=== PATIENT | male | born 1950 | race Caucasian/White ===

== ENCOUNTER 2019-03-20 12:18 | Emergency (ER) | payer MEDICARE ==
--- NOTE | 2019-03-20 12:46 | EDM.PDOC ---
ED HPI GENERAL MEDICAL PROBLEM - General Chief Complaint: Medication Administration Stated Complaint: OUT OF MEDICATIONS Time Seen by Provider: 03/20/19 12:45 Source of Information: Reports: Patient History Limitations: Reports: No Limitations - History of Present Illness INITIAL COMMENTS - FREE TEXT/NARRATIVE: HISTORY AND PHYSICAL: History of present illness: Patient is a 68-year-old male who presents to the emergency room today with complaints of chronic back pain and requesting pain medication refill. He states he is from [place] and did have a relationship with a pain or shortness. He informed his pain management provider that he was moving and voiced concern that his prescriptions were able to be filled across state lines. Initially he was informed that there was no problem with filling his pain medication as long as he followed up appropriately. Patient reports that he has ran out of his morphine and was unable to fill his prescription. He did contact his pain specialist who informed him he needed to find a provider in [place] as these prescriptions were not able to be transferred out of state. He states his other medications are available to him and he does have an appointment next week with her primary care provider. He is concerned of not having any pain management until that appointment. He denies any new injury, trauma or falls. Patient denies any fever, chills, headache, change in vision, syncope or near syncope. Denies any chest pain, shortness of breath or cough. Denies any abdominal pain, nausea, vomiting, diarrhea, constipation or dysuria. Has not noted any blood in urine or stool. Patient has been eating and drinking appropriately. Other than the medication refill he offers no other concerns or complaints today. Review of systems: As per history of present illness and below otherwise all systems reviewed and negative. Past medical history: As per history of present illness and as reviewed below otherwise noncontributory. Surgical history: As per history of present illness and as reviewed below otherwise noncontributory. Social history: See social history for further information Family history: As per history of present illness and as reviewed below otherwise noncontributory. Physical exam: General: Well-developed and well-nourished 68-year-old male. Alert and oriented. Nontoxic appearing and in no acute distress. HEENT: Atraumatic, normocephalic, pupils equal and reactive bilaterally, negative for conjunctival pallor or scleral icterus, mucous membranes moist, nontender, trachea midline. No drooling or trismus noted. No meningeal signs. No hot potato voice noted. Lungs: Clear to auscultation, breath sounds equal bilaterally, chest nontender. Heart: S1S2, regular rate and rhythm without overt murmur Abdomen: Soft, nondistended, nontender. Skin: Intact, warm, dry. No lesions or rashes noted. Extremities: Atraumatic, moves all extremities per self without difficulty or deficits, negative for cords or calf pain. Neurovascular unremarkable. Neuro: Awake, alert, oriented. Cranial nerves II through XII unremarkable. Cerebellum unremarkable. Motor and sensory unremarkable throughout. Exam nonfocal. Notes: Informed patient I would not be able to fill his morphine. He states he has used hydrocodone in the past. We did call and confirm that he has an appointment with a primary care provider on March 28. I will give him [place] to help alleviate discomfort until he is able to follow-up and establish care. He declines the need for any diagnostic testing at this time. Supportive care measures were reviewed and discussed. Voices understanding and is agreeable to plan of care. Denies any further questions or concerns at this time. Diagnostics: None Therapeutics: Dilaudid IM Prescription: [place] (#30) Impression: Encounter for medication refill Chronic back pain Plan: 1. Take your medications as prescribed and as needed. 2. Keep your appointment with primary care to establish care and further medication refills. 3. Return to the ED as needed and as discussed. Definitive disposition and diagnosis as appropriate pending reevaluation and review of above. Back Pain Score (Numeric/FACES): 10 - Related Data Allergies Allergy/AdvReac Type Severity Reaction Status Date / Time codeine Allergy Dizziness Verified 03/20/19 12:46 Penicillins Allergy Rash Verified 03/20/19 12:46 Home Meds: Home Meds Acetaminophen/HYDROcodone [[place] 325-10 MG] 1 tab PO Q4H PRN #30 tab 03/20/19 [ Rx] Carisoprodol [Soma] 350 mg PO BID 03/20/19 [History] Fluticasone/Salmeterol [Advair 250-50 Diskus] 1 puff INH DAILY 03/20/19 [History ] Morphine 15 mg PO BID 03/20/19 [History] Morphine [MS Contin] 60 mg PO BID 03/20/19 [History] Sertraline HCl [Zoloft] 100 mg PO DAILY 03/20/19 [History] Umeclidinium [place] [Incruse Ellipta*] 1 puff INH DAILY 03/20/19 [History] ED ROS GENERAL - Review of Systems Review Of Systems: ROS reveals no pertinent complaints other than HPI. ED EXAM, GENERAL - Physical Exam Exam: See Below (See dictation) Course - Vital Signs Last Recorded V/S: Last Vital Signs Temp 96.7 F 03/20/19 12:40 Pulse 82 03/20/19 13:32 Resp 12 03/20/19 13:32 BP 103/71 03/20/19 13:32 Pulse Ox 94 L 03/20/19 13:32 - Orders/Labs/Meds Meds: Medications Discontinued Medications Generic Name Dose Route Start Last Admin Trade Name Freq PRN Reason Stop Dose Admin Hydromorphone HCl 1 mg 03/20/19 12:55 03/20/19 13:04 Dilaudid IM 03/20/19 12:56 Not Given ONETIME ONE Hydromorphone HCl 1 mg 03/20/19 13:03 03/20/19 13:11 Dilaudid IM 03/20/19 13:04 1 mg ONETIME ONE Administration Departure - Departure Time of Disposition: 13:00 Disposition: Home, Self-Care 01 Clinical Impression: Encounter for medication refill Chronic back pain Qualifiers: Back pain location: low back pain Back pain laterality: midline Sciatica presence: without sciatica Qualified Code(s): M54.5 - Low back pain - Discharge Information Prescriptions: Acetaminophen/HYDROcodone [[place] 325-10 MG] 1 tab PO Q4H PRN #30 tab PRN Reason: Pain Instructions: Chronic Back Pain, [id number] Referrals: PCP,None [Primary Care Provider] - Forms: ED Department Discharge Additional Instructions: The following information is given to patients seen in the emergency department who are being discharged to home. This information is to outline your options for follow-up care. We provide all patients seen in our emergency department with a follow-up referral. The need for follow-up, as well as the timing and circumstances, are variable depending upon the specifics of your emergency department visit. If you don't have a primary care physician on staff, we will provide you with a referral. We always advise you to contact your personal physician following an emergency department visit to inform them of the circumstance of the visit and for follow-up with them and/or the need for any referrals to a consulting specialist. The emergency department will also refer you to a specialist when appropriate. This referral assures that you have the opportunity for follow-up care with a specialist. All of these measure are taken in an effort to provide you with optimal care, which includes your follow-up. Under all circumstances we always encourage you to contact your private physician who remains a resource for coordinating your care. When calling for follow-up care, please make the office aware that this follow-up is from your recent emergency room visit. If for any reason you are refused follow-up, please contact the [facility] Emergency Department at and asked to speak to the emergency department charge nurse. [facility] [address] [place] [id number] [facility] [address] [place] [id number] 1. Take your medications as prescribed and as needed. 2. Keep your appointment with primary care to establish care and further medication refills. 3. Return to the ED as needed and as discussed.
[2019-03-20] MEDS ORDERED: HYDROmorphone 2 MG/ML SDV IM ONE (12:55)
[2019-03-20] MEDS ORDERED: HYDROmorphone 1 MG/ML Syringe IM ONE (13:03)
== END 2019-03-20 13:34 | disposition home or self-care (01) ==
LOC: MW.ED 12:18
DX: G89.29 Other chronic pain (principal); M54.9 Dorsalgia, unspecified; Z88.5 Allergy status to narcotic agent; Z88.0 Allergy status to penicillin; Z79.899 Other long term (current) drug therapy; Z76.0 Encounter for issue of repeat prescription
CPT/HCPCS: 96372; 99281; J1170

== ENCOUNTER 2019-03-22 18:30 | Emergency (ER) | payer MEDICARE ==
--- NOTE | 2019-03-22 19:06 | EDM.PDOC ---
ED HPI GENERAL MEDICAL PROBLEM - General Stated Complaint: CHRONIC PAIN Time Seen by Provider: 03/22/19 18:34 Source of Information: Reports: Patient History Limitations: Reports: No Limitations - History of Present Illness INITIAL COMMENTS - FREE TEXT/NARRATIVE: HISTORY AND PHYSICAL: History of present illness: Patient is a 68-year-old male presents to the ED today for desire to receive narcotic medication. Patient states he has been on chronic narcotic medication by his primary care provider in [facility]. Patient states he recently moved here about a week ago and since then has been out of his medication. Patient was seen in the ED a few days ago (03/20/2019), 2 days ago, and was given 30 of [place] to tide him over until his primary care appointment in a week. Patient states he is currently out of the [place] that he was given 2 days ago as he has taken them all. Patient states he is concerned because he is starting to have withdrawal symptoms. Patient denies any other symptoms or concerns at this time. Patient denies fever, chills, chest pain, shortness of breath, or cough. Denies headache, neck stiff ness, change in vision, syncope, or near syncope. Denies nausea, vomiting, abdominal pain, diarrhea, constipation, or dysuria. Has not noted any blood in urine or stool. Patient has been eating and drinking appropriately. Review of systems: As per history of present illness and below otherwise all systems reviewed and negative. Past medical history: As per history of present illness and as reviewed below otherwise noncontributory. Surgical history: As per history of present illness and as reviewed below otherwise noncontributory. Social history: See social history for further information Family history: As per history of present illness and as reviewed below otherwise noncontributory. Physical exam: General: Patient is alert, oriented, and in no acute distress. Patient sitting comfortably on exam table. HEENT: Atraumatic, normocephalic, pupils equal and reactive bilaterally, negative for conjunctival pallor or scleral icterus, mucous membranes moist, TMs normal bilaterally, throat clear, neck supple, nontender, trachea midline. No drooling or trismus noted. No meningeal signs. No hot potato voice noted. Lungs: Clear to auscultation, breath sounds equal bilaterally, chest nontender. Heart: S1S2, regular rate and rhythm without overt murmur Abdomen: Soft, nondistended, nontender. Negative for masses or hepatosplenomegaly. Negative for costovertebral tenderness. Pelvis: Stable nontender. Genitourinary: Deferred. Rectal: Deferred. Skin: Intact, warm, dry. No lesions or rashes noted. Extremities: Atraumatic, negative for cords or calf pain. Neurovascular unremarkable. Neuro: Awake, alert, oriented. Cranial nerves II through XII unremarkable. Cerebellum unremarkable. Motor and sensory unremarkable throughout. Exam nonfocal. Notes: Discussed the importance of follow-up with his primary care provider as scheduled. Voices understanding and is agreeable to plan of care. Denies any further questions or concerns at this time. Diagnostics: Patient declines any diagnostics. Therapeutics: None Prescription: None Impression: Encounter for medical screening Encounter for pain management Plan: 1. Take medication that has been priorly prescribed to you. Alternate ibuprofen and Tylenol as directed for pain and discomfort. 2. Rest, ice, elevate the affected area. You can apply ice and or heat 15 minutes on, 15 minutes off. 3. Follow up with the primary care provider as discussed and as scheduled. Return to the ED as needed and as discussed. Definitive disposition and diagnosis as appropriate pending reevaluation and review of above. - Related Data Allergies Allergy/AdvReac Type Severity Reaction Status Date / Time codeine Allergy Dizziness Verified 03/22/19 18:47 Penicillins Allergy Rash Verified 03/22/19 18:47 Home Meds: Home Meds Acetaminophen/HYDROcodone [[place] 325-10 MG] 1 tab PO Q4H PRN #30 tab 03/20/19 [ Rx] Carisoprodol [Soma] 350 mg PO BID 03/20/19 [History] Fluticasone/Salmeterol [Advair 250-50 Diskus] 1 puff INH DAILY 03/20/19 [History ] Morphine 15 mg PO BID 03/20/19 [History] Morphine [MS Contin] 60 mg PO BID 03/20/19 [History] Sertraline HCl [Zoloft] 100 mg PO DAILY 03/20/19 [History] Umeclidinium [place] [Incruse Ellipta*] 1 puff INH DAILY 03/20/19 [History] Past Medical History Cardiovascular History: Reports: [place] Respiratory History: Reports: COPD, Other (See Below) Other Respiratory History: O2 at home Genitourinary History: Reports: None Musculoskeletal History: Reports: Back Pain, Chronic - Infectious Disease History Infectious Disease History: Reports: None - Past Surgical History GI Surgical History: Reports: Hernia, Abdominal Social & Family History - Family History Family Medical History: Noncontributory - Tobacco Use Smoking Status *Q: Never Smoker Second Hand Smoke Exposure: No - Caffeine Use Caffeine Use: Reports: None - Recreational Drug Use Recreational Drug Use: No ED ROS GENERAL - Review of Systems Review Of Systems: ROS reveals no pertinent complaints other than HPI. ED EXAM, GENERAL - Physical Exam Exam: See Below (See dictation) Course - Vital Signs Last Recorded V/S: Last Vital Signs Temp 35.9 C 03/22/19 18:47 Pulse 100 03/22/19 19:14 Resp 20 03/22/19 19:14 BP 159/126 H 03/22/19 19:14 Pulse Ox 100 03/22/19 19:14 Departure - Departure Time of Disposition: 19:05 Disposition: Home, Self-Care 01 Clinical Impression: Encounter for pain management, Encounter for medical screening examination - Discharge Information Instructions: Medical Screening Exam Referrals: PCP,None [Primary Care Provider] - Forms: ED Department Discharge Additional Instructions: The following information is given to patients seen in the emergency department who are being discharged to home. This information is to outline your options for follow-up care. We provide all patients seen in our emergency department with a follow-up referral. The need for follow-up, as well as the timing and circumstances, are variable depending upon the specifics of your emergency department visit. If you don't have a primary care physician on staff, we will provide you with a referral. We always advise you to contact your personal physician following an emergency department visit to inform them of the circumstance of the visit and for follow-up with them and/or the need for any referrals to a consulting specialist. The emergency department will also refer you to a specialist when appropriate. This referral assures that you have the opportunity for follow-up care with a specialist. All of these measure are taken in an effort to provide you with optimal care, which includes your follow-up. Under all circumstances we always encourage you to contact your private physician who remains a resource for coordinating your care. When calling for follow-up care, please make the office aware that this follow-up is from your recent emergency room visit. If for any reason you are refused follow-up, please contact the [facility] Emergency Department at and asked to speak to the emergency department charge nurse. [facility] [address] [place] [id number] [address] 1. Take medication as prescribed. Alternate ibuprofen and Tylenol as directed for pain and discomfort. 2. Follow-up with a primary care provider as discussed. Return to the ED as needed and as discussed.
== END 2019-03-22 19:30 | disposition home or self-care (01) ==
LOC: MW.ED 18:30
DX: Z13.9 Encounter for screening, unspecified (principal); J44.9 Chronic obstructive pulmonary disease, unspecified; I25.2 Old myocardial infarction; Z79.899 Other long term (current) drug therapy; Z88.0 Allergy status to penicillin; Z88.5 Allergy status to narcotic agent
CPT/HCPCS: 93005; 99282; 99284

== ENCOUNTER 2019-04-11 12:52 | Emergency (ER) | payer MEDICARE ==
[2019-04-11] MEDS ORDERED: Acetaminophen/HYDROcodone 325-5 MG Tab PO ONE (13:08)
--- NOTE | 2019-04-11 13:12 | EDM.PDOC ---
ED HPI GENERAL MEDICAL PROBLEM - General Chief Complaint: Back Pain or Injury Stated Complaint: BACK PAIN Time Seen by Provider: 04/11/19 12:53 Source of Information: Reports: Patient History Limitations: Reports: No Limitations - History of Present Illness INITIAL COMMENTS - FREE TEXT/NARRATIVE: HISTORY AND PHYSICAL: History of present illness: Patient is a 68-year-old male who presents to the emergency room requesting narcotic pain medication refill. Patient states he has been on narcotic pain medication chronically for several years. Recently moved to [place] from [place] and states that his provider is no longer able to prescribe for him. He has been seen in our emergency room several times for medication refill. He states he did have an appointment with a primary care provider yesterday but this appointment was canceled. Other than the desire for pain medication refill. Offers no other concerns or complaints at this time. Patient denies any fever, chills, headache, change in vision, syncope or near syncope. Denies any chest pain, back pain, shortness of breath or cough. Denies any abdominal pain, nausea, vomiting, diarrhea, constipation or dysuria. Has not noted any blood in urine or stool. Patient has been eating and drinking appropriately. Review of systems: As per history of present illness and below otherwise all systems reviewed and negative. Past medical history: As per history of present illness and as reviewed below otherwise noncontributory. Surgical history: As per history of present illness and as reviewed below otherwise noncontributory. Social history: See social history for further information Family history: As per history of present illness and as reviewed below otherwise noncontributory. Physical exam: General: Well-developed and well-nourished 68-year-old male. Alert and oriented. Nontoxic appearing and in no acute distress. HEENT: Atraumatic, normocephalic, pupils equal and reactive bilaterally, negative for conjunctival pallor or scleral icterus, mucous membranes moist, neck supple, nontender, trachea midline. No drooling or trismus noted. No meningeal signs. No hot potato voice noted. Lungs: Clear to auscultation, breath sounds equal bilaterally, chest nontender. Heart: S1S2, regular rate and rhythm without overt murmur Abdomen: Soft, nondistended, nontender. Skin: Intact, warm, dry. No lesions or rashes noted. Extremities: Atraumatic, moves all extremities per self without difficulty or deficits, negative for cords or calf pain. Neurovascular unremarkable. Neuro: Awake, alert, oriented. Cranial nerves II through XII unremarkable. Cerebellum unremarkable. Motor and sensory unremarkable throughout. Exam nonfocal. Notes: I did contact the clinic office to see if we could get him an expedited appointment. The office states that he canceled the appointment himself yesterday and did not show up. We were able to get him an appointment for April 17 at 10:30 AM with his newly appointed primary care provider. Patient declines the need for any diagnostics at this time. Supportive care measures were reviewed and discussed. Voices understanding and is agreeable to plan of care. Denies any further questions or concerns at this time. Diagnostics: None Therapeutics: [facility] Prescription: Diclofenac Impression: Encounter for medication refill Encounter for chronic pain management Plan: 1. The medication you received does cause drowsiness so do not drive for the remaining day 2. When resting please lay on a flat firm surface. Limit your immobility to prevent muscle stiffness, get up to ambulate/move around/gentle stretching multiple times throughout the day. May alternate heat and ice to the painful areas 3. Tylenol as needed for back pain. Diclofenac is an anti-inflammatory so do not take any additional NSAIDs with this medication, such as ibuprofen or Aleve. 4. We made you an expedited follow up appointment with Dr Gonzales at [facility] for April 17 (Monday) at 10:30am. 5. Return to the ED as needed and as discussed. Definitive disposition and diagnosis as appropriate pending reevaluation and review of above. Duration: Chronic back Pain Score (Numeric/FACES): 10 - Related Data Allergies Allergy/AdvReac Type Severity Reaction Status Date / Time codeine Allergy Dizziness Verified 03/22/19 18:47 Penicillins Allergy Rash Verified 03/22/19 18:47 Home Meds: Home Meds Acetaminophen/HYDROcodone [[place] 325-10 MG] 1 tab PO Q4H PRN #30 tab 03/20/19 [ Rx] Carisoprodol [Soma] 350 mg PO BID 03/20/19 [History] Fluticasone/Salmeterol [Advair 250-50 Diskus] 1 puff INH DAILY 03/20/19 [History ] Sertraline HCl [Zoloft] 100 mg PO DAILY 03/20/19 [History] Umeclidinium [place] [Incruse Ellipta*] 1 puff INH DAILY 03/20/19 [History] Diclofenac Sodium [Voltaren] 75 mg PO BIDMEALS PRN #30 tab.cr 04/11/19 [Rx] Morphine [MS Contin] 75 mg PO Q12HR 04/11/19 [History] Past Medical History HEENT History: Reports: None Cardiovascular History: Reports: [place] Respiratory History: Reports: COPD, Other (See Below) Other Respiratory History: O2 at home Gastrointestinal History: Reports: None Genitourinary History: Reports: None Musculoskeletal History: Reports: Back Pain, Chronic Neurological History: Reports: None Psychiatric History: Reports: None Endocrine/Metabolic History: Reports: None Hematologic History: Reports: None Immunologic History: Reports: None Oncologic (Cancer) History: Reports: None Dermatologic History: Reports: None - Infectious Disease History Infectious Disease History: Reports: None - Past Surgical History Head Surgeries/Procedures: Reports: None HEENT Surgical History: Reports: None Cardiovascular Surgical History: Reports: None Respiratory Surgical History: Reports: None GI Surgical History: Reports: Hernia, Abdominal Male Surgical History: Reports: None Endocrine Surgical History: Reports: None Neurological Surgical History: Reports: None Musculoskeletal Surgical History: Reports: None Oncologic Surgical History: Reports: None Dermatological Surgical History: Reports: None Social & Family History - Family History Family Medical History: Noncontributory - Tobacco Use Smoking Status *Q: Never Smoker Second Hand Smoke Exposure: No - Caffeine Use Caffeine Use: Reports: None - Recreational Drug Use Recreational Drug Use: No ED ROS GENERAL - Review of Systems Review Of Systems: ROS reveals no pertinent complaints other than HPI. ED EXAM,LOWER BACK PAIN/INJURY - Physical Exam Exam: See Below (See dictation) Course - Vital Signs Last Recorded V/S: Last Vital Signs Temp 97.6 F 04/11/19 12:57 Pulse 112 H 04/11/19 12:57 Resp 18 04/11/19 12:57 BP 137/96 H 04/11/19 12:57 Pulse Ox 97 04/11/19 12:57 - Orders/Labs/Meds Meds: Medications Discontinued Medications Generic Name Dose Route Start Last Admin Trade Name Freq PRN Reason Stop Dose Admin Hydrocodone Bitart/Acetaminophen 2 tab 04/11/19 13:08 04/11/19 13:15 [place] 325-5 Mg PO 04/11/19 13:09 2 tab ONETIME ONE Administration Departure - Departure Time of Disposition: 13:11 Disposition: Home, Self-Care 01 Clinical Impression: Encounter for medication refill, Encounter for pain management - Discharge Information Prescriptions: Diclofenac Sodium [Voltaren] 75 mg PO BIDMEALS PRN #30 tab.cr PRN Reason: Pain Instructions: Medicine Refill at the Emergency Department Referrals: PCP,None [Primary Care Provider] - Forms: ED Department Discharge Additional Instructions: The following information is given to patients seen in the emergency department who are being discharged to home. This information is to outline your options for follow-up care. We provide all patients seen in our emergency department with a follow-up referral. The need for follow-up, as well as the timing and circumstances, are variable depending upon the specifics of your emergency department visit. If you don't have a primary care physician on staff, we will provide you with a referral. We always advise you to contact your personal physician following an emergency department visit to inform them of the circumstance of the visit and for follow-up with them and/or the need for any referrals to a consulting specialist. The emergency department will also refer you to a specialist when appropriate. This referral assures that you have the opportunity for follow-up care with a specialist. All of these measure are taken in an effort to provide you with optimal care, which includes your follow-up. Under all circumstances we always encourage you to contact your private physician who remains a resource for coordinating your care. When calling for follow-up care, please make the office aware that this follow-up is from your recent emergency room visit. If for any reason you are refused follow-up, please contact the [facility] at and asked to speak to the emergency department charge nurse. [facility] [address] [place] [address] [id number] [address] [address] 1. You can not use the emergency room for chronic pain management and medication refills. 2. When resting please lay on a flat firm surface. Limit your immobility to prevent muscle stiffness, get up to ambulate/move around/gentle stretching multiple times throughout the day. May alternate heat and ice to the painful areas 3. Tylenol as needed for back pain. Diclofenac is an anti-inflammatory so do not take any additional NSAIDs with this medication, such as ibuprofen or Aleve. 4. We made you an expedited follow up appointment with Dr Gonzales at [facility] for April 17 (Monday) at 10:30am. 5. Return to the ED as needed and as discussed.
== END 2019-04-11 13:21 | disposition home or self-care (01) ==
LOC: MW.ED 12:52
DX: Z76.0 Encounter for issue of repeat prescription (principal); Z01.89 Encounter for other specified special examinations; I25.2 Old myocardial infarction; J44.9 Chronic obstructive pulmonary disease, unspecified; Z88.0 Allergy status to penicillin; Z88.5 Allergy status to narcotic agent; Z79.899 Other long term (current) drug therapy; Z99.81 Dependence on supplemental oxygen
CPT/HCPCS: 99281; A9270

== ENCOUNTER 2019-11-16 05:52 | Inpatient (IN) | payer MEDICARE ==
[2019-11-16] MEDS ORDERED: Albuterol/Ipratropium 3.0-0.5 MG/3 ML Neb Soln NEB ONE (05:55)
[2019-11-16] MEDS ORDERED: Ondansetron 4 MG/2 ML SDV IVPUSH ONE (05:58)
--- NOTE | 2019-11-16 05:58 | EDM.PDOC ---
ED HPI GENERAL MEDICAL PROBLEM - General Stated Complaint: CHEST PAIN Time Seen by Provider: 11/16/19 05:52 - History of Present Illness INITIAL COMMENTS - FREE TEXT/NARRATIVE: Pt with a reported pmh of MD in the past, COPD, and Chronic pain presents with Central chest pressure like pain, moderate since last evening. Pt also reports having a morphine pump for chronic neck and back pain, but it has been out for 1 year. Pt reports taking breathing treatments, but not maintance inhaler due to side effects. chest area Pain Score (Numeric/FACES): 10 - Related Data Allergies Allergy/AdvReac Type Severity Reaction Status Date / Time codeine Allergy Dizziness Verified 11/16/19 05:59 Penicillins Allergy Rash Verified 11/16/19 05:59 Home Meds: Home Meds Fluticasone/Salmeterol [Advair 250-50 Diskus] 1 puff INH DAILY 03/20/19 [History ] Sertraline HCl [Zoloft] 100 mg PO DAILY 03/20/19 [History] Umeclidinium [place] [Incruse Ellipta*] 1 puff INH DAILY 03/20/19 [History] carisoprodoL [Soma] 350 mg PO BID 03/20/19 [History] Diclofenac Sodium [Voltaren] 75 mg PO BIDMEALS PRN #30 tab.cr 04/11/19 [Rx] Morphine [MS Contin] 90 mg PO Q12HR 04/11/19 [History] Past Medical History HEENT History: Reports: None Cardiovascular History: Reports: [place] Respiratory History: Reports: COPD, Other (See Below) Other Respiratory History: O2 at home Gastrointestinal History: Reports: None Genitourinary History: Reports: None Musculoskeletal History: Reports: Back Pain, Chronic Neurological History: Reports: None Psychiatric History: Reports: None Endocrine/Metabolic History: Reports: None Hematologic History: Reports: None Immunologic History: Reports: None Oncologic (Cancer) History: Reports: None Dermatologic History: Reports: None - Infectious Disease History Infectious Disease History: Reports: None - Past Surgical History Head Surgeries/Procedures: Reports: None HEENT Surgical History: Reports: None Cardiovascular Surgical History: Reports: None Respiratory Surgical History: Reports: None GI Surgical History: Reports: Hernia, Abdominal Male Surgical History: Reports: None Endocrine Surgical History: Reports: None Neurological Surgical History: Reports: None Musculoskeletal Surgical History: Reports: None Oncologic Surgical History: Reports: None Dermatological Surgical History: Reports: None Social & Family History - Family History Family Medical History: Noncontributory - Caffeine Use Caffeine Use: Reports: None ED ROS GENERAL - Review of Systems Review Of Systems: See Below Constitutional: Reports: Malaise, Fatigue HEENT: Reports: No Symptoms Respiratory: Reports: Shortness of Breath, Cough Cardiovascular: Reports: Chest Pain GI/Abdominal: Reports: Nausea, Vomiting. Denies: Abdominal Pain Neurological: Reports: No Symptoms ED EXAM, GENERAL - Physical Exam Exam: See Below Exam Limited By: No Limitations General Appearance: Alert, No Apparent Distress Eye Exam: Bilateral Eye: Corneal Abrasion Head: Atraumatic, Normocephalic Respiratory/Chest: No Respiratory Distress, Lungs Clear, Normal Breath Sounds Cardiovascular: Regular Rate, Rhythm, No Murmur GI/Abdominal: Soft, Non-Tender, No Distention Extremities: Normal Inspection Neurological: Alert, Oriented EKG INTERPRETATION Rhythm: NSR QRS: Normal ST-T: Normal EKG Interpretation Comments: No STEMI Course - Vital Signs Last Recorded V/S: Last Vital Signs Temp 98.3 F 11/16/19 05:55 Pulse 120 H 11/16/19 07:36 Resp 20 11/16/19 07:36 BP 134/83 11/16/19 07:36 Pulse Ox 99 11/16/19 07:36 - Orders/Labs/Meds Orders: Active Orders 24 hr Category Date Time Status Admission Status [Patient Status] [ADT] Stat ADT 11/16/19 07:47 Ordered EKG Documentation Completion [RC] STAT Care 11/16/19 05:57 Active RT Aerosol Therapy [RC] ASDIRECTED Care 11/16/19 05:55 Active RT Aerosol Therapy [RC] ASDIRECTED Care 11/16/19 06:11 Active CULTURE BLOOD [BC] Stat Lab 11/16/19 06:55 Received CULTURE BLOOD [BC] Stat Lab 11/16/19 07:10 Received Levofloxacin/Dextrose 5%-Water [Levaquin in D5W 750 MG/ Med 11/16/19 07:16 Active 150 ML] 750 mg Premix Bag 1 bag IV ONETIME Blood Culture x2 Reflex Set [OM.PC] Stat Oth 11/16/19 06:49 Ordered Medication Orders Levofloxacin/Dextrose 750 mg/ (Premix) 150 mls @ 100 mls/hr IV ONETIME ONE Stop: 11/16/19 08:45 Last Admin: 11/16/19 07:26 Dose: 100 mls/hr Labs: Laboratory Tests 11/16/19 11/16/19 11/16/19 Range/Units 06:05 06:05 06:05 WBC 12.13 H (4.0-11.0) K/uL RBC 6.24 H (4.50-5.90) M/uL Hgb 12.8 L (13.0-17.0) g/dL Hct 40.1 (38.0-50.0) % MCV 64.3 L (80.0-98.0) fL MCH 20.5 L (27.0-32.0) pg MCHC 31.9 (31.0-37.0) g/dL RDW Std Deviation 39.2 (28.0-62.0) fl RDW Coeff of Roger 17 H (11.0-15.0) % Plt Count 229 (150-400) K/uL Add Manual Diff YES Neutrophils % (Manual) 76 (48.0-80.0) % Lymphocytes % (Manual) 18 (16.0-40.0) % Monocytes % (Manual) 6 (0.0-15.0) % Nucleated RBC % 0.0 /100WBC Absolute Seg Neuts 9.2 H (1.4-5.7) Lymphocytes # (Manual) 2.2 (0.6-2.4) Monocytes # (Manual) 0.7 (0.0-0.8) Nucleated RBCs # 0 K/uL INR 1.14 D-Dimer, Quantitative (0.0-0.50) mg/L FEU Lactate (0.20-2.00) mmol/L Sodium 142 (136-148) mmol/L Potassium 3.3 L (3.5-5.1) mmol/L Chloride 105 (98-107) mmol/L Carbon Dioxide 20.4 L (21.0-32.0) mmol/L BUN 13 (7.0-18.0) mg/dL Creatinine 1.1 (0.8-1.3) mg/dL Est Cr Clr Drug Dosing 70.55 mL/min Estimated GFR (MDRD) > 60.0 ml/min Glucose 126 H (74-106) mg/dL Calcium 9.5 (8.5-10.1) mg/dL Total Bilirubin 1.0 (0.2-1.0) mg/dL AST 19 (15-37) IU/L ALT 23 (14-63) IU/L Alkaline Phosphatase 71 (46-116) U/L Troponin I < 0.050 (0.000-0.056) ng/mL B-Natriuretic Peptide (<100) PG/ML Total Protein 8.6 H (6.4-8.2) g/dL Albumin 4.3 (3.4-5.0) g/dL Globulin 4.3 H (2.6-4.0) g/dL Albumin/Globulin Ratio 1.0 (0.9-1.6) Lipase 332 (73-393) U/L 11/16/19 11/16/19 11/16/19 Range/Units 06:05 06:05 07:10 WBC (4.0-11.0) K/uL RBC (4.50-5.90) M/uL Hgb (13.0-17.0) g/dL Hct (38.0-50.0) % MCV (80.0-98.0) fL MCH (27.0-32.0) pg MCHC (31.0-37.0) g/dL RDW Std Deviation (28.0-62.0) fl RDW Coeff of Roger (11.0-15.0) % Plt Count (150-400) K/uL Add Manual Diff Neutrophils % (Manual) (48.0-80.0) % Lymphocytes % (Manual) (16.0-40.0) % Monocytes % (Manual) (0.0-15.0) % Nucleated RBC % /100WBC Absolute Seg Neuts (1.4-5.7) Lymphocytes # (Manual) (0.6-2.4) Monocytes # (Manual) (0.0-0.8) Nucleated RBCs # K/uL INR D-Dimer, Quantitative 0.39 (0.0-0.50) mg/L FEU Lactate 3.8 H* (0.20-2.00) mmol/L Sodium (136-148) mmol/L Potassium (3.5-5.1) mmol/L Chloride (98-107) mmol/L Carbon Dioxide (21.0-32.0) mmol/L BUN (7.0-18.0) mg/dL Creatinine (0.8-1.3) mg/dL Est Cr Clr Drug Dosing mL/min Estimated GFR (MDRD) ml/min Glucose (74-106) mg/dL Calcium (8.5-10.1) mg/dL Total Bilirubin (0.2-1.0) mg/dL AST (15-37) IU/L ALT (14-63) IU/L Alkaline Phosphatase (46-116) U/L Troponin I (0.000-0.056) ng/mL B-Natriuretic Peptide 25 (<100) PG/ML Total Protein (6.4-8.2) g/dL Albumin (3.4-5.0) g/dL Globulin (2.6-4.0) g/dL Albumin/Globulin Ratio (0.9-1.6) Lipase (73-393) U/L 11/16/19 Range/Units 07:10 WBC (4.0-11.0) K/uL RBC (4.50-5.90) M/uL Hgb (13.0-17.0) g/dL Hct (38.0-50.0) % MCV (80.0-98.0) fL MCH (27.0-32.0) pg MCHC (31.0-37.0) g/dL RDW Std Deviation (28.0-62.0) fl RDW Coeff of Roger (11.0-15.0) % Plt Count (150-400) K/uL Add Manual Diff Neutrophils % (Manual) (48.0-80.0) % Lymphocytes % (Manual) (16.0-40.0) % Monocytes % (Manual) (0.0-15.0) % Nucleated RBC % /100WBC Absolute Seg Neuts (1.4-5.7) Lymphocytes # (Manual) (0.6-2.4) Monocytes # (Manual) (0.0-0.8) Nucleated RBCs # K/uL INR D-Dimer, Quantitative (0.0-0.50) mg/L FEU Lactate (0.20-2.00) mmol/L Sodium (136-148) mmol/L Potassium (3.5-5.1) mmol/L Chloride (98-107) mmol/L Carbon Dioxide (21.0-32.0) mmol/L BUN (7.0-18.0) mg/dL Creatinine (0.8-1.3) mg/dL Est Cr Clr Drug Dosing mL/min Estimated GFR (MDRD) ml/min Glucose (74-106) mg/dL Calcium (8.5-10.1) mg/dL Total Bilirubin (0.2-1.0) mg/dL AST (15-37) IU/L ALT (14-63) IU/L Alkaline Phosphatase (46-116) U/L Troponin I < 0.050 (0.000-0.056) ng/mL B-Natriuretic Peptide (<100) PG/ML Total Protein (6.4-8.2) g/dL Albumin (3.4-5.0) g/dL Globulin (2.6-4.0) g/dL Albumin/Globulin Ratio (0.9-1.6) Lipase (73-393) U/L Meds: Medications Generic Name Dose Route Start Last Admin Trade Name Freq PRN Reason Stop Dose Admin Levofloxacin/Dextrose 750 mg/ 150 mls @ 100 mls/hr 11/16/19 07:16 11/16/19 07 :26 Premix IV 11/16/19 08:45 100 mls/hr ONETIME ONE Administration Discontinued Medications Generic Name Dose Route Start Last Admin Trade Name Freq PRN Reason Stop Dose Admin Albuterol 5 mg 11/16/19 06:11 11/16/19 06:18 Proventil Neb Soln NEB 11/16/19 06:12 5 mg ONETIME ONE Administration Albuterol/Ipratropium 3 ml 11/16/19 05:55 11/16/19 06:08 Duoneb 3.0-0.5 Mg/3 Ml NEB 11/16/19 05:56 3 ml ONETIME ONE Administration Methylprednisolone Sodium Succinate 60 mg 11/16/19 06:09 11/16/19 06:20 Solu-Medrol IVPUSH 11/16/19 06:10 60 mg ONETIME ONE Administration Morphine Sulfate 4 mg 11/16/19 06:13 11/16/19 06:22 Morphine IVPUSH 11/16/19 06:14 4 mg ONETIME ONE Administration Ondansetron HCl 4 mg 11/16/19 05:58 11/16/19 06:08 Zofran IVPUSH 11/16/19 05:59 4 mg ONETIME ONE Administration - Re-Assessments/Exams Free Text/Narrative Re-Assessment/Exam: 11/16/19 07:51 Pt given multiple nebs with significant improvement in oxygenation, ventilation and pain. Cardiac work up with ECG and serial troponins negative. D-Dimer negative. Dr. Longo consulted and pt admitted for Observation. Steroids and levaquin given. pt comfortable with plan. Departure - Departure Time of Disposition: 07:53 Disposition: Refer to Observation Condition: Good Clinical Impression: Shortness of breath Sepsis Event Note - Focused Exam Vital Signs: Vital Signs Temp Pulse Resp BP Pulse Ox 11/16/19 07:36 120 H 20 134/83 99 11/16/19 06:24 103 H 22 H 117/62 100 11/16/19 05:55 98.3 F 109 H 20 139/90 96 Date Exam was Performed: 11/16/19 Time Exam was Performed: 07:50 - My Orders Last 24 Hours: My Active Orders 11/16/19 05:55 RT Aerosol Therapy [RC] ASDIRECTED 11/16/19 05:57 EKG Documentation Completion [RC] STAT 11/16/19 06:11 RT Aerosol Therapy [RC] ASDIRECTED 11/16/19 06:49 Blood Culture x2 Reflex Set [OM.PC] Stat 11/16/19 06:55 CULTURE BLOOD [BC] Stat 11/16/19 07:10 CULTURE BLOOD [BC] Stat 11/16/19 07:16 Levofloxacin/Dextrose 5%-Water [Levaquin in D5W 750 MG/150 ML] 750 mg Premix Bag 1 bag IV ONETIME 11/16/19 07:47 Admission Status [Patient Status] [ADT] Stat - Assessment/Plan Last 24 Hours: My Active Orders 11/16/19 05:55 RT Aerosol Therapy [RC] ASDIRECTED 11/16/19 05:57 EKG Documentation Completion [RC] STAT 11/16/19 06:11 RT Aerosol Therapy [RC] ASDIRECTED 11/16/19 06:49 Blood Culture x2 Reflex Set [OM.PC] Stat 11/16/19 06:55 CULTURE BLOOD [BC] Stat 11/16/19 07:10 CULTURE BLOOD [BC] Stat 11/16/19 07:16 Levofloxacin/Dextrose 5%-Water [Levaquin in D5W 750 MG/150 ML] 750 mg Premix Bag 1 bag IV ONETIME 11/16/19 07:47 Admission Status [Patient Status] [ADT] Stat
[2019-11-16] MEDS ORDERED: methylPREDNISolone Sodium Succinate 40 MG/1 ML SDV IVPUSH ONE (06:09)
[2019-11-16] MEDS ORDERED: Albuterol 0.083% 2.5 MG/3 ML Neb Soln NEB ONE (06:11)
[2019-11-16] MEDS ORDERED: Morphine 4 MG/ML Syringe IVPUSH ONE (06:13)
--- NOTE | 2019-11-16 06:17 | CR ---
INDICATION: Chest pain, shortness of breath TECHNIQUE: Chest radiograph 1 view COMPARISON: None FINDINGS: Mediastinum: The mediastinum is normal in appearance. The heart silhouette is normal in size and morphology. Lung: There is a 6 mm nodule present in the right lung base, likely a calcified granuloma given its density for size. No sign of pleural effusion seen. No pneumothorax is identified. Bone and Soft tissue: ACDF of the cervical spine is noted. 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 IMPRESSION: 1. There is a 6 mm nodule present in the right lung base, likely a calcified granuloma given its density for size. Comparison with any prior outside imaging is recommended. If these cannot be obtained, follow up chest radiograph in 3 months is warranted to document stability. Dictated by Howie Triplett MD @ 11/16/2019 6:15:06 AM Dictated by: Howie Triplett MD @ 11/16/2019 06:15:09 (Electronically Signed)
[2019-11-16 06:41] LABS: BLOOD UREA NITROGEN,BUN 13 mg/dL (7.0-18.0); CARBON DIOXIDE,CO2 20.4 mmol/L (21.0-32.0); CHLORIDE,CL 105 mmol/L (98-107); GLUCOSE RANDOM 126 mg/dL (74-106); LIPASE 332 U/L (73-393); POTASSIUM,K 3.3 mmol/L (3.5-5.1); SODIUM,NA 142 mmol/L (136-148)
[2019-11-16] MEDS ORDERED: Levofloxacin/Dextrose 5%-Water 750 MG in Premix Bag 1 BAG IV ONE (07:16)
[2019-11-16] MEDS ORDERED: Albuterol/Ipratropium 3.0-0.5 MG/3 ML Neb Soln NEB PRN (08:56)
[2019-11-16] MEDS ORDERED: Lactated Ringers 1,000 ML IV SCH (09:00)
--- NOTE | 2019-11-16 09:40 | PCM.HP.2 ---
H&P History of Present Illness - General Date of Service: 11/16/19 Admit Problem/Dx: Admission Diagnosis/Problem Admission Diagnosis/Problem Shortness of breath - History of Present Illness Initial Comments - Free Text/Narative: Pt with PMH of CAD, COPD, panic attacks, and Chronic pain presents with chest pain, started since last evening, pain is sharp and comes in goes intermittently. No radiation. Patient also reports worsening shortness of breath. Patient states that he was diagnosed with pneumonia few weeks back and "suspected he has pneumonia". He was on home oxygen intermittently but currently has no home oxygen. Pt also reports having a morphine pump for chronic neck and back pain, but it has been non-functional for 1 year. He hasn' t been able to get it removed yet as he needs "specialized surgeon" as per the patient. Pt reports taking breathing treatments, but not maintenance inhaler due to side effects. Patient xray showed no infiltrate but did show lung nodule which needs outpatient f/u. Patient was tachycardiac, but not hypoxic, was admitted fro COPD exacerbation. Onset of Symptoms: Reports: Gradual Duration of Symptoms: Reports: Day(s): Location: Reports: Chest Quality: Reports: Sharp Severity: Moderate Improves with: Reports: None Worsens with: Reports: None chest area Pain Score (Numeric/FACES): 10 - Related Data Allergies/Adverse Reactions: Allergies Allergy/AdvReac Type Severity Reaction Status Date / Time codeine Allergy Dizziness Verified 11/16/19 08:40 Penicillins Allergy Rash Verified 11/16/19 08:40 Home Medications: Home Meds Fluticasone/Salmeterol [Advair 250-50 Diskus] 1 puff INH DAILY 03/20/19 [History ] Sertraline HCl [Zoloft] 100 mg PO DAILY 03/20/19 [History] Umeclidinium [place] [Incruse Ellipta*] 1 puff INH DAILY 03/20/19 [History] carisoprodoL [Soma] 350 mg PO BID PRN 03/20/19 [History] Diclofenac Sodium [Voltaren] 75 mg PO BIDMEALS PRN #30 tab.cr 04/11/19 [Rx] Morphine Sulfate 15 mg PO BID PRN 11/16/19 [History] Morphine Sulfate [Morphine Sulfate Cr] 60 mg PO BID PRN 02/15/20 [History] Morphine Sulfate [Morphine Sulfate ER] 15 mg PO BID PRN 11/16/19 [History] Omeprazole 20 mg PO BID 11/16/19 [History] Past Medical History HEENT History: Reports: None Cardiovascular History: Reports: [place] Respiratory History: Reports: COPD, Other (See Below) Other Respiratory History: O2 at home Gastrointestinal History: Reports: None Genitourinary History: Reports: None Musculoskeletal History: Reports: Back Pain, Chronic Neurological History: Reports: None Psychiatric History: Reports: None Endocrine/Metabolic History: Reports: None 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 [employer] 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: None Hematologic History: Reports: None Immunologic History: Reports: None Oncologic (Cancer) History: Reports: None Dermatologic History: Reports: None - Infectious Disease History Infectious Disease History: Reports: Chicken Pox, Measles, Mumps, Shingles - Past Surgical History Head Surgeries/Procedures: Reports: None HEENT Surgical History: Reports: None Cardiovascular Surgical History: Reports: None Respiratory Surgical History: Reports: None GI Surgical History: Reports: Hernia, Abdominal Male Surgical History: Reports: None Endocrine Surgical History: Reports: None Neurological Surgical History: Reports: None Musculoskeletal Surgical History: Reports: None Oncologic Surgical History: Reports: None Dermatological Surgical History: Reports: None Social & Family History - Family History Family Medical History: Noncontributory - Tobacco Use Smoking Status *Q: Never Smoker Used Tobacco, but Quit: No Second Hand Smoke Exposure: No - Caffeine Use Caffeine Use: Reports: Soda - Recreational Drug Use Recreational Drug Use: No H&P Review of Systems - Review of Systems: Review Of Systems: See Below General: Denies: Fever, Chills, Malaise HEENT: Denies: Contact Lenses Pulmonary: Reports: Shortness of Breath, Wheezing, Cough. Denies: Pleuritic Chest Pain, Sputum, Hemoptysis Cardiovascular: Reports: Chest Pain, Dyspnea on Exertion. Denies: Palpitations , Orthopnea, Edema, Lightheadedness, Syncope Gastrointestinal: Reports: Abdominal Pain (chronic ). Denies: Anorexia, Black Stool, Bloody Stool, Constipation, Diarrhea, Decreased Appetite Genitourinary: Denies: Dysuria, Frequency, Burning Skin: Denies: Cyanosis, Jaundice, Mottled Exam - Exam Exam: See Below - Vital Signs Vital Signs: Last Vital Signs Temp 36.4 C 11/16/19 08:41 Pulse 120 H 11/16/19 08:41 Resp 20 11/16/19 08:41 BP 126/67 11/16/19 08:41 Pulse Ox 99 11/16/19 08:41 Weight: 93.8 kg - Exam Quality Assessment: Supplemental Oxygen General: Alert, Oriented Neck: Supple, Trachea Midline Lungs: Decreased Breath Sounds, Wheezing Cardiovascular: Regular Rhythm, Tachycardia GI/Abdominal Exam: Normal Bowel Sounds, Soft, Distended, Hernia, Mass Back Exam: Decreased Range of Motion, Muscle Spasm Extremities: Normal Inspection, Normal Range of Motion - Patient Data Lab Results Last 24 hrs: Laboratory Results - last 24 hr 11/16/19 11/16/19 11/16/19 Range/Units 06:05 06:05 06:05 WBC 12.13 H (4.0-11.0) K/uL RBC 6.24 H (4.50-5.90) M/uL Hgb 12.8 L (13.0-17.0) g/dL Hct 40.1 (38.0-50.0) % MCV 64.3 L (80.0-98.0) fL MCH 20.5 L (27.0-32.0) pg MCHC 31.9 (31.0-37.0) g/dL RDW Std Deviation 39.2 (28.0-62.0) fl RDW Coeff of Roger 17 H (11.0-15.0) % Plt Count 229 (150-400) K/uL Add Manual Diff YES Neutrophils % (Manual) 76 (48.0-80.0) % Lymphocytes % (Manual) 18 (16.0-40.0) % Monocytes % (Manual) 6 (0.0-15.0) % Nucleated RBC % 0.0 /100WBC Absolute Seg Neuts 9.2 H (1.4-5.7) Lymphocytes # (Manual) 2.2 (0.6-2.4) Monocytes # (Manual) 0.7 (0.0-0.8) Nucleated RBCs # 0 K/uL INR 1.14 D-Dimer, Quantitative (0.0-0.50) mg/L FEU Lactate (0.20-2.00) mmol/L Sodium 142 (136-148) mmol/L Potassium 3.3 L (3.5-5.1) mmol/L Chloride 105 (98-107) mmol/L Carbon Dioxide 20.4 L (21.0-32.0) mmol/L BUN 13 (7.0-18.0) mg/dL Creatinine 1.1 (0.8-1.3) mg/dL Est Cr Clr Drug Dosing 70.55 mL/min Estimated GFR (MDRD) > 60.0 ml/min Glucose 126 H (74-106) mg/dL Calcium 9.5 (8.5-10.1) mg/dL Total Bilirubin 1.0 (0.2-1.0) mg/dL AST 19 (15-37) IU/L ALT 23 (14-63) IU/L Alkaline Phosphatase 71 (46-116) U/L Troponin I < 0.050 (0.000-0.056) ng/mL B-Natriuretic Peptide (<100) PG/ML Total Protein 8.6 H (6.4-8.2) g/dL Albumin 4.3 (3.4-5.0) g/dL Globulin 4.3 H (2.6-4.0) g/dL Albumin/Globulin Ratio 1.0 (0.9-1.6) Lipase 332 (73-393) U/L 11/16/19 11/16/19 11/16/19 Range/Units 06:05 06:05 07:10 WBC (4.0-11.0) K/uL RBC (4.50-5.90) M/uL Hgb (13.0-17.0) g/dL Hct (38.0-50.0) % MCV (80.0-98.0) fL MCH (27.0-32.0) pg MCHC (31.0-37.0) g/dL RDW Std Deviation (28.0-62.0) fl RDW Coeff of Roger (11.0-15.0) % Plt Count (150-400) K/uL Add Manual Diff Neutrophils % (Manual) (48.0-80.0) % Lymphocytes % (Manual) (16.0-40.0) % Monocytes % (Manual) (0.0-15.0) % Nucleated RBC % /100WBC Absolute Seg Neuts (1.4-5.7) Lymphocytes # (Manual) (0.6-2.4) Monocytes # (Manual) (0.0-0.8) Nucleated RBCs # K/uL INR D-Dimer, Quantitative 0.39 (0.0-0.50) mg/L FEU Lactate 3.8 H* (0.20-2.00) mmol/L Sodium (136-148) mmol/L Potassium (3.5-5.1) mmol/L Chloride (98-107) mmol/L Carbon Dioxide (21.0-32.0) mmol/L BUN (7.0-18.0) mg/dL Creatinine (0.8-1.3) mg/dL Est Cr Clr Drug Dosing mL/min Estimated GFR (MDRD) ml/min Glucose (74-106) mg/dL Calcium (8.5-10.1) mg/dL Total Bilirubin (0.2-1.0) mg/dL AST (15-37) IU/L ALT (14-63) IU/L Alkaline Phosphatase (46-116) U/L Troponin I (0.000-0.056) ng/mL B-Natriuretic Peptide 25 (<100) PG/ML Total Protein (6.4-8.2) g/dL Albumin (3.4-5.0) g/dL Globulin (2.6-4.0) g/dL Albumin/Globulin Ratio (0.9-1.6) Lipase (73-393) U/L 11/16/19 Range/Units 07:10 WBC (4.0-11.0) K/uL RBC (4.50-5.90) M/uL Hgb (13.0-17.0) g/dL Hct (38.0-50.0) % MCV (80.0-98.0) fL MCH (27.0-32.0) pg MCHC (31.0-37.0) g/dL RDW Std Deviation (28.0-62.0) fl RDW Coeff of Roger (11.0-15.0) % Plt Count (150-400) K/uL Add Manual Diff Neutrophils % (Manual) (48.0-80.0) % Lymphocytes % (Manual) (16.0-40.0) % Monocytes % (Manual) (0.0-15.0) % Nucleated RBC % /100WBC Absolute Seg Neuts (1.4-5.7) Lymphocytes # (Manual) (0.6-2.4) Monocytes # (Manual) (0.0-0.8) Nucleated RBCs # K/uL INR D-Dimer, Quantitative (0.0-0.50) mg/L FEU Lactate (0.20-2.00) mmol/L Sodium (136-148) mmol/L Potassium (3.5-5.1) mmol/L Chloride (98-107) mmol/L Carbon Dioxide (21.0-32.0) mmol/L BUN (7.0-18.0) mg/dL Creatinine (0.8-1.3) mg/dL Est Cr Clr Drug Dosing mL/min Estimated GFR (MDRD) ml/min Glucose (74-106) mg/dL Calcium (8.5-10.1) mg/dL Total Bilirubin (0.2-1.0) mg/dL AST (15-37) IU/L ALT (14-63) IU/L Alkaline Phosphatase (46-116) U/L Troponin I < 0.050 (0.000-0.056) ng/mL B-Natriuretic Peptide (<100) PG/ML Total Protein (6.4-8.2) g/dL Albumin (3.4-5.0) g/dL Globulin (2.6-4.0) g/dL Albumin/Globulin Ratio (0.9-1.6) Lipase (73-393) U/L Result Diagrams: 11/16/19 06:05 11/16/19 06:05 Sepsis Event Note - Evaluation Sepsis Screening Result: No Definite Risk - Focused Exam Vital Signs: Vital Signs Temp Pulse Resp BP Pulse Ox 11/16/19 08:41 36.4 C 120 H 20 126/67 99 11/16/19 07:36 120 H 20 134/83 99 11/16/19 06:24 103 H 22 H 117/62 100 11/16/19 05:55 36.8 C 109 H 20 139/90 96 Date Exam was Performed: 11/16/19 Time Exam was Performed: 12:50 - Problem List (1) COPD exacerbation SNOMED Code(s): 487227271 ICD Code: J44.1 - CHRONIC OBSTRUCTIVE PULMONARY DISEASE W (ACUTE) EXACERBATION Status: Acute Current Visit: Yes (2) Chest pain SNOMED Code(s): 85172586 ICD Code: R07.9 - CHEST PAIN, UNSPECIFIED Status: Acute Current Visit: Yes Problem List Initiated/Reviewed/Updated: Yes Orders Last 24hrs: Active Orders 24 hr Category Date Time Status Admission Status [Patient Status] [ADT] Stat ADT 11/16/19 07:47 Active Influenza Vaccine Charge [RC] .DISCHARGE Care 11/16/19 08:39 Active Oxygen Therapy [RC] ASDIRECTED Care 11/16/19 08:54 Active RT Aerosol Therapy [RC] ASDIRECTED Care 11/16/19 08:57 Active Telemetry Monitoring [Cardiac Monitoring] [RC] . Care 11/16/19 18:09 Active DIRECTED Vital Signs [RC] Q4H Care 11/16/19 12:00 Active Heart Healthy Diet [DIET] Diet 11/16/19 Breakfast Active CULTURE BLOOD [BC] Stat Lab 11/16/19 06:55 Received CULTURE BLOOD [BC] Stat Lab 11/16/19 07:10 Received TROPONIN I [CHEM] Routine Lab 11/16/19 10:00 Ordered Albuterol/Ipratropium [DuoNeb 3.0-0.5 MG/3 ML] Med 11/16/19 08:56 Active 3 ml NEB Q4HRRT PRN Lactated Ringers [Ringers, Lactated] 1,000 ml Med 11/16/19 09:00 Active IV ASDIRECTED methylPREDNISolone Sod Succ [Solu-MEDROL] Med 11/16/19 14:00 Active 40 mg IVPUSH Q12H Blood Culture x2 Reflex Set [OM.PC] Stat Oth 11/16/19 06:49 Ordered Medication Orders Albuterol/Ipratropium (Duoneb 3.0-0.5 Mg/3 Ml) 3 ml NEB Q4HRRT PRN PRN Reason: Shortness of Breath Lactated Ringer's (Ringers, Lactated) 1,000 mls @ 125 mls/hr IV ASDIRECTED [facility] Last Admin: 11/16/19 09:07 Dose: 125 mls/hr Methylprednisolone Sodium Succinate (Solu-Medrol) 40 mg IVPUSH Q12H [facility] Assessment/Plan Comment:: A/P: 69 y/o M comes admitted for COPD exacerbation In ER found to be tachy,BP stable, not hypoxic, EKG unremarkable for acute ST/T wave changes cont to trend Troponin Although patient meets sepsis criteria, i believe tachycardia is due to on going COPD exacerbation/albuterol, lactic acid is due to work and breathing There seems to be an component of anxiety as well driving the work of breathing Will bolus patient with LR and repeat Lactic acid Will cont IV antibiotics for possible bronchitis Will cont IV steroids Cont DuoNebs as needed Oxygen PRN Obtain UA Morphine IV for pain, hold home doses of pain Meds Ativan as needed for anxiety
[2019-11-16] MEDS ORDERED: Diclofenac Sodium 75 MG Tab.EC PO PRN (12:27)
[2019-11-16] MEDS: Morphine 2 MG/ML Syringe IVPUSH PRN ×3 (12:32→21:25)
[2019-11-16] MEDS: LORazepam 2 MG/ML SDV IVPUSH PRN ×2 (12:38→17:05)
[2019-11-16] MEDS: Lactated Ringers 1,000 ML IV SCH ×3 (12:47→19:26)
[2019-11-16] MEDS: methylPREDNISolone Sodium Succinate 40 MG/1 ML SDV IVPUSH SCH (14:34)
[2019-11-16] MEDS ORDERED: Lactated Ringers 1,000 ML IV ONE (17:00)
[2019-11-16] MEDS: Omeprazole 20 MG Cap.CR PO SCH (20:41)
[2019-11-17] MEDS: Lactated Ringers 1,000 ML IV SCH ×2 (01:18→06:20)
[2019-11-17] MEDS: Morphine 2 MG/ML Syringe IVPUSH PRN ×5 (01:36→23:11)
[2019-11-17] MEDS: methylPREDNISolone Sodium Succinate 40 MG/1 ML SDV IVPUSH SCH ×2 (01:46→14:31)
[2019-11-17 05:09] LABS: BLOOD UREA NITROGEN,BUN 12 mg/dL (7.0-18.0); CARBON DIOXIDE,CO2 25.8 mmol/L (21.0-32.0); CHLORIDE,CL 106 mmol/L (98-107); GLUCOSE RANDOM 127 mg/dL (74-106); POTASSIUM,K 4.4 mmol/L (3.5-5.1); SODIUM,NA 142 mmol/L (136-148)
[2019-11-17] MEDS: Omeprazole 20 MG Cap.CR PO SCH ×2 (07:17→17:04)
[2019-11-17] MEDS: Sertraline 100 MG Tab PO SCH (08:13)
--- NOTE | 2019-11-17 10:51 | PCM.PN ---
- General Info Date of Service: 11/17/19 Subjective Update: Doing better this morning. Improved breathing. No chest pain. - Patient Data Vitals - Most Recent: Last Vital Signs Temp 36.7 C 11/17/19 07:56 Pulse 73 11/17/19 07:56 Resp 18 11/17/19 07:56 BP 141/74 H 11/17/19 07:56 Pulse Ox 97 11/17/19 07:56 Weight - Most Recent: 93.8 kg I&O - Last 24 Hours: Intake & Output 11/16/19 11/17/19 11/17/19 22:59 06:59 14:59 Intake Total 2109 3228 120 Output Total 650 Balance 2109 2138 120 Lab Results Last 24 Hours: Laboratory Results - last 24 hr 11/16/19 11/16/19 11/16/19 Range/Units 12:20 12:20 16:36 WBC (4.0-11.0) K/uL RBC (4.50-5.90) M/uL Hgb (13.0-17.0) g/dL Hct (38.0-50.0) % MCV (80.0-98.0) fL MCH (27.0-32.0) pg MCHC (31.0-37.0) g/dL RDW Std Deviation (28.0-62.0) fl RDW Coeff of Roger (11.0-15.0) % Plt Count (150-400) K/uL Neut % (Auto) (48.0-80.0) % Lymph % (Auto) (16.0-40.0) % [place] % (Auto) (0.0-15.0) % Eos % (Auto) (0.0-7.0) % Baso % (Auto) (0.0-1.5) % Neut # (Auto) (1.4-5.7) K/uL Lymph # (Auto) (0.6-2.4) K/uL [place] # (Auto) (0.0-0.8) K/uL Eos # (Auto) (0.0-0.7) K/uL Baso # (Auto) (0.0-0.1) K/uL Nucleated RBC % /100WBC Nucleated RBCs # K/uL Lactate 3.5 H* 3.0 H* (0.20-2.00) mmol/L Sodium (136-148) mmol/L Potassium (3.5-5.1) mmol/L Chloride (98-107) mmol/L Carbon Dioxide (21.0-32.0) mmol/L BUN (7.0-18.0) mg/dL Creatinine (0.8-1.3) mg/dL Est Cr Clr Drug Dosing mL/min Estimated GFR (MDRD) ml/min Glucose (74-106) mg/dL Calcium (8.5-10.1) mg/dL Phosphorus (2.6-4.7) mg/dL Magnesium (1.8-2.4) mg/dL Troponin I < 0.050 (0.000-0.056) ng/mL 11/16/19 11/17/19 11/17/19 Range/Units 22:40 04:45 04:45 WBC 18.26 H (4.0-11.0) K/uL RBC 5.14 (4.50-5.90) M/uL Hgb 10.6 L (13.0-17.0) g/dL Hct 34.1 L (38.0-50.0) % MCV 66.3 L (80.0-98.0) fL MCH 20.6 L (27.0-32.0) pg MCHC 31.1 (31.0-37.0) g/dL RDW Std Deviation 42.0 (28.0-62.0) fl RDW Coeff of Roger 17 H (11.0-15.0) % Plt Count 195 (150-400) K/uL Neut % (Auto) 82.3 H (48.0-80.0) % Lymph % (Auto) 12.0 L (16.0-40.0) % [place] % (Auto) 5.6 (0.0-15.0) % Eos % (Auto) 0.0 (0.0-7.0) % Baso % (Auto) 0.1 (0.0-1.5) % Neut # (Auto) 15.0 H (1.4-5.7) K/uL Lymph # (Auto) 2.2 (0.6-2.4) K/uL [place] # (Auto) 1.0 H (0.0-0.8) K/uL Eos # (Auto) 0.0 (0.0-0.7) K/uL Baso # (Auto) 0.0 (0.0-0.1) K/uL Nucleated RBC % 0.0 /100WBC Nucleated RBCs # 0 K/uL Lactate 2.1 H* (0.20-2.00) mmol/L Sodium 142 (136-148) mmol/L Potassium 4.4 (3.5-5.1) mmol/L Chloride 106 (98-107) mmol/L Carbon Dioxide 25.8 (21.0-32.0) mmol/L BUN 12 (7.0-18.0) mg/dL Creatinine 1.2 (0.8-1.3) mg/dL Est Cr Clr Drug Dosing 64.67 mL/min Estimated GFR (MDRD) > 60.0 ml/min Glucose 127 H (74-106) mg/dL Calcium 8.7 (8.5-10.1) mg/dL Phosphorus 2.9 (2.6-4.7) mg/dL Magnesium 1.7 L (1.8-2.4) mg/dL Troponin I (0.000-0.056) ng/mL 11/17/19 Range/Units 04:45 WBC (4.0-11.0) K/uL RBC (4.50-5.90) M/uL Hgb (13.0-17.0) g/dL Hct (38.0-50.0) % MCV (80.0-98.0) fL MCH (27.0-32.0) pg MCHC (31.0-37.0) g/dL RDW Std Deviation (28.0-62.0) fl RDW Coeff of Roger (11.0-15.0) % Plt Count (150-400) K/uL Neut % (Auto) (48.0-80.0) % Lymph % (Auto) (16.0-40.0) % [place] % (Auto) (0.0-15.0) % Eos % (Auto) (0.0-7.0) % Baso % (Auto) (0.0-1.5) % Neut # (Auto) (1.4-5.7) K/uL Lymph # (Auto) (0.6-2.4) K/uL [place] # (Auto) (0.0-0.8) K/uL Eos # (Auto) (0.0-0.7) K/uL Baso # (Auto) (0.0-0.1) K/uL Nucleated RBC % /100WBC Nucleated RBCs # K/uL Lactate 2.7 H* (0.20-2.00) mmol/L Sodium (136-148) mmol/L Potassium (3.5-5.1) mmol/L Chloride (98-107) mmol/L Carbon Dioxide (21.0-32.0) mmol/L BUN (7.0-18.0) mg/dL Creatinine (0.8-1.3) mg/dL Est Cr Clr Drug Dosing mL/min Estimated GFR (MDRD) ml/min Glucose (74-106) mg/dL Calcium (8.5-10.1) mg/dL Phosphorus (2.6-4.7) mg/dL Magnesium (1.8-2.4) mg/dL Troponin I (0.000-0.056) ng/mL [place] Results Last 24 Hours: Microbiology 11/16/19 06:55 Aerobic Blood Culture - Preliminary Blood - Venous Anaerobic Blood Culture - Preliminary NO GROWTH AFTER 1 DAY 11/16/19 07:10 Aerobic Blood Culture - Preliminary Blood - Venous - Lab Draw NO GROWTH AFTER 1 DAY Anaerobic Blood Culture - Preliminary NO GROWTH AFTER 1 DAY Med Orders - Current: Current Medications Albuterol/Ipratropium (Duoneb 3.0-0.5 Mg/3 Ml) 3 ml NEB Q4HRRT PRN PRN Reason: Shortness of Breath Diclofenac Sodium (Voltaren) 75 mg PO BIDMEALS PRN PRN Reason: Pain Levofloxacin/Dextrose 750 mg/ (Premix) 150 mls @ 100 mls/hr IV Q24H [facility] Lactated Ringer's (Ringers, Lactated) 1,000 mls @ 200 mls/hr IV ASDIRECTED [facility] Last Admin: 11/17/19 06:20 Dose: 200 mls/hr Vancomycin HCl 1.5 gm/ Premix 300 mls @ 200 mls/hr IV Q12H [facility] Lorazepam (Ativan) 1 mg IVPUSH Q4H PRN PRN Reason: Anxiety Last Admin: 11/16/19 17:05 Dose: 1 mg Methylprednisolone Sodium Succinate (Solu-Medrol) 40 mg IVPUSH Q12H [facility] Last Admin: 11/17/19 01:46 Dose: 40 mg Morphine Sulfate (Morphine) 2 mg IVPUSH Q4H PRN PRN Reason: Pain Last Admin: 11/17/19 08:09 Dose: 2 mg Omeprazole (Omeprazole) 20 mg PO BIDAC [facility] Last Admin: 11/17/19 07:17 Dose: 20 mg Sertraline HCl (Zoloft) 100 mg PO DAILY [facility] Last Admin: 11/17/19 08:13 Dose: 100 mg Vancomycin HCl (Pharmacy To Dose - Vancomycin) 1 dose .XX ASDIRECTED [facility] Discontinued Medications Albuterol (Proventil Neb Soln) 5 mg NEB ONETIME ONE Stop: 11/16/19 06:12 Last Admin: 11/16/19 06:18 Dose: 5 mg Albuterol/Ipratropium (Duoneb 3.0-0.5 Mg/3 Ml) 3 ml NEB ONETIME ONE Stop: 11/16/19 05:56 Last Admin: 11/16/19 06:08 Dose: 3 ml Levofloxacin/Dextrose 750 mg/ (Premix) 150 mls @ 100 mls/hr IV ONETIME ONE Stop: 11/16/19 08:45 Last Admin: 11/16/19 07:26 Dose: 100 mls/hr Lactated Ringer's (Ringers, Lactated) 1,000 mls @ 125 mls/hr IV ASDIRECTED [facility] Last Infusion: 11/16/19 17:03 Dose: 200 mls/hr Lactated Ringer's (Ringers, Lactated) 1,000 mls @ 500 mls/hr IV ASDIRECTED [facility] Last Admin: 11/16/19 14:59 Dose: 500 mls/hr Influenza Virus Vaccine (Pharmacy To Dose - Influenza Vaccine) 1 each IM ONETIME ONE Stop: 11/16/19 08:40 Influenza Virus Vaccine (Fluzone High-Dose Syringe) 180 mcg IM .ONCE ONE Stop: 11/16/19 08:46 Methylprednisolone Sodium Succinate (Solu-Medrol) 60 mg IVPUSH ONETIME ONE Stop: 11/16/19 06:10 Last Admin: 11/16/19 06:20 Dose: 60 mg Morphine Sulfate (Morphine) 4 mg IVPUSH ONETIME ONE Stop: 11/16/19 06:14 Last Admin: 11/16/19 06:22 Dose: 4 mg Ondansetron HCl (Zofran) 4 mg IVPUSH ONETIME ONE Stop: 11/16/19 05:59 Last Admin: 11/16/19 06:08 Dose: 4 mg - Exam General: Alert, Oriented, Cooperative, No Acute Distress Lungs: Normal Respiratory Effort, Wheezing Cardiovascular: Regular Rate, Regular Rhythm GI/Abdominal Exam: Normal Bowel Sounds, Soft, Non-Tender Extremities: Normal Inspection, No Pedal Edema Skin: Warm, Dry Sepsis Event Note - Evaluation Sepsis Screening Result: Severe Sepsis Risk - Focused Exam Vital Signs: Vital Signs Temp Pulse Resp BP Pulse Ox 11/17/19 07:56 36.7 C 73 18 141/74 H 97 11/17/19 04:00 36.2 C 73 17 127/67 98 11/17/19 00:00 36.9 C 98 18 130/65 98 Date Exam was Performed: 11/17/19 Time Exam was Performed: 13:35 - Problem List Review Problem List Initiated/Reviewed/Updated: Yes - My Orders Last 24 Hours: My Active Orders 11/17/19 09:55 Patient Status [ADT] Routine 11/17/19 10:00 Pharmacy to Dose - Vancomycin 1 dose .XX ASDIRECTED 11/17/19 10:15 VANCOmycin/Water for INJ (PEG) [VANCOmycin 1.5 GM/300 ML Premix] 1.5 gm Premix Bag 1 bag IV Q12H - Plan Plan:: A: 1. Acute COPD exacerbation, improving 2. Suspected bacteremia, gram positive cocci in chains 3. Leukocytosis, reactive 4. Elevated lactate 5. Hypomagnesemia 6. Chronic pain P: 1. Will start Vancomycin for suspected bacteremia. Likely a contaminant, however , will treat due to elevated lactate. Repeat blood cultures. Continue maintenance fluids LR 200 ml/hr. Will continue with methylprednisolone BID and Duonebs for COPD exacerbation. Continue with levaquin for now. Will replace magnesium. Dispo: 1-2 days
[2019-11-17] MEDS ORDERED: Acetaminophen 650 MG Supp RECTAL PRN (12:41)
[2019-11-17] MEDS: Levofloxacin/Dextrose 5%-Water 750 MG in Premix Bag 1 BAG IV SCH (12:54)
[2019-11-17] MEDS: Ibuprofen 800 MG Tab PO PRN ×2 (12:59→21:26)
[2019-11-17] MEDS ORDERED: Magnesium Sulfate/Water 2 GM in Premix Bag 1 BAG IV ONE (13:32)
[2019-11-18] MEDS: methylPREDNISolone Sodium Succinate 40 MG/1 ML SDV IVPUSH SCH (01:17)
[2019-11-18 02:35] LABS: BLOOD UREA NITROGEN,BUN 12 mg/dL (7.0-18.0); CARBON DIOXIDE,CO2 26.5 mmol/L (21.0-32.0); CHLORIDE,CL 105 mmol/L (98-107); GLUCOSE RANDOM 126 mg/dL (74-106); POTASSIUM,K 4.5 mmol/L (3.5-5.1); SODIUM,NA 139 mmol/L (136-148)
[2019-11-18] MEDS: Morphine 2 MG/ML Syringe IVPUSH PRN ×5 (03:39→23:43)
[2019-11-18] MEDS: LORazepam 2 MG/ML SDV IVPUSH PRN (04:24)
[2019-11-18] MEDS: Omeprazole 20 MG Cap.CR PO SCH ×2 (06:48→17:28)
[2019-11-18] MEDS: Sertraline 100 MG Tab PO SCH (08:28)
[2019-11-18 09:18] LABS: HEMOGLOBIN A1C 6.2 % (4.5-6.2)
[2019-11-18] MEDS: Levofloxacin/Dextrose 5%-Water 750 MG in Premix Bag 1 BAG IV SCH (09:59)
[2019-11-18] MEDS: Heparin Sodium 5,000 Units/ML Vial SUBCUT SCH ×2 (11:12→18:13)
--- NOTE | 2019-11-18 11:44 | PCM.PN ---
- General Info Date of Service: 11/18/19 Subjective Update: No acute events overnight. Feels better this morning. No chest pain, dyspnea. Breathing better. - Patient Data Vitals - Most Recent: Last Vital Signs Temp 36.1 C 11/18/19 07:20 Pulse 83 11/18/19 07:20 Resp 18 11/18/19 07:20 BP 138/73 11/18/19 07:20 Pulse Ox 95 11/18/19 07:20 Weight - Most Recent: 93.8 kg I&O - Last 24 Hours: Intake & Output 11/17/19 11/18/19 11/18/19 22:59 06:59 14:59 Intake Total 3544 2100 240 Output Total 1420 2450 Balance 2124 -350 240 Lab Results Last 24 Hours: Laboratory Results - last 24 hr 11/17/19 11/17/19 11/18/19 Range/Units 14:27 20:26 02:05 WBC 11.57 H (4.0-11.0) K/uL RBC 4.65 (4.50-5.90) M/uL Hgb 9.6 L (13.0-17.0) g/dL Hct 29.8 L (38.0-50.0) % MCV 64.1 L (80.0-98.0) fL MCH 20.6 L (27.0-32.0) pg MCHC 32.2 (31.0-37.0) g/dL RDW Std Deviation 39.7 (28.0-62.0) fl RDW Coeff of Roger 18 H (11.0-15.0) % Plt Count 183 (150-400) K/uL MPV 11.20 (7.40-12.00) fL Neut % (Auto) 73.2 (48.0-80.0) % Lymph % (Auto) 17.3 (16.0-40.0) % [place] % (Auto) 9.4 (0.0-15.0) % Eos % (Auto) 0.0 (0.0-7.0) % Baso % (Auto) 0.1 (0.0-1.5) % Neut # (Auto) 8.5 H (1.4-5.7) K/uL Lymph # (Auto) 2.0 (0.6-2.4) K/uL [place] # (Auto) 1.1 H (0.0-0.8) K/uL Eos # (Auto) 0.0 (0.0-0.7) K/uL Baso # (Auto) 0.0 (0.0-0.1) K/uL Lactate 2.2 H* 2.4 H* (0.20-2.00) mmol/L Sodium (136-148) mmol/L Potassium (3.5-5.1) mmol/L Chloride (98-107) mmol/L Carbon Dioxide (21.0-32.0) mmol/L BUN (7.0-18.0) mg/dL Creatinine (0.8-1.3) mg/dL Est Cr Clr Drug Dosing mL/min Estimated GFR (MDRD) ml/min Glucose (74-106) mg/dL Hemoglobin A1c (4.5-6.2) % Calcium (8.5-10.1) mg/dL Magnesium (1.8-2.4) mg/dL Total Bilirubin (0.2-1.0) mg/dL AST (15-37) IU/L ALT (14-63) IU/L Alkaline Phosphatase (46-116) U/L Total Protein (6.4-8.2) g/dL Albumin (3.4-5.0) g/dL Globulin (2.6-4.0) g/dL Albumin/Globulin Ratio (0.9-1.6) 11/18/19 11/18/19 11/18/19 Range/Units 02:05 02:05 02:05 WBC (4.0-11.0) K/uL RBC (4.50-5.90) M/uL Hgb (13.0-17.0) g/dL Hct (38.0-50.0) % MCV (80.0-98.0) fL MCH (27.0-32.0) pg MCHC (31.0-37.0) g/dL RDW Std Deviation (28.0-62.0) fl RDW Coeff of Roger (11.0-15.0) % Plt Count (150-400) K/uL MPV (7.40-12.00) fL Neut % (Auto) (48.0-80.0) % Lymph % (Auto) (16.0-40.0) % [place] % (Auto) (0.0-15.0) % Eos % (Auto) (0.0-7.0) % Baso % (Auto) (0.0-1.5) % Neut # (Auto) (1.4-5.7) K/uL Lymph # (Auto) (0.6-2.4) K/uL [place] # (Auto) (0.0-0.8) K/uL Eos # (Auto) (0.0-0.7) K/uL Baso # (Auto) (0.0-0.1) K/uL Lactate 1.4 (0.20-2.00) mmol/L Sodium 139 (136-148) mmol/L Potassium 4.5 (3.5-5.1) mmol/L Chloride 105 (98-107) mmol/L Carbon Dioxide 26.5 (21.0-32.0) mmol/L BUN 12 (7.0-18.0) mg/dL Creatinine 0.8 (0.8-1.3) mg/dL Est Cr Clr Drug Dosing 97.00 mL/min Estimated GFR (MDRD) > 60.0 ml/min Glucose 126 H (74-106) mg/dL Hemoglobin A1c 6.2 (4.5-6.2) % Calcium 8.2 L (8.5-10.1) mg/dL Magnesium 1.9 (1.8-2.4) mg/dL Total Bilirubin 0.4 (0.2-1.0) mg/dL AST 27 (15-37) IU/L ALT 23 (14-63) IU/L Alkaline Phosphatase 47 (46-116) U/L Total Protein 6.1 L (6.4-8.2) g/dL Albumin 3.1 L (3.4-5.0) g/dL Globulin 3.0 (2.6-4.0) g/dL Albumin/Globulin Ratio 1.0 (0.9-1.6) Kelvin Results Last 24 Hours: Microbiology 11/16/19 06:55 Aerobic Blood Culture - Preliminary Blood - Venous Anaerobic Blood Culture - Preliminary NO GROWTH AFTER 2 DAYS 11/16/19 07:10 Aerobic Blood Culture - Preliminary Blood - Venous - Lab Draw NO GROWTH AFTER 2 DAYS Anaerobic Blood Culture - Preliminary NO GROWTH AFTER 2 DAYS Med Orders - Current: Current Medications Acetaminophen (Tylenol) 650 mg RECTAL Q6H PRN PRN Reason: Pain Albuterol/Ipratropium (Duoneb 3.0-0.5 Mg/3 Ml) 3 ml NEB Q4HRRT PRN PRN Reason: Shortness of Breath Heparin Sodium (Porcine) (Heparin Sodium) 5,000 units SUBCUT Q8H [facility] Last Admin: 11/18/19 11:12 Dose: 5,000 units Levofloxacin/Dextrose 750 mg/ (Premix) 150 mls @ 100 mls/hr IV Q24H [facility] Last Admin: 11/18/19 09:59 Dose: 100 mls/hr Vancomycin HCl 1.5 gm/ Premix 300 mls @ 200 mls/hr IV Q12H [facility] Last Admin: 11/18/19 09:59 Dose: 200 mls/hr Ibuprofen (Motrin) 800 mg PO Q6H PRN PRN Reason: Pain Last Admin: 11/17/19 21:26 Dose: 800 mg Lorazepam (Ativan) 1 mg IVPUSH Q4H PRN PRN Reason: Anxiety Last Admin: 11/18/19 04:24 Dose: 1 mg Methylprednisolone Sodium Succinate (Solu-Medrol) 40 mg IVPUSH DAILY [facility] Morphine Sulfate (Morphine) 2 mg IVPUSH Q4H PRN PRN Reason: Pain Last Admin: 11/18/19 08:28 Dose: 2 mg Omeprazole (Omeprazole) 20 mg PO BIDAC [facility] Last Admin: 11/18/19 06:48 Dose: 20 mg Sertraline HCl (Zoloft) 100 mg PO DAILY [facility] Last Admin: 11/18/19 08:28 Dose: 100 mg Vancomycin HCl (Pharmacy To Dose - Vancomycin) 1 dose .XX ASDIRECTED [facility] Discontinued Medications Albuterol (Proventil Neb Soln) 5 mg NEB ONETIME ONE Stop: 11/16/19 06:12 Last Admin: 11/16/19 06:18 Dose: 5 mg Albuterol/Ipratropium (Duoneb 3.0-0.5 Mg/3 Ml) 3 ml NEB ONETIME ONE Stop: 11/16/19 05:56 Last Admin: 11/16/19 06:08 Dose: 3 ml Levofloxacin/Dextrose 750 mg/ (Premix) 150 mls @ 100 mls/hr IV ONETIME ONE Stop: 11/16/19 08:45 Last Admin: 11/16/19 07:26 Dose: 100 mls/hr Lactated Ringer's (Ringers, Lactated) 1,000 mls @ 125 mls/hr IV ASDIRECTED [facility] Last Infusion: 11/16/19 17:03 Dose: 200 mls/hr Lactated Ringer's (Ringers, Lactated) 1,000 mls @ 500 mls/hr IV ASDIRECTED [facility] Last Admin: 11/16/19 14:59 Dose: 500 mls/hr Lactated Ringer's (Ringers, Lactated) 1,000 mls @ 100 mls/hr IV ASDIRECTED [facility] Last Admin: 11/17/19 06:20 Dose: 200 mls/hr Magnesium Sulfate 2 gm/ Premix 50 mls @ 25 mls/hr IV ONETIME ONE Stop: 11/17/19 15:31 Last Admin: 11/17/19 14:31 Dose: 25 mls/hr Lactated Ringer's (Ringers, Lactated) 1,000 mls @ 200 mls/hr IV ONETIME ONE Stop: 11/16/19 21:59 Last Admin: 11/17/19 17:03 Dose: 200 mls/hr Influenza Virus Vaccine (Pharmacy To Dose - Influenza Vaccine) 1 each IM ONETIME ONE Stop: 11/16/19 08:40 Influenza Virus Vaccine (Fluzone High-Dose Syringe) 180 mcg IM .ONCE ONE Stop: 11/16/19 08:46 Methylprednisolone Sodium Succinate (Solu-Medrol) 60 mg IVPUSH ONETIME ONE Stop: 11/16/19 06:10 Last Admin: 11/16/19 06:20 Dose: 60 mg Methylprednisolone Sodium Succinate (Solu-Medrol) 40 mg IVPUSH Q12H [facility] Last Admin: 11/18/19 01:17 Dose: 40 mg Morphine Sulfate (Morphine) 4 mg IVPUSH ONETIME ONE Stop: 11/16/19 06:14 Last Admin: 11/16/19 06:22 Dose: 4 mg Ondansetron HCl (Zofran) 4 mg IVPUSH ONETIME ONE Stop: 11/16/19 05:59 Last Admin: 11/16/19 06:08 Dose: 4 mg - Exam General: Alert, Oriented, Cooperative, No Acute Distress Lungs: Clear to Auscultation, Normal Respiratory Effort, Wheezing. No: Crackles Cardiovascular: Regular Rate, Regular Rhythm GI/Abdominal Exam: Normal Bowel Sounds, Soft, Non-Tender, No Distention Extremities: Normal Inspection, No Pedal Edema Skin: Warm, Dry Sepsis Event Note - Evaluation Sepsis Screening Result: No Definite Risk - Focused Exam Vital Signs: Vital Signs Temp Pulse Resp BP Pulse Ox 11/18/19 07:20 36.1 C 83 18 138/73 95 11/18/19 04:15 78 178/78 H 11/18/19 04:00 37.2 C 78 18 185/91 H 96 11/18/19 00:29 36.5 C 79 19 158/77 H 97 Date Exam was Performed: 11/18/19 Time Exam was Performed: 14:16 - Problem List Review Problem List Initiated/Reviewed/Updated: Yes - My Orders Last 24 Hours: My Active Orders 11/17/19 12:41 Acetaminophen [Tylenol] 650 mg RECTAL Q6H PRN Ibuprofen [Motrin] 800 mg PO Q6H PRN 11/17/19 17:28 Discontinue Telemetry Monitoring [Cardiac Monitoring Discontinue] [RC] Click to Edit 11/18/19 08:25 Blood Culture x2 Reflex Set [OM.PC] Stat 11/18/19 08:36 CULTURE BLOOD [BC] Stat 11/18/19 08:46 CULTURE BLOOD [BC] Stat 11/19/19 05:11 CBC WITH AUTO DIFF [HEME] AM COMPREHENSIVE METABOLIC PN,CMP [CHEM] AM - Plan Plan:: A: 1. Acute COPD exacerbation, improving 2. Suspected bacteremia, gram positive cocci in chains 3. Leukocytosis, resolved 4. Elevated lactate, resolved 5. Hypomagnesemia, resolved 6. Chronic pain P: 1. Will continue vancomycin IV for now for suspected Gram + cocci in chains bacteremia. WBC normalized and lactate normalized as well. Will cut down on methylprednisolone to 40 mg IV daily. Continue with Levaquin for now. Ordered repeat blood cultures today. Dispo: likely DC tomorrow, pending blood culture I&S.
[2019-11-18] MEDS ORDERED: Ondansetron 4 MG Tab.DIS PO PRN (15:41)
[2019-11-18] MEDS: Vancomycin 2 GM in Sodium Chloride 0.9% 500 ML IV SCH (23:25)
[2019-11-19] MEDS: Heparin Sodium 5,000 Units/ML Vial SUBCUT SCH ×3 (02:25→19:40)
[2019-11-19] MEDS: Morphine 2 MG/ML Syringe IVPUSH PRN ×4 (04:20→16:48)
[2019-11-19 06:07] LABS: BLOOD UREA NITROGEN,BUN 8 mg/dL (7.0-18.0); CHLORIDE,CL 106 mmol/L (98-107); GLUCOSE RANDOM 86 mg/dL (74-106); SODIUM,NA 141 mmol/L (136-148)
--- NOTE | 2019-11-19 07:55 | PCM.DCSUM1 ---
Discharge Summary - Discharge Data Discharge Disposition: Home, Self-Care 01 Condition: Good - Referral to Home Health Primary Care Physician: PCP None - Discharge Plan Home Medications: Home Meds Fluticasone/Salmeterol [Advair 250-50 Diskus] 1 puff INH DAILY 03/20/19 [History ] Sertraline HCl [Zoloft] 100 mg PO DAILY 03/20/19 [History] Umeclidinium [place] [Incruse Ellipta*] 1 puff INH DAILY 03/20/19 [History] carisoprodoL [Soma] 350 mg PO BID PRN 03/20/19 [History] Diclofenac Sodium [Voltaren] 75 mg PO BIDMEALS PRN #30 tab.cr 04/11/19 [Rx] Morphine Sulfate 15 mg PO BID PRN 11/16/19 [History] Morphine Sulfate [Morphine Sulfate Cr] 60 mg PO BID PRN 11/16/19 [History] Morphine Sulfate [Morphine Sulfate ER] 15 mg PO BID PRN 11/16/19 [History] Omeprazole 20 mg PO BID 11/16/19 [History] Patient Handouts: Chronic Obstructive Pulmonary Disease Exacerbation, Easy-to- Read Referrals: [facility] [Outside] Clement Godfrey MD [Resident] - 11/28/19 2:00 pm - Patient Data Vitals - Most Recent: Last Vital Signs Temp 35.8 C L 11/19/19 07:20 Pulse 75 11/19/19 07:20 Resp 18 11/19/19 07:20 BP 139/74 11/19/19 07:20 Pulse Ox 95 11/19/19 07:20 Weight - Most Recent: 93.8 kg I&O - Last 24 hours: Intake & Output 11/18/19 11/19/19 11/19/19 22:59 06:59 14:59 Intake Total 1120 300 Output Total 1225 Balance -105 300 Lab Results - Last 24 hrs: Laboratory Results - last 24 hr 11/18/19 11/18/19 11/19/19 Range/Units 02:05 21:40 05:00 WBC 7.42 (4.0-11.0) K/uL RBC 5.05 (4.50-5.90) M/uL Hgb 10.2 L (13.0-17.0) g/dL Hct 33.5 L (38.0-50.0) % MCV 66.3 L (80.0-98.0) fL MCH 20.2 L (27.0-32.0) pg MCHC 30.4 L (31.0-37.0) g/dL RDW Std Deviation 42.0 (28.0-62.0) fl RDW Coeff of Roger 18 H (11.0-15.0) % Plt Count 162 (150-400) K/uL Add Manual Diff YES Neutrophils % (Manual) 48 (48.0-80.0) % Band Neutrophils % 2 % Lymphocytes % (Manual) 40 (16.0-40.0) % Monocytes % (Manual) 9 (0.0-15.0) % Eosinophils % (Manual) 1 (0.0-7.0) % Nucleated RBC % 0.0 /100WBC Absolute Seg Neuts 3.6 (1.4-5.7) Band Neutrophils # 0.1 Lymphocytes # (Manual) 3.0 H (0.6-2.4) Monocytes # (Manual) 0.7 (0.0-0.8) Eosinophils # (Manual) 0.1 (0.0-0.7) Nucleated RBCs # 0 K/uL Sodium (136-148) mmol/L Potassium (3.5-5.1) mmol/L Chloride (98-107) mmol/L Carbon Dioxide (21.0-32.0) mmol/L BUN (7.0-18.0) mg/dL Creatinine (0.8-1.3) mg/dL Est Cr Clr Drug Dosing mL/min Estimated GFR (MDRD) ml/min Glucose (74-106) mg/dL Hemoglobin A1c 6.2 (4.5-6.2) % Calcium (8.5-10.1) mg/dL Total Bilirubin (0.2-1.0) mg/dL AST (15-37) IU/L ALT (14-63) IU/L Alkaline Phosphatase (46-116) U/L Total Protein (6.4-8.2) g/dL Albumin (3.4-5.0) g/dL Globulin (2.6-4.0) g/dL Albumin/Globulin Ratio (0.9-1.6) Vancomycin Trough 11.8 H (5.0-10.0) ug/mL 11/19/19 Range/Units 05:00 WBC (4.0-11.0) K/uL RBC (4.50-5.90) M/uL Hgb (13.0-17.0) g/dL Hct (38.0-50.0) % MCV (80.0-98.0) fL MCH (27.0-32.0) pg MCHC (31.0-37.0) g/dL RDW Std Deviation (28.0-62.0) fl RDW Coeff of Roger (11.0-15.0) % Plt Count (150-400) K/uL Add Manual Diff Neutrophils % (Manual) (48.0-80.0) % Band Neutrophils % % Lymphocytes % (Manual) (16.0-40.0) % Monocytes % (Manual) (0.0-15.0) % Eosinophils % (Manual) (0.0-7.0) % Nucleated RBC % /100WBC Absolute Seg Neuts (1.4-5.7) Band Neutrophils # Lymphocytes # (Manual) (0.6-2.4) Monocytes # (Manual) (0.0-0.8) Eosinophils # (Manual) (0.0-0.7) Nucleated RBCs # K/uL Sodium 141 (136-148) mmol/L Potassium 4.0 (3.5-5.1) mmol/L Chloride 106 (98-107) mmol/L Carbon Dioxide 28.0 (21.0-32.0) mmol/L BUN 8 (7.0-18.0) mg/dL Creatinine 0.8 (0.8-1.3) mg/dL Est Cr Clr Drug Dosing 97.00 mL/min Estimated GFR (MDRD) > 60.0 ml/min Glucose 86 (74-106) mg/dL Hemoglobin A1c (4.5-6.2) % Calcium 7.8 L (8.5-10.1) mg/dL Total Bilirubin 0.5 (0.2-1.0) mg/dL AST 20 (15-37) IU/L ALT 26 (14-63) IU/L Alkaline Phosphatase 48 (46-116) U/L Total Protein 6.2 L (6.4-8.2) g/dL Albumin 3.0 L (3.4-5.0) g/dL Globulin 3.2 (2.6-4.0) g/dL Albumin/Globulin Ratio 0.9 (0.9-1.6) Vancomycin Trough (5.0-10.0) ug/mL ROBBY Results - Last 24 hrs: Microbiology 11/16/19 07:10 Aerobic Blood Culture - Preliminary Blood - Venous - Lab Draw NO GROWTH AFTER 3 DAYS Anaerobic Blood Culture - Preliminary NO GROWTH AFTER 3 DAYS 11/16/19 06:55 Aerobic Blood Culture - Preliminary Blood - Venous Anaerobic Blood Culture - Preliminary NO GROWTH AFTER 3 DAYS Med Orders - Current: Current Medications Acetaminophen (Tylenol) 650 mg RECTAL Q6H PRN PRN Reason: Pain Albuterol/Ipratropium (Duoneb 3.0-0.5 Mg/3 Ml) 3 ml NEB Q4HRRT PRN PRN Reason: Shortness of Breath Heparin Sodium (Porcine) (Heparin Sodium) 5,000 units SUBCUT Q8H [facility] Last Admin: 11/19/19 02:25 Dose: 5,000 units Levofloxacin/Dextrose 750 mg/ (Premix) 150 mls @ 100 mls/hr IV Q24H [facility] Last Admin: 11/18/19 09:59 Dose: 100 mls/hr Vancomycin HCl 2 gm/ Sodium (Chloride) 500 mls @ 333.333 mls/hr IV Q12H [facility] Last Admin: 11/18/19 23:25 Dose: 333.333 mls/hr Ibuprofen (Motrin) 800 mg PO Q6H PRN PRN Reason: Pain Last Admin: 11/17/19 21:26 Dose: 800 mg Lorazepam (Ativan) 1 mg IVPUSH Q4H PRN PRN Reason: Anxiety Last Admin: 11/18/19 04:24 Dose: 1 mg Methylprednisolone Sodium Succinate (Solu-Medrol) 40 mg IVPUSH DAILY [facility] Morphine Sulfate (Morphine) 2 mg IVPUSH Q4H PRN PRN Reason: Pain Last Admin: 11/19/19 04:20 Dose: 2 mg Omeprazole (Omeprazole) 20 mg PO BIDAC [facility] Last Admin: 11/18/19 17:28 Dose: 20 mg Ondansetron HCl (Zofran Odt) 4 mg PO Q6H PRN PRN Reason: Nausea Last Admin: 11/18/19 15:50 Dose: 4 mg Sertraline HCl (Zoloft) 100 mg PO DAILY [facility] Last Admin: 11/18/19 08:28 Dose: 100 mg Vancomycin HCl (Pharmacy To Dose - Vancomycin) 1 dose .XX ASDIRECTED [facility] Discontinued Medications Albuterol (Proventil Neb Soln) 5 mg NEB ONETIME ONE Stop: 11/16/19 06:12 Last Admin: 11/16/19 06:18 Dose: 5 mg Albuterol/Ipratropium (Duoneb 3.0-0.5 Mg/3 Ml) 3 ml NEB ONETIME ONE Stop: 11/16/19 05:56 Last Admin: 11/16/19 06:08 Dose: 3 ml Levofloxacin/Dextrose 750 mg/ (Premix) 150 mls @ 100 mls/hr IV ONETIME ONE Stop: 11/16/19 08:45 Last Admin: 11/16/19 07:26 Dose: 100 mls/hr Lactated Ringer's (Ringers, Lactated) 1,000 mls @ 125 mls/hr IV ASDIRECTED [facility] Last Infusion: 11/16/19 17:03 Dose: 200 mls/hr Lactated Ringer's (Ringers, Lactated) 1,000 mls @ 500 mls/hr IV ASDIRECTED [facility] Last Admin: 11/16/19 14:59 Dose: 500 mls/hr Lactated Ringer's (Ringers, Lactated) 1,000 mls @ 100 mls/hr IV ASDIRECTED [facility] Last Admin: 11/17/19 06:20 Dose: 200 mls/hr Vancomycin HCl 1.5 gm/ Premix 300 mls @ 200 mls/hr IV Q12H [facility] Last Admin: 11/18/19 22:33 Dose: Not Given Magnesium Sulfate 2 gm/ Premix 50 mls @ 25 mls/hr IV ONETIME ONE Stop: 11/17/19 15:31 Last Admin: 11/17/19 14:31 Dose: 25 mls/hr Lactated Ringer's (Ringers, Lactated) 1,000 mls @ 200 mls/hr IV ONETIME ONE Stop: 11/16/19 21:59 Last Admin: 11/17/19 17:03 Dose: 200 mls/hr Influenza Virus Vaccine (Pharmacy To Dose - Influenza Vaccine) 1 each IM ONETIME ONE Stop: 11/16/19 08:40 Influenza Virus Vaccine (Fluzone High-Dose Syringe) 180 mcg IM .ONCE ONE Stop: 11/16/19 08:46 Methylprednisolone Sodium Succinate (Solu-Medrol) 60 mg IVPUSH ONETIME ONE Stop: 11/16/19 06:10 Last Admin: 11/16/19 06:20 Dose: 60 mg Methylprednisolone Sodium Succinate (Solu-Medrol) 40 mg IVPUSH Q12H [facility] Last Admin: 11/18/19 01:17 Dose: 40 mg Morphine Sulfate (Morphine) 4 mg IVPUSH ONETIME ONE Stop: 11/16/19 06:14 Last Admin: 11/16/19 06:22 Dose: 4 mg Ondansetron HCl (Zofran) 4 mg IVPUSH ONETIME ONE Stop: 11/16/19 05:59 Last Admin: 11/16/19 06:08 Dose: 4 mg
[2019-11-19] MEDS: Sertraline 100 MG Tab PO SCH (08:02)
[2019-11-19] MEDS: Omeprazole 20 MG Cap.CR PO SCH ×2 (08:02→16:48)
[2019-11-19] MEDS ORDERED: methylPREDNISolone Sodium Succinate 40 MG/1 ML SDV IVPUSH SCH (09:00)
[2019-11-19] MEDS: Vancomycin 2 GM in Sodium Chloride 0.9% 500 ML IV SCH (10:07)
[2019-11-19] MEDS: Levofloxacin/Dextrose 5%-Water 750 MG in Premix Bag 1 BAG IV SCH (10:07)
--- NOTE | 2019-11-19 11:33 | PCM.PN ---
- General Info Date of Service: 11/19/19 Subjective Update: NO acute events overnight. Afebrile. Poor appetite. No vomiting. No chest pain, dyspnea, abdominal pain. - Patient Data Vitals - Most Recent: Last Vital Signs Temp 35.8 C L 11/19/19 07:20 Pulse 75 11/19/19 07:20 Resp 18 11/19/19 07:20 BP 139/74 11/19/19 07:20 Pulse Ox 95 11/19/19 07:20 Weight - Most Recent: 93.8 kg I&O - Last 24 Hours: Intake & Output 11/18/19 11/19/19 11/19/19 22:59 06:59 14:59 Intake Total 1120 300 Output Total 1225 Balance -105 300 Lab Results Last 24 Hours: Laboratory Results - last 24 hr 11/18/19 11/19/19 11/19/19 Range/Units 21:40 05:00 05:00 WBC 7.42 (4.0-11.0) K/uL RBC 5.05 (4.50-5.90) M/uL Hgb 10.2 L (13.0-17.0) g/dL Hct 33.5 L (38.0-50.0) % MCV 66.3 L (80.0-98.0) fL MCH 20.2 L (27.0-32.0) pg MCHC 30.4 L (31.0-37.0) g/dL RDW Std Deviation 42.0 (28.0-62.0) fl RDW Coeff of Roger 18 H (11.0-15.0) % Plt Count 162 (150-400) K/uL Add Manual Diff YES Neutrophils % (Manual) 48 (48.0-80.0) % Band Neutrophils % 2 % Lymphocytes % (Manual) 40 (16.0-40.0) % Monocytes % (Manual) 9 (0.0-15.0) % Eosinophils % (Manual) 1 (0.0-7.0) % Nucleated RBC % 0.0 /100WBC Absolute Seg Neuts 3.6 (1.4-5.7) Band Neutrophils # 0.1 Lymphocytes # (Manual) 3.0 H (0.6-2.4) Monocytes # (Manual) 0.7 (0.0-0.8) Eosinophils # (Manual) 0.1 (0.0-0.7) Nucleated RBCs # 0 K/uL Sodium 141 (136-148) mmol/L Potassium 4.0 (3.5-5.1) mmol/L Chloride 106 (98-107) mmol/L Carbon Dioxide 28.0 (21.0-32.0) mmol/L BUN 8 (7.0-18.0) mg/dL Creatinine 0.8 (0.8-1.3) mg/dL Est Cr Clr Drug Dosing 97.00 mL/min Estimated GFR (MDRD) > 60.0 ml/min Glucose 86 (74-106) mg/dL Calcium 7.8 L (8.5-10.1) mg/dL Total Bilirubin 0.5 (0.2-1.0) mg/dL AST 20 (15-37) IU/L ALT 26 (14-63) IU/L Alkaline Phosphatase 48 (46-116) U/L Total Protein 6.2 L (6.4-8.2) g/dL Albumin 3.0 L (3.4-5.0) g/dL Globulin 3.2 (2.6-4.0) g/dL Albumin/Globulin Ratio 0.9 (0.9-1.6) Vancomycin Trough 11.8 H (5.0-10.0) ug/mL Kelvin Results Last 24 Hours: Microbiology 11/18/19 08:46 Aerobic Blood Culture - Preliminary Blood - Venous - Lab Draw NO GROWTH AFTER 1 DAY Anaerobic Blood Culture - Preliminary NO GROWTH AFTER 1 DAY 11/18/19 08:36 Aerobic Blood Culture - Preliminary Blood - Venous NO GROWTH AFTER 1 DAY Anaerobic Blood Culture - Preliminary NO GROWTH AFTER 1 DAY 11/16/19 07:10 Aerobic Blood Culture - Preliminary Blood - Venous - Lab Draw NO GROWTH AFTER 3 DAYS Anaerobic Blood Culture - Preliminary NO GROWTH AFTER 3 DAYS 11/16/19 06:55 Aerobic Blood Culture - Preliminary Blood - Venous Anaerobic Blood Culture - Preliminary NO GROWTH AFTER 3 DAYS Med Orders - Current: Current Medications Acetaminophen (Tylenol) 650 mg RECTAL Q6H PRN PRN Reason: Pain Albuterol/Ipratropium (Duoneb 3.0-0.5 Mg/3 Ml) 3 ml NEB Q4HRRT PRN PRN Reason: Shortness of Breath Heparin Sodium (Porcine) (Heparin Sodium) 5,000 units SUBCUT Q8H [facility] Last Admin: 11/19/19 10:05 Dose: 5,000 units Levofloxacin/Dextrose 750 mg/ (Premix) 150 mls @ 100 mls/hr IV Q24H [facility] Last Admin: 11/19/19 10:07 Dose: 100 mls/hr Vancomycin HCl 2 gm/ Sodium (Chloride) 500 mls @ 333.333 mls/hr IV Q12H [facility] Last Admin: 11/19/19 10:07 Dose: 333.333 mls/hr Ibuprofen (Motrin) 800 mg PO Q6H PRN PRN Reason: Pain Last Admin: 11/17/19 21:26 Dose: 800 mg Lorazepam (Ativan) 1 mg IVPUSH Q4H PRN PRN Reason: Anxiety Last Admin: 11/18/19 04:24 Dose: 1 mg Methylprednisolone Sodium Succinate (Solu-Medrol) 40 mg IVPUSH DAILY [facility] Last Admin: 11/19/19 08:05 Dose: 40 mg Morphine Sulfate (Morphine) 2 mg IVPUSH Q4H PRN PRN Reason: Pain Last Admin: 11/19/19 08:33 Dose: 2 mg Omeprazole (Omeprazole) 20 mg PO BIDAC [facility] Last Admin: 11/19/19 08:02 Dose: 20 mg Ondansetron HCl (Zofran Odt) 4 mg PO Q6H PRN PRN Reason: Nausea Last Admin: 11/18/19 15:50 Dose: 4 mg Sertraline HCl (Zoloft) 100 mg PO DAILY [facility] Last Admin: 11/19/19 08:02 Dose: 100 mg Vancomycin HCl (Pharmacy To Dose - Vancomycin) 1 dose .XX ASDIRECTED [facility] Discontinued Medications Albuterol (Proventil Neb Soln) 5 mg NEB ONETIME ONE Stop: 11/16/19 06:12 Last Admin: 11/16/19 06:18 Dose: 5 mg Albuterol/Ipratropium (Duoneb 3.0-0.5 Mg/3 Ml) 3 ml NEB ONETIME ONE Stop: 11/16/19 05:56 Last Admin: 11/16/19 06:08 Dose: 3 ml Levofloxacin/Dextrose 750 mg/ (Premix) 150 mls @ 100 mls/hr IV ONETIME ONE Stop: 11/16/19 08:45 Last Admin: 11/16/19 07:26 Dose: 100 mls/hr Lactated Ringer's (Ringers, Lactated) 1,000 mls @ 125 mls/hr IV ASDIRECTED [facility] Last Infusion: 11/16/19 17:03 Dose: 200 mls/hr Lactated Ringer's (Ringers, Lactated) 1,000 mls @ 500 mls/hr IV ASDIRECTED [facility] Last Admin: 11/16/19 14:59 Dose: 500 mls/hr Lactated Ringer's (Ringers, Lactated) 1,000 mls @ 100 mls/hr IV ASDIRECTED [facility] Last Admin: 11/17/19 06:20 Dose: 200 mls/hr Vancomycin HCl 1.5 gm/ Premix 300 mls @ 200 mls/hr IV Q12H [facility] Last Admin: 11/18/19 22:33 Dose: Not Given Magnesium Sulfate 2 gm/ Premix 50 mls @ 25 mls/hr IV ONETIME ONE Stop: 11/17/19 15:31 Last Admin: 11/17/19 14:31 Dose: 25 mls/hr Lactated Ringer's (Ringers, Lactated) 1,000 mls @ 200 mls/hr IV ONETIME ONE Stop: 11/16/19 21:59 Last Admin: 11/17/19 17:03 Dose: 200 mls/hr Influenza Virus Vaccine (Pharmacy To Dose - Influenza Vaccine) 1 each IM ONETIME ONE Stop: 11/16/19 08:40 Influenza Virus Vaccine (Fluzone High-Dose Syringe) 180 mcg IM .ONCE ONE Stop: 11/16/19 08:46 Methylprednisolone Sodium Succinate (Solu-Medrol) 60 mg IVPUSH ONETIME ONE Stop: 11/16/19 06:10 Last Admin: 11/16/19 06:20 Dose: 60 mg Methylprednisolone Sodium Succinate (Solu-Medrol) 40 mg IVPUSH Q12H [facility] Last Admin: 11/18/19 01:17 Dose: 40 mg Morphine Sulfate (Morphine) 4 mg IVPUSH ONETIME ONE Stop: 11/16/19 06:14 Last Admin: 11/16/19 06:22 Dose: 4 mg Ondansetron HCl (Zofran) 4 mg IVPUSH ONETIME ONE Stop: 11/16/19 05:59 Last Admin: 11/16/19 06:08 Dose: 4 mg - Exam General: Alert, Oriented, Cooperative Lungs: Clear to Auscultation, Normal Respiratory Effort, Wheezing. No: Crackles Cardiovascular: Regular Rate, Regular Rhythm GI/Abdominal Exam: Normal Bowel Sounds, Soft, Non-Tender, No Distention Extremities: Normal Inspection, No Pedal Edema Sepsis Event Note - Evaluation Sepsis Screening Result: No Definite Risk - Focused Exam Vital Signs: Vital Signs Temp Pulse Resp BP Pulse Ox 11/19/19 07:20 35.8 C L 75 18 139/74 95 11/19/19 03:00 36.0 C L 71 18 133/76 96 Date Exam was Performed: 11/19/19 Time Exam was Performed: 11:29 - Problem List Review Problem List Initiated/Reviewed/Updated: Yes - My Orders Last 24 Hours: My Active Orders 11/18/19 15:41 Ondansetron [Zofran ODT] 4 mg PO Q6H PRN - Plan Plan:: A: 1. Acute COPD exacerbation, improving 2. Suspected bacteremia, gram positive cocci in chains 3. Leukocytosis, resolved P: 1. Pending I&S for blood culture. Continue with vancomycin and levaquin for now.
--- NOTE | 2019-11-19 17:28 | PCM.DCSUM1 ---
<Clement Godfrey - Last Filed: 11/20/19 11:22> Discharge Summary - Hospital Course Free Text/Narrative:: 69 y/o male with history of COPD who presented to the ER complaining of worsening shortness of breath. Admitted for acute COPD exacerbation. Started on Levaquin and methylprednisolone. Hydrated with NS. WBC trended down with antibiotics. 1 of 4 vials blood culture were positive and he was started on Vancomycin. Repeat blood cultures were negative. Thought to be a contaminant. He was discharged home on Levaquin and prednisone. Instructed to follow-up with his PCP. - Discharge Data Discharge Date: 11/19/19 Discharge Disposition: Home, Self-Care 01 Condition: Good - Referral to Home Health Primary Care Physician: PCP None - Patient Instructions Diet: Regular Diet as Tolerated Activity: As Tolerated Notify Provider of: Fever, Increased Pain, Swelling and Redness, Nausea and/or Vomiting - Discharge Plan Prescriptions/Med Rec: Albuterol [Ventolin HFA] 1 puff INH Q4H PRN #1 inhaler PRN Reason: Wheezing Levofloxacin [Levaquin] 750 mg PO DAILY 5 Days #5 tablet predniSONE [Prednisone] 20 mg PO DAILY 5 Days #5 tablet Home Medications: Home Meds Fluticasone/Salmeterol [Advair 250-50 Diskus] 1 puff INH DAILY 03/20/19 [History ] Sertraline HCl [Zoloft] 100 mg PO DAILY 03/20/19 [History] Umeclidinium [place] [Incruse Ellipta*] 1 puff INH DAILY 03/20/19 [History] carisoprodoL [Soma] 350 mg PO BID PRN 03/20/19 [History] Diclofenac Sodium [Voltaren] 75 mg PO BIDMEALS PRN #30 tab.cr 04/11/19 [Rx] Morphine Sulfate 15 mg PO BID PRN 11/16/19 [History] Morphine Sulfate [Morphine Sulfate Cr] 60 mg PO BID PRN 11/16/19 [History] Morphine Sulfate [Morphine Sulfate ER] 15 mg PO BID PRN 11/16/19 [History] Omeprazole 20 mg PO BID 11/16/19 [History] Albuterol [Ventolin HFA] 1 puff INH Q4H PRN #1 inhaler 11/19/19 [Rx] Levofloxacin [Levaquin] 750 mg PO DAILY 5 Days #5 tablet 11/19/19 [Rx] predniSONE [Prednisone] 20 mg PO DAILY 5 Days #5 tablet 11/19/19 [Rx] Patient Handouts: Chronic Obstructive Pulmonary Disease Exacerbation, Easy-to- Read, Albuterol inhalation aerosol, Levofloxacin tablets, Prednisone tablets Referrals: [facility] [Outside] Clement Godfrey MD [Resident] - 11/28/19 2:00 pm - Discharge Summary/Plan Comment DC Time >30 min.: No - Patient Data Vitals - Most Recent: Last Vital Signs Temp 35.6 C L 11/19/19 16:00 Pulse 92 11/19/19 16:00 Resp 16 11/19/19 16:00 BP 122/77 11/19/19 16:00 Pulse Ox 92 L 11/19/19 16:00 Weight - Most Recent: 93.8 kg I&O - Last 24 hours: Intake & Output 11/19/19 11/19/19 11/19/19 06:59 14:59 22:59 Intake Total 300 1400 Output Total 600 Balance 300 800 Lab Results - Last 24 hrs: Laboratory Results - last 24 hr 11/16/19 11/18/19 11/19/19 Range/Units 07:10 21:40 05:00 WBC 7.42 (4.0-11.0) K/uL RBC 5.05 (4.50-5.90) M/uL Hgb 10.2 L (13.0-17.0) g/dL Hct 33.5 L (38.0-50.0) % MCV 66.3 L (80.0-98.0) fL MCH 20.2 L (27.0-32.0) pg MCHC 30.4 L (31.0-37.0) g/dL RDW Std Deviation 42.0 (28.0-62.0) fl RDW Coeff of Roger 18 H (11.0-15.0) % Plt Count 162 (150-400) K/uL Add Manual Diff YES Neutrophils % (Manual) 48 (48.0-80.0) % Band Neutrophils % 2 % Lymphocytes % (Manual) 40 (16.0-40.0) % Monocytes % (Manual) 9 (0.0-15.0) % Eosinophils % (Manual) 1 (0.0-7.0) % Nucleated RBC % 0.0 /100WBC Absolute Seg Neuts 3.6 (1.4-5.7) Band Neutrophils # 0.1 Lymphocytes # (Manual) 3.0 H (0.6-2.4) Monocytes # (Manual) 0.7 (0.0-0.8) Eosinophils # (Manual) 0.1 (0.0-0.7) Nucleated RBCs # 0 K/uL Lactate 3.8 H* (0.20-2.00) mmol/L Sodium (136-148) mmol/L Potassium (3.5-5.1) mmol/L Chloride (98-107) mmol/L Carbon Dioxide (21.0-32.0) mmol/L BUN (7.0-18.0) mg/dL Creatinine (0.8-1.3) mg/dL Est Cr Clr Drug Dosing mL/min Estimated GFR (MDRD) ml/min Glucose (74-106) mg/dL Calcium (8.5-10.1) mg/dL Total Bilirubin (0.2-1.0) mg/dL AST (15-37) IU/L ALT (14-63) IU/L Alkaline Phosphatase (46-116) U/L Total Protein (6.4-8.2) g/dL Albumin (3.4-5.0) g/dL Globulin (2.6-4.0) g/dL Albumin/Globulin Ratio (0.9-1.6) Vancomycin Trough 11.8 H (5.0-10.0) ug/mL 11/19/19 Range/Units 05:00 WBC (4.0-11.0) K/uL RBC (4.50-5.90) M/uL Hgb (13.0-17.0) g/dL Hct (38.0-50.0) % MCV (80.0-98.0) fL MCH (27.0-32.0) pg MCHC (31.0-37.0) g/dL RDW Std Deviation (28.0-62.0) fl RDW Coeff of Roger (11.0-15.0) % Plt Count (150-400) K/uL Add Manual Diff Neutrophils % (Manual) (48.0-80.0) % Band Neutrophils % % Lymphocytes % (Manual) (16.0-40.0) % Monocytes % (Manual) (0.0-15.0) % Eosinophils % (Manual) (0.0-7.0) % Nucleated RBC % /100WBC Absolute Seg Neuts (1.4-5.7) Band Neutrophils # Lymphocytes # (Manual) (0.6-2.4) Monocytes # (Manual) (0.0-0.8) Eosinophils # (Manual) (0.0-0.7) Nucleated RBCs # K/uL Lactate (0.20-2.00) mmol/L Sodium 141 (136-148) mmol/L Potassium 4.0 (3.5-5.1) mmol/L Chloride 106 (98-107) mmol/L Carbon Dioxide 28.0 (21.0-32.0) mmol/L BUN 8 (7.0-18.0) mg/dL Creatinine 0.8 (0.8-1.3) mg/dL Est Cr Clr Drug Dosing 97.00 mL/min Estimated GFR (MDRD) > 60.0 ml/min Glucose 86 (74-106) mg/dL Calcium 7.8 L (8.5-10.1) mg/dL Total Bilirubin 0.5 (0.2-1.0) mg/dL AST 20 (15-37) IU/L ALT 26 (14-63) IU/L Alkaline Phosphatase 48 (46-116) U/L Total Protein 6.2 L (6.4-8.2) g/dL Albumin 3.0 L (3.4-5.0) g/dL Globulin 3.2 (2.6-4.0) g/dL Albumin/Globulin Ratio 0.9 (0.9-1.6) Vancomycin Trough (5.0-10.0) ug/mL ROBBY Results - Last 24 hrs: Microbiology 11/16/19 06:55 Aerobic Blood Culture - Preliminary Blood - Venous Anaerobic Blood Culture - Preliminary NO GROWTH AFTER 3 DAYS 11/16/19 07:10 Aerobic Blood Culture - Preliminary Blood - Venous - Lab Draw NO GROWTH AFTER 3 DAYS Anaerobic Blood Culture - Preliminary NO GROWTH AFTER 3 DAYS 11/18/19 08:46 Aerobic Blood Culture - Preliminary Blood - Venous - Lab Draw NO GROWTH AFTER 1 DAY Anaerobic Blood Culture - Preliminary NO GROWTH AFTER 1 DAY 11/18/19 08:36 Aerobic Blood Culture - Preliminary Blood - Venous NO GROWTH AFTER 1 DAY Anaerobic Blood Culture - Preliminary NO GROWTH AFTER 1 DAY Med Orders - Current: Current Medications Acetaminophen (Tylenol) 650 mg RECTAL Q6H PRN PRN Reason: Pain Albuterol/Ipratropium (Duoneb 3.0-0.5 Mg/3 Ml) 3 ml NEB Q4HRRT PRN PRN Reason: Shortness of Breath Heparin Sodium (Porcine) (Heparin Sodium) 5,000 units SUBCUT Q8H [facility] Last Admin: 11/19/19 10:05 Dose: 5,000 units Levofloxacin/Dextrose 750 mg/ (Premix) 150 mls @ 100 mls/hr IV Q24H [facility] Last Admin: 11/19/19 10:07 Dose: 100 mls/hr Vancomycin HCl 2 gm/ Sodium (Chloride) 500 mls @ 333.333 mls/hr IV Q12H [facility] Last Admin: 11/19/19 10:07 Dose: 333.333 mls/hr Ibuprofen (Motrin) 800 mg PO Q6H PRN PRN Reason: Pain Last Admin: 11/17/19 21:26 Dose: 800 mg Lorazepam (Ativan) 1 mg IVPUSH Q4H PRN PRN Reason: Anxiety Last Admin: 11/18/19 04:24 Dose: 1 mg Methylprednisolone Sodium Succinate (Solu-Medrol) 40 mg IVPUSH DAILY [facility] Last Admin: 11/19/19 08:05 Dose: 40 mg Morphine Sulfate (Morphine) 2 mg IVPUSH Q4H PRN PRN Reason: Pain Last Admin: 11/19/19 16:48 Dose: 2 mg Omeprazole (Omeprazole) 20 mg PO BIDAC [facility] Last Admin: 11/19/19 16:48 Dose: 20 mg Ondansetron HCl (Zofran Odt) 4 mg PO Q6H PRN PRN Reason: Nausea Last Admin: 11/18/19 15:50 Dose: 4 mg Sertraline HCl (Zoloft) 100 mg PO DAILY [facility] Last Admin: 11/19/19 08:02 Dose: 100 mg Vancomycin HCl (Pharmacy To Dose - Vancomycin) 1 dose .XX ASDIRECTED [facility] Discontinued Medications Albuterol (Proventil Neb Soln) 5 mg NEB ONETIME ONE Stop: 11/16/19 06:12 Last Admin: 11/16/19 06:18 Dose: 5 mg Albuterol/Ipratropium (Duoneb 3.0-0.5 Mg/3 Ml) 3 ml NEB ONETIME ONE Stop: 11/16/19 05:56 Last Admin: 11/16/19 06:08 Dose: 3 ml Levofloxacin/Dextrose 750 mg/ (Premix) 150 mls @ 100 mls/hr IV ONETIME ONE Stop: 11/16/19 08:45 Last Admin: 11/16/19 07:26 Dose: 100 mls/hr Lactated Ringer's (Ringers, Lactated) 1,000 mls @ 125 mls/hr IV ASDIRECTED [facility] Last Infusion: 11/16/19 17:03 Dose: 200 mls/hr Lactated Ringer's (Ringers, Lactated) 1,000 mls @ 500 mls/hr IV ASDIRECTED [facility] Last Admin: 11/16/19 14:59 Dose: 500 mls/hr Lactated Ringer's (Ringers, Lactated) 1,000 mls @ 100 mls/hr IV ASDIRECTED [facility] Last Admin: 11/17/19 06:20 Dose: 200 mls/hr Vancomycin HCl 1.5 gm/ Premix 300 mls @ 200 mls/hr IV Q12H [facility] Last Admin: 11/18/19 22:33 Dose: Not Given Magnesium Sulfate 2 gm/ Premix 50 mls @ 25 mls/hr IV ONETIME ONE Stop: 11/17/19 15:31 Last Admin: 11/17/19 14:31 Dose: 25 mls/hr Lactated Ringer's (Ringers, Lactated) 1,000 mls @ 200 mls/hr IV ONETIME ONE Stop: 11/16/19 21:59 Last Admin: 11/17/19 17:03 Dose: 200 mls/hr Influenza Virus Vaccine (Pharmacy To Dose - Influenza Vaccine) 1 each IM ONETIME ONE Stop: 11/16/19 08:40 Influenza Virus Vaccine (Fluzone High-Dose Syringe) 180 mcg IM .ONCE ONE Stop: 11/16/19 08:46 Methylprednisolone Sodium Succinate (Solu-Medrol) 60 mg IVPUSH ONETIME ONE Stop: 11/16/19 06:10 Last Admin: 11/16/19 06:20 Dose: 60 mg Methylprednisolone Sodium Succinate (Solu-Medrol) 40 mg IVPUSH Q12H [facility] Last Admin: 11/18/19 01:17 Dose: 40 mg Morphine Sulfate (Morphine) 4 mg IVPUSH ONETIME ONE Stop: 11/16/19 06:14 Last Admin: 11/16/19 06:22 Dose: 4 mg Ondansetron HCl (Zofran) 4 mg IVPUSH ONETIME ONE Stop: 11/16/19 05:59 Last Admin: 11/16/19 06:08 Dose: 4 mg <Minh Horne J - Last Filed: 11/21/19 10:22> Discharge Summary - Referral to Home Health Primary Care Physician: PCP None - Patient Data Vitals - Most Recent: Last Vital Signs Temp 35.6 C L 11/19/19 16:00 Pulse 92 11/19/19 16:00 Resp 16 11/19/19 16:00 BP 122/77 11/19/19 16:00 Pulse Ox 92 L 11/19/19 16:00 ROBBY Results - Last 24 hrs: Microbiology 11/18/19 08:46 Aerobic Blood Culture - Preliminary Blood - Venous - Lab Draw NO GROWTH AFTER 3 DAYS Anaerobic Blood Culture - Preliminary NO GROWTH AFTER 3 DAYS 11/18/19 08:36 Aerobic Blood Culture - Preliminary Blood - Venous NO GROWTH AFTER 3 DAYS Anaerobic Blood Culture - Preliminary NO GROWTH AFTER 3 DAYS 11/16/19 07:10 Aerobic Blood Culture - Final Blood - Venous - Lab Draw NO GROWTH AFTER 5 DAYS Anaerobic Blood Culture - Final NO GROWTH AFTER 5 DAYS 11/16/19 06:55 Aerobic Blood Culture - Final Blood - Venous Streptococcus Mitis/Oralis Anaerobic Blood Culture - Final NO GROWTH AFTER 5 DAYS Med Orders - Current: Current Medications Discontinued Medications Acetaminophen (Tylenol) 650 mg RECTAL Q6H PRN PRN Reason: Pain Albuterol (Proventil Neb Soln) 5 mg NEB ONETIME ONE Stop: 11/16/19 06:12 Last Admin: 11/16/19 06:18 Dose: 5 mg Albuterol/Ipratropium (Duoneb 3.0-0.5 Mg/3 Ml) 3 ml NEB ONETIME ONE Stop: 11/16/19 05:56 Last Admin: 11/16/19 06:08 Dose: 3 ml Albuterol/Ipratropium (Duoneb 3.0-0.5 Mg/3 Ml) 3 ml NEB Q4HRRT PRN PRN Reason: Shortness of Breath Heparin Sodium (Porcine) (Heparin Sodium) 5,000 units SUBCUT Q8H [facility] Last Admin: 11/19/19 19:40 Dose: Not Given Levofloxacin/Dextrose 750 mg/ (Premix) 150 mls @ 100 mls/hr IV ONETIME ONE Stop: 11/16/19 08:45 Last Admin: 11/16/19 07:26 Dose: 100 mls/hr Lactated Ringer's (Ringers, Lactated) 1,000 mls @ 125 mls/hr IV ASDIRECTED [facility] Last Infusion: 11/16/19 17:03 Dose: 200 mls/hr Levofloxacin/Dextrose 750 mg/ (Premix) 150 mls @ 100 mls/hr IV Q24H [facility] Last Admin: 11/19/19 10:07 Dose: 100 mls/hr Lactated Ringer's (Ringers, Lactated) 1,000 mls @ 500 mls/hr IV ASDIRECTED [facility] Last Admin: 11/16/19 14:59 Dose: 500 mls/hr Lactated Ringer's (Ringers, Lactated) 1,000 mls @ 100 mls/hr IV ASDIRECTED [facility] Last Admin: 11/17/19 06:20 Dose: 200 mls/hr Vancomycin HCl 1.5 gm/ Premix 300 mls @ 200 mls/hr IV Q12H [facility] Last Admin: 11/18/19 22:33 Dose: Not Given Magnesium Sulfate 2 gm/ Premix 50 mls @ 25 mls/hr IV ONETIME ONE Stop: 11/17/19 15:31 Last Admin: 11/17/19 14:31 Dose: 25 mls/hr Lactated Ringer's (Ringers, Lactated) 1,000 mls @ 200 mls/hr IV ONETIME ONE Stop: 11/16/19 21:59 Last Admin: 11/17/19 17:03 Dose: 200 mls/hr Vancomycin HCl 2 gm/ Sodium (Chloride) 500 mls @ 333.333 mls/hr IV Q12H [facility] Last Admin: 11/19/19 10:07 Dose: 333.333 mls/hr Ibuprofen (Motrin) 800 mg PO Q6H PRN PRN Reason: Pain Last Admin: 11/17/19 21:26 Dose: 800 mg Influenza Virus Vaccine (Pharmacy To Dose - Influenza Vaccine) 1 each IM ONETIME ONE Stop: 11/16/19 08:40 Influenza Virus Vaccine (Fluzone High-Dose Syringe) 180 mcg IM .ONCE ONE Stop: 11/19/19 17:46 Last Admin: 11/19/19 17:50 Dose: 180 mcg Lorazepam (Ativan) 1 mg IVPUSH Q4H PRN PRN Reason: Anxiety Last Admin: 11/18/19 04:24 Dose: 1 mg Methylprednisolone Sodium Succinate (Solu-Medrol) 60 mg IVPUSH ONETIME ONE Stop: 11/16/19 06:10 Last Admin: 11/16/19 06:20 Dose: 60 mg Methylprednisolone Sodium Succinate (Solu-Medrol) 40 mg IVPUSH Q12H [facility] Last Admin: 11/18/19 01:17 Dose: 40 mg Methylprednisolone Sodium Succinate (Solu-Medrol) 40 mg IVPUSH DAILY [facility] Last Admin: 11/19/19 08:05 Dose: 40 mg Morphine Sulfate (Morphine) 4 mg IVPUSH ONETIME ONE Stop: 11/16/19 06:14 Last Admin: 11/16/19 06:22 Dose: 4 mg Morphine Sulfate (Morphine) 2 mg IVPUSH Q4H PRN PRN Reason: Pain Last Admin: 11/19/19 16:48 Dose: 2 mg Omeprazole (Omeprazole) 20 mg PO BIDAC [facility] Last Admin: 11/19/19 16:48 Dose: 20 mg Ondansetron HCl (Zofran) 4 mg IVPUSH ONETIME ONE Stop: 11/16/19 05:59 Last Admin: 11/16/19 06:08 Dose: 4 mg Ondansetron HCl (Zofran Odt) 4 mg PO Q6H PRN PRN Reason: Nausea Last Admin: 11/18/19 15:50 Dose: 4 mg Pneumococcal 13-Valent Conj Vacc (Prevnar 13) 0.5 ml IM .ONCE ONE Stop: 11/19/19 17:46 Last Admin: 11/19/19 17:57 Dose: 0.5 ml Sertraline HCl (Zoloft) 100 mg PO DAILY [facility] Last Admin: 11/19/19 08:02 Dose: 100 mg Vancomycin HCl (Pharmacy To Dose - Vancomycin) 1 dose .XX ASDIRECTED [facility] - Free Text/Narrative Note: I have seen and evaluated the patient with the resident. I have discussed the findings and treatment plan with the resident. I agree with the assessment and plan as outlined in the following note.
[2019-11-19] MEDS ORDERED: Pneumococcal 13-Valent Conjugate Vaccine 0.5 ML Syringe IM ONE (17:45)
== END 2019-11-19 18:30 | disposition home or self-care (01) | DRG 191 ==
LOC: MW.ED 05:52 → MW.MS 07:47 → OBSVTOIN 09:55 → INTOOBSV 09:55 → OBSVTOIN 11-17 09:55 → MW.MS 11-17 15:14
PROVIDERS: ADMIT Student in an Organized Health Care Education/Training Program; ATTEND Student in an Organized Health Care Education/Training Program
PROC: 3E02340 Introduction of Influenza Vaccine into Muscle, Percutaneous Approach (ICD-10-PCS; principal; 2019-11-19)
PROC: 3E0234Z Introduction of Serum, Toxoid and Vaccine into Muscle, Percutaneous Approach (ICD-10-PCS; 2019-11-19)
DX: J44.1 Chronic obstructive pulmonary disease with (acute) exacerbation (principal); R78.81 Bacteremia; I25.10 Atherosclerotic heart disease of native coronary artery without angina pectoris; R07.9 Chest pain, unspecified; R74.0 Nonspecific elevation of levels of transaminase and lactic acid dehydrogenase [LDH]; E83.42 Hypomagnesemia; D72.829 Elevated white blood cell count, unspecified; R91.1 Solitary pulmonary nodule; G89.29 Other chronic pain; M54.9 Dorsalgia, unspecified; M54.2 Cervicalgia; Z87.01 Personal history of pneumonia (recurrent); Z88.0 Allergy status to penicillin; Z88.5 Allergy status to narcotic agent; Z79.891 Long term (current) use of opiate analgesic; Z79.899 Other long term (current) drug therapy; I25.2 Old myocardial infarction; Z99.81 Dependence on supplemental oxygen; Z98.890 Other specified postprocedural states; Z23 Encounter for immunization; Z79.51 Long term (current) use of inhaled steroids
CPT/HCPCS: 36415 ×2; 71045; 80048; 80053; 83605 ×5; 83690; 83735; 83880; 84100; 84484 ×4; 85025 ×2; 85379; 85610; 87040 ×2; 93005 ×2; 96365; 96375; 99285; A9270 ×3; J1956; J2060 ×2; J2270 ×6; J2405; J2920 ×3; J7120 ×6; 80202; 83036; 87077; 87186; 90662; 90670; 96361; 96376; 99284; G0008; G0009; G0378; J1644; J3370; J3475; J7040; J7620-GY

== ENCOUNTER 2020-05-09 06:55 | Emergency (ER) | payer MEDICARE ==
[2020-05-09] MEDS ORDERED: Lactated Ringers 1,000 ML IV ONE (07:18)
[2020-05-09] MEDS ORDERED: Sodium Chloride 0.9% 10 ML Syringe FLUSH PRN (07:18)
[2020-05-09] MEDS ORDERED: Sodium Chloride 0.9% 2.5 ML Syringe FLUSH PRN (07:18)
[2020-05-09] MEDS ORDERED: cloNIDine 0.1 MG Tab PO ONE ×2 (07:28→08:14)
[2020-05-09] MEDS ORDERED: OLANZapine 10 MG in Water For Injection, Sterile 2.1 ML IM ONE (07:28)
[2020-05-09 07:40] LABS: BLOOD UREA NITROGEN,BUN 7 mg/dL (7.0-18.0); CARBON DIOXIDE,CO2 21.8 mmol/L (21.0-32.0); CHLORIDE,CL 99 mmol/L (98-107); GLUCOSE RANDOM 147 mg/dL (74-106); SODIUM,NA 134 mmol/L (136-148)
--- NOTE | 2020-05-09 08:03 | CR ---
INDICATION: Dyspnea. COMPARISON: 16 November 2019. TECHNIQUE: One view. IMPRESSION: No acute cardiopulmonary disease. No meaningful change. Chronic calcified granuloma right base. Pulmonary vascularity and cardiomediastinal silhouette are normal. Dictated by Tal Rosado MD @ May 09 2020 8:02AM Signed by Dr. Tal Rosado @ May 09 2020 8:02AM
--- NOTE | 2020-05-09 08:18 | EDM.PDOC ---
ED HPI GENERAL MEDICAL PROBLEM - General Chief Complaint: Respiratory Problem Stated Complaint: SHORTNESS OF BREATH Time Seen by Provider: 05/09/20 07:11 Source of Information: Reports: Patient, Old Records History Limitations: Reports: No Limitations - History of Present Illness INITIAL COMMENTS - FREE TEXT/NARRATIVE: 69-year-old male with a past medical history of chronic back pain, COPD, myocardial infarction, borderline diabetes mellitus, colon cancer and recent admission, chronic oral opioid therapy presenting with multiple complaints. Patient reports a 2-day history of chills, diffuse body aches, dyspnea, nausea, nonbloody emesis malaise, and a 3-week history of a nonproductive cough. Patient states that he ran out of his prescribed oral morphine about 2 days ago. Denies fever, chest discomfort, hemoptysis, hematemesis, bloody stools, headache, neck pain, recent sick contacts. ROS: A 10-point review of systems was negative, except as noted in the HPI (or in the ROS section of this note). Past medical history: Reviewed, no additional pertinent history. Surgical history: Reviewed in system, no additional pertinent history. Social history: Reviewed in system, no additional pertinent history. Family history: Reviewed in system, no additional pertinent history. PHYSICAL EXAM Vital signs reviewed. Nursing notes reviewed. Constitutional: Awake, alert, appears uncomfortable Head: Normocephalic, atraumatic. Eyes: EOMI, conjunctiva normal, no discharge, no scleral icterus. Ears, Nose, Throat: External ears and nose normal, moist oral mucosa. Cardiovascular: Tachycardic, 2+ radial pulses bilaterally, capillary refill less than 2 seconds. Pulmonary: normal work of breathing, no accessory muscle use. CTA BL Abdomen/GI: Soft, nontender, nondistended, no guarding or rigidity, no masses. Musculoskeletal: No deformities. Integumentary: Appropriate color for ethnicity, warm, dry, no pallor or jaundice, no rash. Neurologic: Alert, answering questions appropriately, normal speech, no facial droop, moving all extremities well. Psychiatric: Restless, appropriate mood and affect, normal thought process. - Related Data Allergies Allergy/AdvReac Type Severity Reaction Status Date / Time codeine Allergy Dizziness Verified 05/09/20 07:19 Penicillins Allergy Rash Verified 05/09/20 07:19 Home Meds: Home Meds Umeclidinium [place] [Incruse Ellipta*] 1 puff INH DAILY 03/20/19 [History] carisoprodoL [Soma] 350 mg PO BID PRN 03/20/19 [History] Morphine Sulfate 15 mg PO BID PRN 11/16/19 [History] Morphine Sulfate [Morphine Sulfate Cr] 60 mg PO BID PRN 11/16/19 [History] Morphine Sulfate [Morphine Sulfate ER] 15 mg PO BID PRN 11/16/19 [History] Omeprazole 20 mg PO BID 11/16/19 [History] Albuterol [Ventolin HFA] 1 puff INH Q4H PRN #1 inhaler 11/19/19 [Rx] Morphine Sulfate 15 mg PO BID #3 tablet 05/09/20 [Rx] Morphine Sulfate [Morphine Sulfate ER] 60 mg PO BID #3 cap.er.pel 05/09/20 [Rx] Past Medical History HEENT History: Reports: Impaired Vision Cardiovascular History: Reports: Hypertension, [place] Respiratory History: Reports: COPD, Other (See Below) Other Respiratory History: O2 at home Gastrointestinal History: Reports: None Genitourinary History: Reports: None Musculoskeletal History: Reports: Back Pain, Chronic Neurological History: Reports: None Psychiatric History: Reports: None Endocrine/Metabolic History: Reports: None 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 Hide Shaker: None Hematologic History: Reports: None Immunologic History: Reports: None Oncologic (Cancer) History: Reports: None Dermatologic History: Reports: None - Infectious Disease History Infectious Disease History: Reports: None - Past Surgical History Head Surgeries/Procedures: Reports: None HEENT Surgical History: Reports: None Cardiovascular Surgical History: Reports: None Respiratory Surgical History: Reports: None GI Surgical History: Reports: Hernia, Abdominal Male Surgical History: Reports: None Endocrine Surgical History: Reports: None Neurological Surgical History: Reports: None Musculoskeletal Surgical History: Reports: None Oncologic Surgical History: Reports: None Dermatological Surgical History: Reports: None Social & Family History - Family History Family Medical History: Noncontributory - Tobacco Use Smoking Status *Q: Never Smoker Second Hand Smoke Exposure: No - Caffeine Use Caffeine Use: Reports: Soda - Recreational Drug Use Recreational Drug Use: No ED ROS GENERAL - Review of Systems Review Of Systems: See Below ED EXAM, GENERAL - Physical Exam Exam: See Below EKG INTERPRETATION EKG Interpretation Comments: 12-Lead ECG Interpretation Acquired: 7:00 AM Rhythm: Sinus tachycardia Rate: 111 bpm Mcgehee: Left axis deviation Intervals: Normal Ectopy: Lone PVC Ischemic Changes: Q waves noted in leads II, III, aVF, V3-6 RV Strain: No obvious RV strain pattern. Interpretation: Old myocardial infarction, sinus tachycardia, no evidence of acute ischemia Course - Vital Signs Text/Narrative:: Differential diagnosis includes but is not limited to: Opioid or drug withdrawal, alcohol withdrawal, electrolyte disturbance, arrhythmia, anemia, acute coronary syndrome, pulmonary embolism, following depletion, thyroid disease, anxiety state, etc. Labs show mild leukocytosis, mild microcytic anemia. Lactate is 2.6. Electrol ytes look reassuring. Negative troponin, normal TSH. Urine drug screen positive for opioids. Presentation seems consistent with acute opioid withdrawal syndrome. Given 1 L of lactated Ringer's. Initially attempted treatment with intramuscular olanzapine and oral clonidine. Patient remained symptomatic so he was given intravenous morphine after discussion with our inpatient pharmacist. [place] much better afterwards. We will plan to discharge home with a short course of his extended release and immediate release morphine sulfate until he can contact his primary medical clinic on Monday. I counseled him that this is a one-time option and that he needed to be much more vigilant about securing his medication refills in the future to prevent entering into opioid withdrawal. Plan: Patient is stable to discharge home with outpatient primary care follow- up. Strict emergency department return precautions were provided, patient indicated understanding. All questions were answered prior to departure. Discharged in good condition. Last Recorded V/S: Last Vital Signs Temp 36.3 C 05/09/20 07:10 Pulse 97 05/09/20 09:20 Resp 17 05/09/20 09:02 BP 122/73 05/09/20 09:02 Pulse Ox 96 05/09/20 09:02 - Orders/Labs/Meds Orders: Active Orders 24 hr Category Date Time Status Cardiac Monitoring [RC] . DIRECTED Care 05/09/20 07:18 Active EKG Documentation Completion [RC] STAT Care 05/09/20 07:18 Active Pulse Oximetry [RC] ASDIRECTED Care 05/09/20 07:18 Active Sodium Chloride 0.9% [Saline Flush] Med 05/09/20 07:18 Active 10 ml FLUSH ASDIRECTED PRN Sodium Chloride 0.9% [Saline Flush] Med 05/09/20 07:18 Active 2.5 ml FLUSH ASDIRECTED PRN Saline Lock Insert [OM.PC] Stat Oth 05/09/20 07:18 Ordered Medication Orders Sodium Chloride (Saline Flush) 10 ml FLUSH ASDIRECTED PRN PRN Reason: Keep Vein Open Last Admin: 05/09/20 07:28 Dose: 10 ml Documented by: ZACH Sodium Chloride (Saline Flush) 2.5 ml FLUSH ASDIRECTED PRN PRN Reason: Keep Vein Open Last Admin: 05/09/20 07:28 Dose: 2.5 ml Documented by: ZACH Labs: Laboratory Tests 05/09/20 05/09/20 05/09/20 Range/Units 07:00 07:00 07:00 WBC 11.14 H (4.0-11.0) K/uL RBC 6.21 H (4.50-5.90) M/uL Hgb 12.5 L (13.0-17.0) g/dL Hct 40.9 (38.0-50.0) % MCV 65.9 L (80.0-98.0) fL MCH 20.1 L (27.0-32.0) pg MCHC 30.6 L (31.0-37.0) g/dL RDW Std Deviation 42.2 (28.0-62.0) fl RDW Coeff of Roger 18 H (11.0-15.0) % Plt Count 284 (150-400) K/uL Neut % (Auto) 72.0 (48.0-80.0) % Lymph % (Auto) 22.4 (16.0-40.0) % [place] % (Auto) 5.1 (0.0-15.0) % Eos % (Auto) 0.2 (0.0-7.0) % Baso % (Auto) 0.3 (0.0-1.5) % Neut # (Auto) 8.0 H (1.4-5.7) K/uL Lymph # (Auto) 2.5 H (0.6-2.4) K/uL [place] # (Auto) 0.6 (0.0-0.8) K/uL Eos # (Auto) 0.0 (0.0-0.7) K/uL Baso # (Auto) 0.0 (0.0-0.1) K/uL Nucleated RBC % 0.0 /100WBC Nucleated RBCs # 0 K/uL Lactate 2.6 H* (0.20-2.00) mmol/L Sodium 134 L (136-148) mmol/L Potassium 4.0 (3.5-5.1) mmol/L Chloride 99 (98-107) mmol/L Carbon Dioxide 21.8 (21.0-32.0) mmol/L BUN 7 (7.0-18.0) mg/dL Creatinine 1.0 (0.8-1.3) mg/dL Est Cr Clr Drug Dosing 68.40 mL/min Estimated GFR (MDRD) > 60.0 ml/min Glucose 147 H (74-106) mg/dL Calcium 9.0 (8.5-10.1) mg/dL Total Bilirubin 0.5 (0.2-1.0) mg/dL AST 20 (15-37) IU/L ALT 22 (14-63) IU/L Alkaline Phosphatase 101 (46-116) U/L Troponin I < 0.050 (0.000-0.056) ng/mL Total Protein 8.9 H (6.4-8.2) g/dL Albumin 4.3 (3.4-5.0) g/dL Globulin 4.6 H (2.6-4.0) g/dL Albumin/Globulin Ratio 0.9 (0.9-1.6) TSH 3rd Generation (0.36-3.74) uIU/mL Urine Opiates Screen (NEGATIVE) Ur Oxycodone Screen (NEGATIVE) Urine Methadone Screen (NEGATIVE) Ur Barbiturates Screen (NEGATIVE) Ur Phencyclidine Scrn (NEGATIVE) Ur Amphetamine Screen (NEGATIVE) U Methamphetamines Scrn (NEGATIVE) U Benzodiazepines Scrn (NEGATIVE) U Cocaine Metab Screen (NEGATIVE) U Marijuana (THC) Screen (NEGATIVE) 05/09/20 05/09/20 Range/Units 07:00 08:14 WBC (4.0-11.0) K/uL RBC (4.50-5.90) M/uL Hgb (13.0-17.0) g/dL Hct (38.0-50.0) % MCV (80.0-98.0) fL MCH (27.0-32.0) pg MCHC (31.0-37.0) g/dL RDW Std Deviation (28.0-62.0) fl RDW Coeff of Roger (11.0-15.0) % Plt Count (150-400) K/uL Neut % (Auto) (48.0-80.0) % Lymph % (Auto) (16.0-40.0) % [place] % (Auto) (0.0-15.0) % Eos % (Auto) (0.0-7.0) % Baso % (Auto) (0.0-1.5) % Neut # (Auto) (1.4-5.7) K/uL Lymph # (Auto) (0.6-2.4) K/uL [place] # (Auto) (0.0-0.8) K/uL Eos # (Auto) (0.0-0.7) K/uL Baso # (Auto) (0.0-0.1) K/uL Nucleated RBC % /100WBC Nucleated RBCs # K/uL Lactate (0.20-2.00) mmol/L Sodium (136-148) mmol/L Potassium (3.5-5.1) mmol/L Chloride (98-107) mmol/L Carbon Dioxide (21.0-32.0) mmol/L BUN (7.0-18.0) mg/dL Creatinine (0.8-1.3) mg/dL Est Cr Clr Drug Dosing mL/min Estimated GFR (MDRD) ml/min Glucose (74-106) mg/dL Calcium (8.5-10.1) mg/dL Total Bilirubin (0.2-1.0) mg/dL AST (15-37) IU/L ALT (14-63) IU/L Alkaline Phosphatase (46-116) U/L Troponin I (0.000-0.056) ng/mL Total Protein (6.4-8.2) g/dL Albumin (3.4-5.0) g/dL Globulin (2.6-4.0) g/dL Albumin/Globulin Ratio (0.9-1.6) TSH 3rd Generation 0.94 (0.36-3.74) uIU/mL Urine Opiates Screen POSITIVE (NEGATIVE) Ur Oxycodone Screen NEGATIVE (NEGATIVE) Urine Methadone Screen NEGATIVE (NEGATIVE) Ur Barbiturates Screen NEGATIVE (NEGATIVE) Ur Phencyclidine Scrn NEGATIVE (NEGATIVE) Ur Amphetamine Screen NEGATIVE (NEGATIVE) U Methamphetamines Scrn NEGATIVE (NEGATIVE) U Benzodiazepines Scrn NEGATIVE (NEGATIVE) U Cocaine Metab Screen NEGATIVE (NEGATIVE) U Marijuana (THC) Screen NEGATIVE (NEGATIVE) Meds: Medications Generic Name Dose Route Start Last Admin Trade Name Freq PRN Reason Stop Dose Admin Sodium Chloride 10 ml 05/09/20 07:18 05/09/20 07:28 Saline Flush FLUSH 10 ml ASDIRECTED PRN Administration Keep Vein Open Sodium Chloride 2.5 ml 05/09/20 07:18 05/09/20 07:28 Saline Flush FLUSH 2.5 ml ASDIRECTED PRN Administration Keep Vein Open Discontinued Medications Generic Name Dose Route Start Last Admin Trade Name Freq PRN Reason Stop Dose Admin Clonidine HCl 0.1 mg 05/09/20 07:28 05/09/20 08:02 Catapres PO 05/09/20 07:29 Not Given ONETIME ONE Clonidine HCl 0.1 mg 05/09/20 08:14 05/09/20 08:24 Catapres PO 05/09/20 08:15 0.1 mg ONETIME ONE Administration Lactated Ringer's 1,000 mls @ 999 mls/hr 05/09/20 07:18 05/09/20 07:28 Ringers, Lactated IV 05/09/20 08:18 999 mls/hr .BOLUS ONE Administration Olanzapine 10 mg/ Sterile 2.1 mls @ 999 mls/hr 05/09/20 07:28 05/09/20 07:36 Water IM 05/09/20 07:29 999 mls/hr ONETIME ONE Administration Morphine Sulfate 10 mg 05/09/20 09:02 05/09/20 09:11 Morphine IVPUSH 05/09/20 09:03 10 mg ONETIME ONE Administration Departure - Departure Time of Disposition: 10:01 Disposition: Home, Self-Care 01 Condition: Good Clinical Impression: Acute opioid withdrawal - Discharge Information *PRESCRIPTION DRUG MONITORING PROGRAM REVIEWED*: Not Applicable *COPY OF PRESCRIPTION DRUG MONITORING REPORT IN PATIENT AUGIE: Not Applicable Instructions: Opioid Withdrawal Treatment, Opioid Withdrawal Referrals: Naveen Silva MD [Physician] - 2 Days (For follow-up of prescriptions.) Forms: ED Department Discharge Additional Instructions: Thank you for choosing the [facility] emergency department in [place] for your medical needs today. It was a pleasure caring for you. You were seen in the emergency department for opiate withdrawal. I am going to prescribe a very short course of oral morphine until you can see your doctor on Monday, you need to be very strict about refilling your prescription pain medications in the future. Do not drink alcohol or take any illicit drugs with the morphine or your other controlled medications (Soma). Please return the emergency department immediately if your symptoms worsen or if you feel worse. The following information is given to patients seen in the emergency department who are being discharged. This information is to outline your options for follow-up care. We provide all patients seen in our emergency department with a follow-up referral. The need for follow-up, as well as the timing and circumstances, are variable depending upon the specifics of your emergency department visit. If you don't have a primary care physician on staff, we will provide you with a referral. We always advise you to contact your personal physician following an emergency department visit to inform them of the circumstance of the visit and for follow-up with them and/or the need for any referrals to a consulting specialist. The emergency department will also refer you to a specialist when appropriate. This referral assures that you have the opportunity for follow-up care with a specialist. All of these measure are taken in an effort to provide you with optimal care, which includes your follow-up. Under all circumstances we always encourage you to contact your private physician who remains a resource for coordinating your care. When calling for follow-up care, please make the office aware that this follow-up is from your recent emergency room visit. If for any reason you are refused follow-up, please contact the [facility] Emergency Department at and asked to speak to the emergency department charge nurse. If you do not have a primary care physician that is caring for you, you can contact these clinics below to set up an appointment to establish care: [facility] - Primary Care [address] [place] [address] [facility] [address] [place] [address] Sepsis Event Note (ED) - Evaluation Sepsis Screening Result: No Definite Risk - Focused Exam Vital Signs: Vital Signs Temp Pulse Resp BP BP Pulse Ox 05/09/20 09:20 97 05/09/20 09:02 104 H 17 122/73 96 05/09/20 08:51 140/70 05/09/20 08:24 145/91 H 05/09/20 08:01 95 18 145/91 H 94 L 05/09/20 07:31 103 H 19 133/93 H 98 05/09/20 07:10 36.3 C 121 H 16 149/97 H 99 - My Orders Last 24 Hours: My Active Orders 05/09/20 07:18 Cardiac Monitoring [RC] . DIRECTED EKG Documentation Completion [RC] STAT Pulse Oximetry [RC] ASDIRECTED Sodium Chloride 0.9% [Saline Flush] 10 ml FLUSH ASDIRECTED PRN Sodium Chloride 0.9% [Saline Flush] 2.5 ml FLUSH ASDIRECTED PRN Saline Lock Insert [OM.PC] Stat - Assessment/Plan Last 24 Hours: My Active Orders 05/09/20 07:18 Cardiac Monitoring [RC] . DIRECTED EKG Documentation Completion [RC] STAT Pulse Oximetry [RC] ASDIRECTED Sodium Chloride 0.9% [Saline Flush] 10 ml FLUSH ASDIRECTED PRN Sodium Chloride 0.9% [Saline Flush] 2.5 ml FLUSH ASDIRECTED PRN Saline Lock Insert [OM.PC] Stat
[2020-05-09] MEDS ORDERED: Morphine 2 MG/ML SYRINGE IVPUSH ONE (09:02)
== END 2020-05-09 10:26 | disposition home or self-care (01) ==
LOC: MW.ED 06:55
DX: F11.23 Opioid dependence with withdrawal (principal); I10 Essential (primary) hypertension; I25.2 Old myocardial infarction; J44.9 Chronic obstructive pulmonary disease, unspecified; Z88.5 Allergy status to narcotic agent; Z88.0 Allergy status to penicillin; Z79.899 Other long term (current) drug therapy
CPT/HCPCS: 36415; 71045; 80053; 80305; 83605; 84443; 84484; 85025; 93005; 96361; 96372; 96374; 99285; A9270; J2270; J3490; J7120; 99283

== ENCOUNTER 2020-05-22 05:10 | Emergency (ER) | payer MEDICARE, OTHER ==
--- NOTE | 2020-05-22 05:29 | EDM.PDOC ---
ED HPI GENERAL MEDICAL PROBLEM - General Chief Complaint: General Stated Complaint: SHORT OF BREATH Time Seen by Provider: 05/22/20 05:16 Source of Information: Reports: Patient, Old Records History Limitations: Reports: No Limitations - History of Present Illness INITIAL COMMENTS - FREE TEXT/NARRATIVE: 69-year-old male with a past medical history of COPD on oxygen PRN, chronic back pain with morphine pump placement presenting with shortness of breath. Patient reports the onset of dyspnea around 10:00 this evening while playing poker. This was not associated by any exertion. Shortness of breath persisted throughout the evening so he called the ambulance. Patient did not use any of his albuterol at home before he called 911. Paramedics administered one nebulized bronchodilator treatment en route. Here in the ER, the patient does complain of some mild shortness of breath, but states he is breathing better after the breathing treatment. He also complains of one day of subjective fever and a sore throat. He denies any chest discomfort, hemoptysis, vomiting, diarrhea. Patient denies history of venous thromboembolism, lower extremity pain or swelling, hemoptysis, recent surgery or immobilization or long travel, history of active malignancy, or hormonal medication/product usage. ROS: A 10-point review of systems was negative, except as noted in the HPI (or in the ROS section of this note). Past medical history: Reviewed, no additional pertinent history. Surgical history: Reviewed in system, no additional pertinent history. Social history: Reviewed in system, no additional pertinent history. Family history: Reviewed in system, no additional pertinent history. PHYSICAL EXAM Vital signs reviewed. Nursing notes reviewed. Constitutional: Awake, alert, non-distressed. Head: Normocephalic, atraumatic. Eyes: EOMI, conjunctiva normal, no discharge, no scleral icterus. Ears, Nose, Throat: External ears and nose normal, moist oral mucosa. Cardiovascular: 2+ radial pulse, capillary refill less than 2 seconds. RRR no MRG Pulmonary: normal work of breathing, no accessory muscle use. CTABL Abdomen/GI: Soft, nontender, nondistended, no guarding or rigidity, no masses. Musculoskeletal: No deformities. Integumentary: Appropriate color for ethnicity, warm, dry, no pallor or jaundice, no rash. Neurologic: Alert, answering questions appropriately, normal speech, no facial droop, moving all extremities well. Psychiatric: Appropriate mood and affect, normal thought process. throat Pain Score (Numeric/FACES): 9 - Related Data Allergies Allergy/AdvReac Type Severity Reaction Status Date / Time codeine Allergy Dizziness Verified 05/22/20 09:46 Penicillins Allergy Rash Verified 05/22/20 09:46 Home Meds: Home Meds Umeclidinium [place] [Incruse Ellipta*] 1 puff INH DAILY 03/20/19 [History] carisoprodoL [Soma] 350 mg PO BID PRN 03/20/19 [History] Morphine Sulfate 15 mg PO BID PRN 11/16/19 [History] Morphine Sulfate [Morphine Sulfate Cr] 60 mg PO BID PRN 11/16/19 [History] Morphine Sulfate [Morphine Sulfate ER] 15 mg PO BID PRN 11/16/19 [History] Omeprazole 20 mg PO BID 11/16/19 [History] Albuterol [Ventolin HFA] 1 puff INH Q4H PRN #1 inhaler 11/19/19 [Rx] Morphine Sulfate 15 mg PO BID #3 tablet 05/09/20 [Rx] Morphine Sulfate [Morphine Sulfate ER] 60 mg PO BID #3 cap.er.pel 05/09/20 [Rx] Ferrous Sulfate [Iron] 325 mg PO DAILY #30 tablet 05/22/20 [Rx] Past Medical History HEENT History: Reports: Impaired Vision Cardiovascular History: Reports: Hypertension, [place] Respiratory History: Reports: COPD, Other (See Below) Other Respiratory History: O2 at home Gastrointestinal History: Reports: None Genitourinary History: Reports: None Musculoskeletal History: Reports: Back Pain, Chronic Neurological History: Reports: None Psychiatric History: Reports: None Endocrine/Metabolic History: Reports: None 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 Hematologic History: Reports: None Immunologic History: Reports: None Oncologic (Cancer) History: Reports: None Dermatologic History: Reports: None - Infectious Disease History Infectious Disease History: Reports: None - Past Surgical History Head Surgeries/Procedures: Reports: None HEENT Surgical History: Reports: None Cardiovascular Surgical History: Reports: None Respiratory Surgical History: Reports: None GI Surgical History: Reports: Hernia, Abdominal Male Surgical History: Reports: None Endocrine Surgical History: Reports: None Neurological Surgical History: Reports: None Musculoskeletal Surgical History: Reports: None Oncologic Surgical History: Reports: None Dermatological Surgical History: Reports: None Social & Family History - Family History Family Medical History: Noncontributory - Caffeine Use Caffeine Use: Reports: Soda - Recreational Drug Use Recreational Drug Use: No ED ROS GENERAL - Review of Systems Review Of Systems: See Below ED EXAM, GENERAL - Physical Exam Exam: See Below EKG INTERPRETATION EKG Interpretation Comments: 12-Lead ECG Interpretation Acquired: 5:41 AM Rhythm: Sinus rhythm Rate: 93 bpm [place]: Normal Intervals: Normal Ectopy: None Interpretation: Left anterior fascicular block, poor R-wave progression, low voltage in precordial leads. Course - Vital Signs Text/Narrative:: Patient hemodynamically stable, afebrile, well-appearing, looks nontoxic. CBC shows worsening of microcytic anemia. Reticulocyte count is normal but ferritin is quite low. Electrolytes and renal function are reassuring. Troponin testing is negative. Chest x-rays are clear. COVID testing is negative. Twelve-lead EKG is nonischemic. COVID PCR negative. I considered a multitude of differential diagnoses for the patient's shortness of breath, including: Acute coronary syndrome: the ECG does not demonstrate acute ischemia and troponin testing is negative. They have no chest pain. Pulmonary embolism: Low clinical suspicion. There is no resting tachycardia, pleuritic pain component, and no clinical sign of DVT on physical examination. They have no chest pain and dyspnea resolved after a single bronchodilator treatment. Pneumonia: The patient has no hypoxia or tachypnea, and has no new radiographic infiltrate. They have no systemic signs of illness such as fever, hypoxia, tachycardia, or rigors. Acute decompensated heart failure/pulmonary edema: no significant respiratory distress (hypoxia, tachypnea), no significant lower extremity edema, no evidence of edema on chest x-rays, no JVD. Pneumo/hemothorax or pleural effusion: no evidence of such on imaging studies, no history of thoracic trauma. Asthma exacerbation: No wheezing or prolonged expiratory phase. No history of asthma. Critical aortic stenosis: No murmur or syncope, no chest pain, no known history of aortic stenosis. Pericardial effusion: Normal heart sounds. No evidence on imaging studies. Andrew/pericarditis: No fever, no friction rub, negative troponin testing, non- diagnostic ECG. Viral syndrome (URI, bronchitis): Not supported by history, no rhinorrhea, cough, sore throat, fever, headache, myalgias, or other typical symptoms endorsed. Etiology of patient's dyspnea is not entirely clear at this point but it seems to have resolved while he was in the ED. Only latent complaint is a mild sore throat. He is well appearing and stable to discharge home with primary care f monicalow-up. 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 I'm going to start him on an iron supplement in the mean time. We will discharge him home with plans to follow up in the family medicine clinic. Strict ED return precautions were provided for new or worsening symptoms. All questions answered prior to being discharged in good condition. Last Recorded V/S: Last Vital Signs Temp 36.6 C 05/22/20 05:14 Pulse 77 05/22/20 07:10 Resp 18 05/22/20 07:10 BP 125/84 05/22/20 07:10 Pulse Ox 95 05/22/20 07:10 - Orders/Labs/Meds Labs: Laboratory Tests 05/22/20 05/22/20 05/22/20 Range/Units 05:25 05:25 05:27 WBC 10.29 (4.0-11.0) K/uL RBC 5.01 5.01 (4.50-5.90) M/uL Hgb 9.8 L (13.0-17.0) g/dL Hct 33.8 L (38.0-50.0) % MCV 67.5 L (80.0-98.0) fL MCH 19.6 L (27.0-32.0) pg MCHC 29.0 L (31.0-37.0) g/dL RDW Std Deviation 42.5 (28.0-62.0) fl RDW Coeff of Roger 17 H (11.0-15.0) % Plt Count 203 (150-400) K/uL MPV 9.70 (7.40-12.00) fL Neut % (Auto) 74.2 (48.0-80.0) % Lymph % (Auto) 18.6 (16.0-40.0) % Swisher % (Auto) 6.5 (0.0-15.0) % Eos % (Auto) 0.4 (0.0-7.0) % Baso % (Auto) 0.3 (0.0-1.5) % Neut # (Auto) 7.6 H (1.4-5.7) K/uL Lymph # (Auto) 1.9 (0.6-2.4) K/uL Swisher # (Auto) 0.7 (0.0-0.8) K/uL Eos # (Auto) 0.0 (0.0-0.7) K/uL Baso # (Auto) 0.0 (0.0-0.1) K/uL Nucleated RBC % 0.0 /100WBC Nucleated RBCs # 0 K/uL Absolute Retic 80.20 H (20-80) K/uL Percent Retic 1.6 H (0.5-1.5) % Immature Retic Fraction 15 % Sodium (136-148) mmol/L Potassium (3.5-5.1) mmol/L Chloride (98-107) mmol/L Carbon Dioxide (21.0-32.0) mmol/L BUN (7.0-18.0) mg/dL Creatinine (0.8-1.3) mg/dL Est Cr Clr Drug Dosing mL/min Estimated GFR (MDRD) ml/min Glucose (74-106) mg/dL Calcium (8.5-10.1) mg/dL Iron 16 L (50-175) ug/dL TIBC 422 (250-450) ug/dL % Saturation 3.79 L (20-55) % Ferritin 5 L (26-388) ng/mL Total Bilirubin (0.2-1.0) mg/dL AST (15-37) IU/L ALT (14-63) IU/L Alkaline Phosphatase (46-116) U/L Troponin I (0.000-0.056) ng/mL Total Protein (6.4-8.2) g/dL Albumin (3.4-5.0) g/dL Globulin (2.6-4.0) g/dL Albumin/Globulin Ratio (0.9-1.6) COVID-19 (SHAWNA) (NEGATIVE) 05/22/20 05/22/20 Range/Units 05:27 06:00 WBC (4.0-11.0) K/uL RBC (4.50-5.90) M/uL Hgb (13.0-17.0) g/dL Hct (38.0-50.0) % MCV (80.0-98.0) fL MCH (27.0-32.0) pg MCHC (31.0-37.0) g/dL RDW Std Deviation (28.0-62.0) fl RDW Coeff of Roger (11.0-15.0) % Plt Count (150-400) K/uL MPV (7.40-12.00) fL Neut % (Auto) (48.0-80.0) % Lymph % (Auto) (16.0-40.0) % Swisher % (Auto) (0.0-15.0) % Eos % (Auto) (0.0-7.0) % Baso % (Auto) (0.0-1.5) % Neut # (Auto) (1.4-5.7) K/uL Lymph # (Auto) (0.6-2.4) K/uL Swisher # (Auto) (0.0-0.8) K/uL Eos # (Auto) (0.0-0.7) K/uL Baso # (Auto) (0.0-0.1) K/uL Nucleated RBC % /100WBC Nucleated RBCs # K/uL Absolute Retic (20-80) K/uL Percent Retic (0.5-1.5) % Immature Retic Fraction % Sodium 135 L (136-148) mmol/L Potassium 4.2 (3.5-5.1) mmol/L Chloride 101 (98-107) mmol/L Carbon Dioxide 24.3 (21.0-32.0) mmol/L BUN 7 (7.0-18.0) mg/dL Creatinine 1.0 (0.8-1.3) mg/dL Est Cr Clr Drug Dosing 77.60 mL/min Estimated GFR (MDRD) > 60.0 ml/min Glucose 128 H (74-106) mg/dL Calcium 8.5 (8.5-10.1) mg/dL Iron (50-175) ug/dL TIBC (250-450) ug/dL % Saturation (20-55) % Ferritin (26-388) ng/mL Total Bilirubin 0.6 (0.2-1.0) mg/dL AST 15 (15-37) IU/L ALT 15 (14-63) IU/L Alkaline Phosphatase 73 (46-116) U/L Troponin I < 0.050 (0.000-0.056) ng/mL Total Protein 7.1 (6.4-8.2) g/dL Albumin 3.6 (3.4-5.0) g/dL Globulin 3.5 (2.6-4.0) g/dL Albumin/Globulin Ratio 1.0 (0.9-1.6) COVID-19 (SHAWNA) NEGATIVE (NEGATIVE) Meds: Medications Discontinued Medications Generic Name Dose Route Start Last Admin Trade Name Darrenq PRN Reason Stop Dose Admin Ondansetron HCl 4 mg 05/22/20 06:52 05/22/20 09:04 Zofran IVPUSH 05/22/20 06:53 Not Given ONETIME ONE Ondansetron HCl 4 mg 05/22/20 07:06 05/22/20 07:09 Zofran Odt PO 05/22/20 07:07 4 mg ONETIME ONE Administration Departure - Departure Time of Disposition: 07:08 Disposition: Home, Self-Care 01 Condition: Good Clinical Impression: Microcytic anemia Dyspnea Qualifiers: Dyspnea type: unspecified Qualified Code(s): R06.00 - Dyspnea, unspecified Iron deficiency anemia Qualifiers: Iron deficiency anemia type: unspecified iron deficiency Qualified Code(s): D50 .9 - Iron deficiency anemia, unspecified - Discharge Information *PRESCRIPTION DRUG MONITORING PROGRAM REVIEWED*: Not Applicable *COPY OF PRESCRIPTION DRUG MONITORING REPORT IN PATIENT AUGIE: Not Applicable Prescriptions: Ferrous Sulfate [Iron] 325 mg PO DAILY #30 tablet Instructions: Shortness of Breath, Adult, [id number], Anemia Referrals: [facility] - [facility] Practice [Provider Group] - 1 Week Forms: ED Department Discharge Additional Instructions: You were seen in the emergency department for shortness of breath. At this point your x-rays, EKG, and blood work look reassuring. However, you do have worsening iron deficiency anemia. For most adults this is due to a slow bleed in your colon, sometimes this is due to colon cancer. It is very important you follow-up with a primary medicine clinic in the next 1 to 2 weeks for reevaluation. You may need to be scheduled for a colonoscopy to evaluate for bleeding in the stool or have other specialty laboratory testing performed to determine the cause of your anemia. If you feel like it is becoming more difficult to breathe or if you are having any chest pain or any other new or concerning symptoms come back to the ER right away. Please return the emergency department immediately if your symptoms worsen or if you feel worse. Thank you for choosing the [facility] emergency department in [place] for your medical needs today. It was a pleasure caring for you. The following information is given to patients seen in the emergency department who are being discharged. This information is to outline your options for follow-up care. We provide all patients seen in our emergency department with a follow-up referral. The need for follow-up, as well as the timing and circumstances, are variable depending upon the specifics of your emergency department visit. If you don't have a primary care physician on staff, we will provide you with a referral. We always advise you to contact your personal physician following an emergency department visit to inform them of the circumstance of the visit and for follow-up with them and/or the need for any referrals to a consulting sp ecialist. The emergency department will also refer you to a specialist when appropriate. This referral assures that you have the opportunity for follow-up care with a specialist. All of these measure are taken in an effort to provide you with optimal care, which includes your follow-up. Under all circumstances we always encourage you to contact your private physician who remains a resource for coordinating your care. When calling for follow-up care, please make the office aware that this follow-up is from your recent emergency room visit. If for any reason you are refused follow-up, please contact the [facility] Emergency Department at and asked to speak to the emergency department charge nurse. If you do not have a primary care physician that is caring for you, you can contact these clinics below to set up an appointment to establish care: [facility] - Primary Care [address], [place] [address] [facility] [address] [place] [id number] Sepsis Event Note (ED) - Evaluation Sepsis Screening Result: No Definite Risk - Focused Exam Vital Signs: Vital Signs Temp Pulse Resp BP Pulse Ox 05/22/20 07:10 77 18 125/84 95 05/22/20 06:20 82 20 159/78 H 97 05/22/20 06:15 86 18 159/78 H 95 05/22/20 05:38 95 169/89 H 05/22/20 05:14 36.6 C 93 22 H 167/88 H 93 L
[2020-05-22 06:00] LABS: BLOOD UREA NITROGEN,BUN 7 mg/dL (7.0-18.0); CARBON DIOXIDE,CO2 24.3 mmol/L (21.0-32.0); CHLORIDE,CL 101 mmol/L (98-107); GLUCOSE RANDOM 128 mg/dL (74-106); POTASSIUM,K 4.2 mmol/L (3.5-5.1); SODIUM,NA 135 mmol/L (136-148)
--- NOTE | 2020-05-22 06:23 | CR ---
INDICATION: dyspnea HISTORY Dyspnea. COMPARISON 05/09/2020. TECHNIQUE Chest, 2 views. FINDINGS Calcified granulomas, stable. Linear atelectasis or scar at the left lung base. The heart size and pulmonary vasculature are within normal limits. Lungs and pleural spaces are otherwise clear. There is no pneumothorax. Central airway is normal. 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 IMPRESSION There is no acute airspace disease. Dictated by: Chet Joy MD @ 05/22/2020 06:20:59 (Electronically Signed)
[2020-05-22] MEDS ORDERED: Ondansetron 4 MG/2 ML SDV IVPUSH ONE (06:52)
[2020-05-22] MEDS ORDERED: Ondansetron 4 MG Tab.DIS PO ONE (07:06)
== END 2020-05-22 07:20 | disposition home or self-care (01) ==
LOC: MW.ED 05:10
DX: D50.9 Iron deficiency anemia, unspecified (principal); R06.00 Dyspnea, unspecified; J44.9 Chronic obstructive pulmonary disease, unspecified; I25.2 Old myocardial infarction; I10 Essential (primary) hypertension; Z88.6 Allergy status to analgesic agent; Z88.0 Allergy status to penicillin
CPT/HCPCS: 36415; 71046; 80053; 82728; 83550; 84484; 85025; 85045; 93005; A9270; U0002; 99284; 99285-25

== ENCOUNTER 2020-05-22 09:16 | Observation (INO) | payer MEDICARE ==
[2020-05-22] MEDS ORDERED: Ondansetron 4 MG/2 ML SDV IVPUSH ONE (09:31)
[2020-05-22] MEDS ORDERED: Sodium Chloride 0.9% 10 ML Syringe FLUSH PRN (09:33)
[2020-05-22] MEDS ORDERED: Sodium Chloride 0.9% 2.5 ML Syringe FLUSH PRN ×2 (09:33→11:54)
--- NOTE | 2020-05-22 09:53 | EDM.PDOC ---
ED HPI GENERAL MEDICAL PROBLEM - General Chief Complaint: Respiratory Problem Stated Complaint: HEADACHE AND SHAKING Time Seen by Provider: 05/22/20 09:21 - History of Present Illness INITIAL COMMENTS - FREE TEXT/NARRATIVE: History of present illness: Patient presents to the ED with concerns about increasing chest pressure difficulty breathing and sweating. He was in the emergency department earlier this morning with difficulty breathing he was evaluated for unstable angina COPD and for COVID the studies were fairly unremarkable and the patient had been discharged. He states when he got home he began feeling worse and developed chest pressure that is in the epigastric region radiating up into his central substernal chest. He denies any fever chills but has been diaphoretic since he decided to return to the ED. He has a history of chronic pain COPD. Previously he was also tested for COVID this morning that was negative. Review of systems: As per history of present illness and below otherwise all systems reviewed and negative. Past medical history: As per history of present illness and as reviewed below otherwise noncontributory. Surgical history: As per history of present illness and as reviewed below otherwise noncontributory. Social history: No reported history of drug or alcohol abuse. Family history: As per history of present illness and as reviewed below otherwise noncontributory. Physical exam: HEENT: Atraumatic, normocephalic, pupils reactive, negative for conjunctival pallor or scleral icterus, mucous membranes moist, throat clear, neck supple, nontender, trachea midline. Lungs: Clear to auscultation, breath sounds equal bilaterally, chest nontender. Heart: S1S2, regular, negative for clicks, rubs, or JVD. Abdomen: Soft, nondistended, nontender. Negative for masses or hepatosp lenomegaly. Negative for costovertebral tenderness. Pelvis: Stable nontender. Genitourinary: Deferred. Rectal: Deferred. Extremities: Atraumatic, negative for cords or calf pain. Neurovascular unremar kable. Neuro: Awake, alert, oriented. Cranial nerves II through XII unremarkable. Cerebellum unremarkable. Motor and sensory unremarkable throughout. Exam nonfocal. Skin: Pallor and diaphoresis Diagnostics: [] Therapeutics: [] Impression: [] Plan: Repeat an EKG and cardiac enzymes [] Definitive disposition and diagnosis as appropriate pending reevaluation and review of above. Treatments [employer]: Reports: EKG abdomen Pain Score (Numeric/FACES): 8 - Related Data Allergies Allergy/AdvReac Type Severity Reaction Status Date / Time codeine Allergy Dizziness Verified 05/22/20 09:46 Penicillins Allergy Rash Verified 05/22/20 09:46 Home Meds: Home Meds Umeclidinium [place] [Incruse Ellipta*] 1 puff INH DAILY 03/20/19 [History] carisoprodoL [Soma] 350 mg PO BID PRN 03/20/19 [History] Morphine Sulfate 15 mg PO BID PRN 11/16/19 [History] Morphine Sulfate [Morphine Sulfate Cr] 60 mg PO BID PRN 11/16/19 [History] Morphine Sulfate [Morphine Sulfate ER] 15 mg PO BID PRN 11/16/19 [History] Omeprazole 20 mg PO BID 11/16/19 [History] Albuterol [Ventolin HFA] 1 puff INH Q4H PRN #1 inhaler 11/19/19 [Rx] Morphine Sulfate 15 mg PO BID #3 tablet 05/09/20 [Rx] Morphine Sulfate [Morphine Sulfate ER] 60 mg PO BID #3 cap.er.pel 05/09/20 [Rx] Ferrous Sulfate [Iron] 325 mg PO DAILY #30 tablet 05/22/20 [Rx] Past Medical History HEENT History: Reports: Impaired Vision Cardiovascular History: Reports: Hypertension, [place] Respiratory History: Reports: COPD, Other (See Below) Other Respiratory History: O2 at home Gastrointestinal History: Reports: None Genitourinary History: Reports: None Musculoskeletal History: Reports: Back Pain, Chronic Neurological History: Reports: None Psychiatric History: Reports: None Endocrine/Metabolic History: Reports: None 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 Telegraph [employer] Teletype Operator: None Hematologic History: Reports: None Immunologic History: Reports: None Oncologic (Cancer) History: Reports: None Dermatologic History: Reports: None - Infectious Disease History Infectious Disease History: Reports: None - Past Surgical History Head Surgeries/Procedures: Reports: None HEENT Surgical History: Reports: None Cardiovascular Surgical History: Reports: None Respiratory Surgical History: Reports: None GI Surgical History: Reports: Hernia, Abdominal Male Surgical History: Reports: None Endocrine Surgical History: Reports: None Neurological Surgical History: Reports: None Musculoskeletal Surgical History: Reports: None Oncologic Surgical History: Reports: None Dermatological Surgical History: Reports: None Social & Family History - Family History Family Medical History: Noncontributory - Caffeine Use Caffeine Use: Reports: Soda ED ROS GENERAL - Review of Systems Review Of Systems: See Below ED EXAM, GENERAL - Physical Exam Exam: See Below EKG INTERPRETATION EKG Interpretation Comments: EKG is normal sinus rhythm rate of [address]-T changes right bundle branch block no sam ischemia is appreciated. Interpreted by me Course - Vital Signs Text/Narrative:: A 2 view chest obtained at his previous visit this morning was read and interpreted by me no acute cardiopulmonary pathology is evident. Patient continues to have epigastric pain he had a negative troponin negative EKG on his second sets. I discussed case with Dr. Horne at 11:15 AM he will admit the patient telemetry obs Last Recorded V/S: Last Vital Signs Temp 36.0 C L 05/22/20 09:20 Pulse 75 05/22/20 10:30 Resp 19 05/22/20 10:30 BP 143/77 H 05/22/20 10:30 Pulse Ox 97 05/22/20 10:30 - Orders/Labs/Meds Orders: Active Orders 24 hr Category Date Time Status Patient Status [ADT] Routine ADT 05/22/20 11:15 Ordered EKG 12 Lead [EKG Documentation Completion] [RC] STAT Care 05/22/20 09:32 Active Sodium Chloride 0.9% [Saline Flush] Med 05/22/20 09:33 Active 10 ml FLUSH ASDIRECTED PRN Sodium Chloride 0.9% [Saline Flush] Med 05/22/20 09:33 Active 2.5 ml FLUSH ASDIRECTED PRN Saline Lock Insert [OM.PC] Stat Oth 05/22/20 09:33 Ordered Medication Orders Sodium Chloride (Saline Flush) 10 ml FLUSH ASDIRECTED PRN PRN Reason: Keep Vein Open Last Admin: 05/22/20 10:52 Dose: 10 ml Documented by: FABRICIO Sodium Chloride (Saline Flush) 2.5 ml FLUSH ASDIRECTED PRN PRN Reason: Keep Vein Open Last Admin: 05/22/20 10:55 Dose: 2.5 ml Documented by: FABRICIO Labs: Laboratory Tests 05/22/20 05/22/20 Range/Units 09:43 09:43 Troponin I < 0.050 (0.000-0.056) ng/mL B-Natriuretic Peptide 75 (<100) PG/ML Meds: Medications Generic Name Dose Route Start Last Admin Trade Name Ivory PRN Reason Stop Dose Admin Sodium Chloride 10 ml 05/22/20 09:33 05/22/20 10:52 Saline Flush FLUSH 10 ml ASDIRECTED PRN Administration Keep Vein Open Sodium Chloride 2.5 ml 05/22/20 09:33 05/22/20 10:55 Saline Flush FLUSH 2.5 ml ASDIRECTED PRN Administration Keep Vein Open Discontinued Medications Generic Name Dose Route Start Last Admin Trade Name Ivory PRN Reason Stop Dose Admin Aspirin 324 mg 05/22/20 10:12 05/22/20 10:15 Aspirin PO 05/22/20 10:13 324 mg ONETIME ONE Administration Aspirin Confirm 05/22/20 10:12 05/22/20 10:16 Aspirin Administered 05/22/20 10:13 Not Given Dose 324 mg .ROUTE .STK-MED ONE Famotidine 20 mg 05/22/20 10:44 05/22/20 10:49 Pepcid IVPUSH 05/22/20 10:45 20 mg ONETIME ONE Administration Famotidine Confirm 05/22/20 10:45 05/22/20 10:52 Pepcid Administered 05/22/20 10:46 Not Given Dose 20 mg .ROUTE .STK-MED ONE Ondansetron HCl 4 mg 05/22/20 09:31 05/22/20 09:47 Zofran IVPUSH 05/22/20 09:32 4 mg ONETIME ONE Administration Departure - Departure Time of Disposition: 11:10 Disposition: Refer to Observation Condition: Good Clinical Impression: Chest pain - Discharge Information Referrals: PCP,None [Primary Care Provider] - Forms: ED Department Discharge Additional Instructions: You have a follow up appointment at [facility] on June 04 at 1:30PM. Please arrive at least 15 minutes early for registration purposes. Sepsis Event Note (ED) - Evaluation Sepsis Screening Result: No Definite Risk - Focused Exam Vital Signs: Vital Signs Temp Pulse Resp BP Pulse Ox 05/22/20 10:30 75 19 143/77 H 97 05/22/20 10:00 82 20 150/73 H 96 05/22/20 09:20 36.0 C L 87 21 H 170/94 H 97 - My Orders Last 24 Hours: My Active Orders 05/22/20 09:32 EKG 12 Lead [EKG Documentation Completion] [RC] STAT 05/22/20 09:33 Sodium Chloride 0.9% [Saline Flush] 10 ml FLUSH ASDIRECTED PRN Sodium Chloride 0.9% [Saline Flush] 2.5 ml FLUSH ASDIRECTED PRN Saline Lock Insert [OM.PC] Stat 05/22/20 11:15 Patient Status [ADT] Routine - Assessment/Plan Last 24 Hours: My Active Orders 05/22/20 09:32 EKG 12 Lead [EKG Documentation Completion] [RC] STAT 05/22/20 09:33 Sodium Chloride 0.9% [Saline Flush] 10 ml FLUSH ASDIRECTED PRN Sodium Chloride 0.9% [Saline Flush] 2.5 ml FLUSH ASDIRECTED PRN Saline Lock Insert [OM.PC] Stat 05/22/20 11:15 Patient Status [ADT] Routine
[2020-05-22] MEDS ORDERED: Aspirin 81 MG Tab.Chew ONE (10:12)
[2020-05-22] MEDS ORDERED: Aspirin 81 MG Tab.Chew PO ONE (10:12)
[2020-05-22] MEDS ORDERED: Famotidine 20 MG/2 ML SDV IVPUSH ONE (10:44)
[2020-05-22] MEDS ORDERED: Famotidine 20 MG/2 ML SDV ONE (10:45)
[2020-05-22] MEDS ORDERED: Acetaminophen 325 MG Tab PO PRN (11:54)
[2020-05-22] MEDS ORDERED: Ondansetron 4 MG/2 ML SDV IVPUSH PRN (11:54)
[2020-05-22] MEDS ORDERED: Alum Hydrox/Mag Hydrox/Simeth 15 ML, Lidocaine 2% 5 ML PO ONE ×2 (12:01)
--- NOTE | 2020-05-22 12:09 | PCM.HP.2 ---
H&P History of Present Illness - General Date of Service: 05/22/20 Admit Problem/Dx: Admission Diagnosis/Problem Admission Diagnosis/Problem Chest pain Source of Information: Patient History Limitations: Reports: No Limitations - History of Present Illness Initial Comments - Free Text/Narative: This 61-year-old male with PMH of COPD, CAD, chronic narcotic use due to chronic back pain presents to ER with complaints of chest pressure and difficulty breathing along with diaphoresis. He was seen earlier this morning in the ER for similar symptoms was worked up and evaluated and discharged home. He was at home for short time and started feeling the chest pressure and shortness of breath again. He reports the pain is substernal and is dull achy in nature with no radiation. He reports associated symptoms of diaphoresis and shortness of breath. He also feels like at times he is sleeping and wakes up not breathing. He reports he does not sleep much but may be may be for approximately 30 minutes to 1 hour at a time. He reports having history of DE in the past x2 last. Denies currently taking any medications for CAD. Denies stents. Reports Angiogram and stress test in the . He denies tobacco use, alcohol use or recreational drug use. He denies any other symptoms such as fevers, chills, cough, abdominal pain or urinary concerns. Reports mild constipation, which is baseline with narcotic use. He does intermittently use oxygen In the ED CBC and BMP from this morning were negative. Troponin x 2 negative. EKG SR with no acute ischemic changes. CXR negative for acute cardiopulmonary process. He will be admitted for atypical chest pain. PCP, Dr Gisela Whitney abdomen Pain Score (Numeric/FACES): 8 - Related Data Allergies/Adverse Reactions: Allergies Allergy/AdvReac Type Severity Reaction Status Date / Time codeine Allergy Dizziness Verified 05/22/20 09:46 Penicillins Allergy Rash Verified 05/22/20 09:46 Home Medications: Home Meds Umeclidinium [place] [Incruse Ellipta*] 1 puff INH DAILY 03/20/19 [History] carisoprodoL [Soma] 350 mg PO BID PRN 03/20/19 [History] Morphine Sulfate 15 mg PO BID PRN 11/16/19 [History] Morphine Sulfate [Morphine Sulfate Cr] 60 mg PO BID PRN 02/15/20 [History] Morphine Sulfate [Morphine Sulfate ER] 15 mg PO BID PRN 11/16/19 [History] Omeprazole 20 mg PO BID 11/16/19 [History] Albuterol [Ventolin HFA] 1 puff INH Q4H PRN #1 inhaler 11/19/19 [Rx] Morphine Sulfate 15 mg PO BID #3 tablet 05/09/20 [Rx] Morphine Sulfate [Morphine Sulfate ER] 60 mg PO BID #3 cap.er.pel 05/09/20 [Rx] Ferrous Sulfate [Iron] 325 mg PO DAILY #30 tablet 05/22/20 [Rx] Past Medical History HEENT History: Reports: Impaired Vision Cardiovascular History: Reports: CAD, Hypertension, [place]. 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: None Hematologic History: Reports: None Immunologic History: Reports: None Oncologic (Cancer) History: Reports: None Dermatologic History: Reports: None - Infectious Disease History Infectious Disease History: Reports: None - Past Surgical History Head Surgeries/Procedures: Reports: None HEENT Surgical History: Reports: None Cardiovascular Surgical History: Reports: None Respiratory Surgical History: Reports: None GI Surgical History: Reports: Hernia, Abdominal Male Surgical History: Reports: None Endocrine Surgical History: Reports: None Neurological Surgical History: Reports: None Musculoskeletal Surgical History: Reports: None Oncologic Surgical History: Reports: None Dermatological Surgical History: Reports: None Social & Family History - Family History Family Medical History: Noncontributory - Tobacco Use Smoking Status *Q: Former Smoker Used Tobacco, but Quit: Yes Month/Year Tobacco Last Used: "10years ago" - Tobacco Core Measures Tobacco Use/Smoking Within Last 30 Days: No - Caffeine Use Caffeine Use: Reports: Soda - Recreational Drug Use Recreational Drug Use: No H&P Review of Systems - Review of Systems: Review Of Systems: See Below General: Reports: No Symptoms. Denies: Chills, Malaise HEENT: Reports: No Symptoms. Denies: Headaches, Sinus Congestion, Vertigo Pulmonary: Reports: Shortness of Breath. Denies: Cough Cardiovascular: Reports: Chest Pain. Denies: Palpitations, Lightheadedness Gastrointestinal: Reports: Constipation, Nausea. Denies: Abdominal Pain, Black Stool, Bloody Stool, Diarrhea, Vomiting Genitourinary: Reports: No Symptoms. Denies: Dysuria, Frequency, Burning Musculoskeletal: Reports: Back Pain (chronic) Skin: Reports: No Symptoms Psychiatric: Reports: No Symptoms Neurological: Reports: No Symptoms Hematologic/Lymphatic: Reports: No Symptoms Immunologic: Reports: No Symptoms Exam - Exam Exam: See Below - Vital Signs Vital Signs: Last Vital Signs Temp 96.8 F L 05/22/20 09:20 Pulse 75 05/22/20 10:30 Resp 19 05/22/20 10:30 BP 143/77 H 05/22/20 10:30 Pulse Ox 97 05/22/20 10:30 - Exam General: Alert, Oriented, Cooperative Neck: Supple, Trachea Midline Lungs: Clear to Auscultation, Normal Respiratory Effort Cardiovascular: Regular Rate, Regular Rhythm, Normal S1, Normal S2. No: Systolic Murmur GI/Abdominal Exam: Normal Bowel Sounds, Soft, Non-Tender, No Mass, Other (morphine pump noted to R lower abdomen, non functional) Back Exam: Normal Inspection, Full Range of Motion Extremities: Normal Inspection, Normal Range of Motion, Non-Tender, No Pedal Edema Neuro Extensive - Mental Status: Alert, Oriented x3 Neuro Extensive - Motor, Sensory, Reflexes: CN II-XII Intact Psychiatric: Alert, Normal Affect, Anxious - Patient Data Lab Results Last 24 hrs: Laboratory Results - last 24 hr 05/22/20 05/22/20 Range/Units 09:43 09:43 Troponin I < 0.050 (0.000-0.056) ng/mL B-Natriuretic Peptide 75 (<100) PG/ML Sepsis Event Note - Evaluation Sepsis Screening Result: No Definite Risk - Focused Exam Vital Signs: Vital Signs Temp Pulse Resp BP Pulse Ox 05/22/20 10:30 75 19 143/77 H 97 05/22/20 10:00 82 20 150/73 H 96 05/22/20 09:20 96.8 F L 87 21 H 170/94 H 97 - Problem List (1) Chest pain SNOMED Code(s): 69342819 ICD Code: R07.9 - CHEST PAIN, UNSPECIFIED Status: Acute Current Visit: Yes (2) COPD (chronic obstructive pulmonary disease) SNOMED Code(s): 03404508 ICD Code: J44.9 - CHRONIC OBSTRUCTIVE PULMONARY DISEASE, UNSPECIFIED Status: Chronic Current Visit: Yes (3) Chronic back pain SNOMED Code(s): 127371508 ICD Code: M54.9 - DORSALGIA, UNSPECIFIED; G89.29 - OTHER CHRONIC PAIN Status: Chronic Current Visit: No Qualifiers: Back pain location: low back pain Back pain laterality: midline Sciatica presence: without sciatica Qualified Code(s): M54.5 - Low back pain; G89.29 - Other chronic pain (4) Microcytic anemia SNOMED Code(s): 131516835 ICD Code: D50.9 - IRON DEFICIENCY ANEMIA, UNSPECIFIED Status: Chronic Current Visit: No (5) Chronic narcotic dependence SNOMED Code(s): 69119496, 13795541 ICD Code: F11.20 - OPIOID DEPENDENCE, UNCOMPLICATED Status: Chronic Current Visit: Yes Problem List Initiated/Reviewed/Updated: Yes Orders Last 24hrs: Active Orders 24 hr Category Date Time Status Patient Status [ADT] Routine ADT 05/22/20 11:15 Active Antiembolic Devices [RC] PER UNIT ROUTINE Care 05/22/20 11:57 Active EKG 12 Lead [EKG Documentation Completion] [RC] STAT Care 05/22/20 09:32 Active Intake and Output [RC] QSHIFT Care 05/22/20 11:56 Active Oxygen Therapy [RC] PRN Care 05/22/20 11:55 Active Telemetry Monitoring [Cardiac Monitoring] [RC] Q8H Care 05/22/20 11:31 Active Up ad Tata [RC] ASDIRECTED Care 05/22/20 11:54 Active VTE/DVT Education [RC] PER UNIT ROUTINE Care 05/22/20 11:55 Active Vital Signs [RC] Q4H Care 05/22/20 11:55 Active Heart Healthy Diet [DIET] Diet 05/22/20 Lunch Active GLYCOSYLATED HEMOGLOBIN,HGBA1C [CHEM] Routine Lab 05/22/20 12:00 Ordered LIPID PANEL [CHEM] Routine Lab 05/22/20 12:00 Ordered TROPONIN I [CHEM] Routine Lab 05/22/20 15:00 Ordered Acetaminophen [TylenoL] Med 05/22/20 11:54 Active 650 mg PO Q4H PRN Alum Hydrox/Mag Hydrox/Simeth [Mag-Al Plus] 15 ml Med 05/22/20 12:01 Ordered Lidocaine 2% [Xylocaine 2% Viscous] 5 ml PO ONETIME Ondansetron [Zofran] Med 05/22/20 11:54 Active 4 mg IVPUSH Q4H PRN Sodium Chloride 0.9% [Saline Flush] Med 05/22/20 11:54 Active 2.5 ml FLUSH ASDIRECTED PRN Saline Lock Insert [OM.PC] Routine Oth 05/22/20 11:54 Ordered Sequential Compression Device [OM.PC] Per Unit Routine Oth 05/22/20 11:56 Ordered Resuscitation Status Routine Resus Stat 05/22/20 11:54 Ordered Medication Orders Acetaminophen (Tylenol) 650 mg PO Q4H PRN PRN Reason: Pain (Mild 1-3)/fever Al Hydroxide/Mg Hydroxide 15 (ml/ Lidocaine HCl 5 ml) 0 ml PO ONETIME ONE Stop: 05/22/20 12:02 Ondansetron HCl (Zofran) 4 mg IVPUSH Q4H PRN PRN Reason: Nausea Sodium Chloride (Saline Flush) 2.5 ml FLUSH ASDIRECTED PRN PRN Reason: Keep Vein Open Assessment/Plan Comment:: This 69 year old male admitted with atypical chest pain 1. Atypical chest pain - Monitor on telemetry - Troponin x 2 negative, will repeat x2 every 6hours - Obtain A1c, Lipid panel - Monitor BP - Arrange outpatient stress test. - Obtain ECHO - Discussed CAD management and recommending aspirin and statin at least. 2. Dyspnea - Reports dyspnea and waking up with dyspnea - Monitor pulse ox overnight - Arrange sleep study 3. Chronic back pain - Continue Morphine per home dosing and schedule VTE prophylaxis: SCDs Dispo: likely in am - Mortality Measure Prognosis:: Good
[2020-05-22] MEDS ORDERED: Morphine 15 MG Tab PO SCH (13:30)
[2020-05-22 13:44] LABS: HEMOGLOBIN A1C 5.7 % (4.5-6.2)
[2020-05-22] MEDS ORDERED: Pantoprazole 40 MG in Sodium Chloride 0.9% 10 ML IV SCH (16:30)
[2020-05-22] MEDS: Albuterol/Ipratropium 3.0-0.5 MG/3 ML Neb Soln NEB PRN ×2 (18:04→22:12)
[2020-05-22] MEDS: Morphine 15 MG Tab.ER PO SCH (20:39)
[2020-05-22] MEDS ORDERED: atorvaSTATin 20 MG Tab PO SCH (21:00)
[2020-05-22] MEDS: Morphine 15 MG Tab PO SCH (23:14)
[2020-05-23] MEDS: Morphine 15 MG Tab PO SCH (06:06)
[2020-05-23] MEDS: Morphine 15 MG Tab.ER PO SCH (08:29)
[2020-05-23] MEDS ORDERED: Aspirin 81 MG Tab.Chew PO SCH (09:00)
--- NOTE | 2020-05-23 10:42 | PCM.DCSUM1 ---
Discharge Summary - Discharge Data Discharge Date: 05/23/20 Discharge Disposition: Home, Self-Care 01 Condition: Fair - Referral to Home Health Primary Care Physician: PCP None - Patient Summary/Data Hospital Course: History of present illness: 61-year-old male with PMH of COPD, CAD, chronic narcotic use due to chronic back pain presents to ER with complaints of chest pressure and difficulty breathing along with diaphoresis. He was seen earlier this morning in the ER for similar symptoms was worked up and evaluated and discharged home. He was at home for short time and started feeling the chest pressure and shortness of breath again. He reports the pain is substernal and is dull achy in nature with no radiation. He reports associated symptoms of diaphoresis and shortness of breath. He also feels like at times he is sleeping and wakes up not breathing. He reports he does not sleep much but may be may be for approximately 30 minutes to 1 hour at a time. He reports having history of CT in the past x2 last. Denies currently taking any medications for CAD. Denies stents. Reports Angiogram and stress test in the . He denies tobacco use, alcohol use or recreational drug use. He denies any other symptoms such as fevers, chills, cough, abdominal pain or urinary concerns. Reports mild constipation, which is baseline with narcotic use. He does intermittently use o xygen In the ED CBC and BMP from this morning were negative. Troponin x 2 negative. EKG SR with no acute ischemic changes. CXR negative for acute cardiopulmonary process. He will be admitted for atypical chest pain. Hospital Course: Patient was monitored overnight without any events on telemetry. His serial cardiac enzymes were negative. His chest pain had resolved admission. He was started on an Aspirin and statin for his history of coronary artery disease. He was referred to outpatient sleep study and cardiac stress testing. He is to follow up with [facility]. - Discharge Plan Prescriptions/Med Rec: Aspirin 81 mg PO DAILY #30 tab.chew atorvaSTATin [Lipitor] 20 mg PO BEDTIME #30 tablet Home Medications: Home Meds carisoprodoL [Soma] 350 mg PO Q12HR PRN 03/20/19 [History] Morphine Sulfate [Morphine Sulfate ER] 15 mg PO BID 11/16/19 [History] Morphine Sulfate 15 mg PO BID #3 tablet 05/09/20 [Rx] Morphine Sulfate [Morphine Sulfate ER] 60 mg PO BID #3 cap.er.pel 05/09/20 [Rx] Aspirin 81 mg PO DAILY #30 tab.chew 05/23/20 [Rx] atorvaSTATin [Lipitor] 20 mg PO BEDTIME #30 tablet 05/23/20 [Rx] Referrals: PCP,None [Primary Care Provider] - - Discharge Summary/Plan Comment DC Time >30 min.: No - Patient Data Vitals - Most Recent: Last Vital Signs Temp 36.4 C 05/23/20 07:10 Pulse 67 05/23/20 07:10 Resp 19 05/23/20 07:10 BP 150/70 H 05/23/20 07:10 Pulse Ox 95 05/23/20 07:10 Weight - Most Recent: 95.753 kg I&O - Last 24 hours: Intake & Output 05/22/20 05/23/20 05/23/20 22:59 06:59 14:59 Intake Total 410 250 Output Total 700 350 Balance -290 -100 Lab Results - Last 24 hrs: Laboratory Results - last 24 hr 05/22/20 05/22/20 05/22/20 Range/Units 05:25 05:25 05:25 Hemoglobin A1c 5.7 (4.5-6.2) % Troponin I (0.000-0.056) ng/mL B-Natriuretic Peptide (<100) PG/ML Triglycerides 46 (0-200) mg/dL Cholesterol 135 (50-200) mg/dL LDL Cholesterol, Calc 78 (60-180) mg/dL VLDL Cholesterol 9 (5-55) mg/dL HDL Cholesterol 48 (40-60) mg/dL Cholesterol/HDL Ratio 2.8 L (3.3-6.0) Lipase 59 L (73-393) U/L 05/22/20 05/22/20 05/22/20 Range/Units 09:43 09:43 15:30 Hemoglobin A1c (4.5-6.2) % Troponin I < 0.050 < 0.050 (0.000-0.056) ng/mL B-Natriuretic Peptide 75 (<100) PG/ML Triglycerides (0-200) mg/dL Cholesterol (50-200) mg/dL LDL Cholesterol, Calc (60-180) mg/dL VLDL Cholesterol (5-55) mg/dL HDL Cholesterol (40-60) mg/dL Cholesterol/HDL Ratio (3.3-6.0) Lipase (73-393) U/L 05/22/20 Range/Units 21:18 Hemoglobin A1c (4.5-6.2) % Troponin I < 0.050 (0.000-0.056) ng/mL B-Natriuretic Peptide (<100) PG/ML Triglycerides (0-200) mg/dL Cholesterol (50-200) mg/dL LDL Cholesterol, Calc (60-180) mg/dL VLDL Cholesterol (5-55) mg/dL HDL Cholesterol (40-60) mg/dL Cholesterol/HDL Ratio (3.3-6.0) Lipase (73-393) U/L Med Orders - Current: Current Medications Acetaminophen (Tylenol) 650 mg PO Q4H PRN PRN Reason: Pain (Mild 1-3)/fever Albuterol/Ipratropium (Duoneb 3.0-0.5 Mg/3 Ml) 3 ml NEB Q4HRRT PRN PRN Reason: wheezing/dypsnea Last Admin: 05/22/20 22:12 Dose: 3 ml Documented by: Aspirin (Aspirin) 81 mg PO DAILY [facility] Last Admin: 05/23/20 08:29 Dose: 81 mg Documented by: Atorvastatin Calcium (Lipitor) 20 mg PO BEDTIME [facility] Last Admin: 05/22/20 20:42 Dose: 20 mg Documented by: Pantoprazole Sodium 40 mg/ (Sodium Chloride) 10 mls @ 300 mls/hr IV Q24H [facility] Last Admin: 05/22/20 16:34 Dose: 300 mls/hr Documented by: Morphine Sulfate (Ms Contin) 60 mg PO Q12HR [facility] Last Admin: 05/23/20 08:29 Dose: 60 mg Documented by: Morphine Sulfate (Morphine) 15 mg PO Q8H [facility] Last Admin: 05/23/20 06:06 Dose: 15 mg Documented by: Ondansetron HCl (Zofran) 4 mg IVPUSH Q4H PRN PRN Reason: Nausea Last Admin: 05/22/20 16:28 Dose: 4 mg Documented by: Sodium Chloride (Saline Flush) 2.5 ml FLUSH ASDIRECTED PRN PRN Reason: Keep Vein Open Discontinued Medications Aspirin (Aspirin) 324 mg PO ONETIME ONE Stop: 05/22/20 10:13 Last Admin: 05/22/20 10:15 Dose: 324 mg Documented by: Aspirin (Aspirin) Confirm Administered Dose 324 mg .ROUTE .STK-MED ONE Stop: 05/22/20 10:13 Last Admin: 05/22/20 10:16 Dose: Not Given Documented by: Al Hydroxide/Mg Hydroxide 15 (ml/ Lidocaine HCl 5 ml) 0 ml PO ONETIME ONE Stop: 05/22/20 12:02 Last Admin: 05/22/20 12:56 Dose: 15 each Documented by: Famotidine (Pepcid) 20 mg IVPUSH ONETIME ONE Stop: 05/22/20 10:45 Last Admin: 05/22/20 10:49 Dose: 20 mg Documented by: Famotidine (Pepcid) Confirm Administered Dose 20 mg .ROUTE .STK-MED ONE Stop: 05/22/20 10:46 Last Admin: 05/22/20 10:52 Dose: Not Given Documented by: Morphine Sulfate (Morphine) 15 mg PO Q12H [facility] Last Admin: 05/22/20 14:00 Dose: 15 mg Documented by: Ondansetron HCl (Zofran) 4 mg IVPUSH ONETIME ONE Stop: 05/22/20 09:32 Last Admin: 05/22/20 09:47 Dose: 4 mg Documented by: Sodium Chloride (Saline Flush) 10 ml FLUSH ASDIRECTED PRN PRN Reason: Keep Vein Open Last Admin: 05/22/20 10:52 Dose: 10 ml Documented by: Sodium Chloride (Saline Flush) 2.5 ml FLUSH ASDIRECTED PRN PRN Reason: Keep Vein Open Last Admin: 05/22/20 10:55 Dose: 2.5 ml Documented by:
--- NOTE | 2020-05-26 14:12 | ECHO ---
EXAM DATE: 05/22/20 PATIENT'S AGE: 69 The ECHO report has been scanned into [facility] and can be seen in this patient's EMR (Electronic Medical Record) under the REPORTS section. The report has also been scanned into PACS. JUAN CARLOS
== END 2020-05-23 11:55 | disposition home or self-care (01) ==
LOC: MW.ED 09:16 → MW.MS 11:14
PROVIDERS: ADMIT Internal Medicine; ATTEND Internal Medicine
DX: R07.89 Other chest pain (principal); R61 Generalized hyperhidrosis; R06.02 Shortness of breath; I10 Essential (primary) hypertension; J44.9 Chronic obstructive pulmonary disease, unspecified; I25.10 Atherosclerotic heart disease of native coronary artery without angina pectoris; G89.29 Other chronic pain; M54.5 Low back pain; D50.9 Iron deficiency anemia, unspecified; I25.2 Old myocardial infarction; F11.20 Opioid dependence, uncomplicated; Z99.81 Dependence on supplemental oxygen; Z88.5 Allergy status to narcotic agent; Z88.0 Allergy status to penicillin; Z79.899 Other long term (current) drug therapy; Z87.891 Personal history of nicotine dependence; Z79.82 Long term (current) use of aspirin
CPT/HCPCS: 36415; 80061; 83036; 83690; 83880; 84484; 93005; 93306; 94640; 96374; 96375; 99285; A9270; C9113; J2405; J3490; J7050; 96376; 99283; G0378; J7620-GY

== ENCOUNTER 2020-06-16 20:10 | Emergency (ER) | payer MEDICARE ==
[2020-06-16] MEDS ORDERED: Sodium Chloride 0.9% 10 ML Syringe FLUSH PRN (20:19)
[2020-06-16] MEDS ORDERED: Sodium Chloride 0.9% 2.5 ML Syringe FLUSH PRN (20:19)
[2020-06-16] MEDS ORDERED: Albuterol/Ipratropium 3.0-0.5 MG/3 ML Neb Soln NEB ONE (20:19)
[2020-06-16] MEDS ORDERED: Sodium Chloride 0.9% 1,000 ML IV ONE (20:19)
--- NOTE | 2020-06-16 20:24 | EDM.PDOC ---
ED HPI GENERAL MEDICAL PROBLEM - General Stated Complaint: TROUBLE BREATHING-EMS Time Seen by Provider: 06/16/20 20:11 Source of Information: Reports: Patient History Limitations: Reports: No Limitations - History of Present Illness INITIAL COMMENTS - FREE TEXT/NARRATIVE: 69M PMHx COPD presents for difficulty swallowing. Patient is poor historian. Difficulty explaining his symptoms. States that for last several days he feels that he has to drink water to swallow. Otherwise it feels too dry. He feels SOB "always" unchanged from baseline. He has a cough always. He denies any pain, CP, abdominal pain. He's been eating ok despite feeling that it's hard to swallow. He had an EGD a few years ago. - Related Data Allergies Allergy/AdvReac Type Severity Reaction Status Date / Time codeine Allergy Dizziness Verified 06/16/20 20:24 Penicillins Allergy Rash Verified 06/16/20 20:24 Home Meds: Home Meds carisoprodoL [Soma] 350 mg PO Q12HR PRN 03/20/19 [History] Morphine Sulfate [Morphine Sulfate ER] 15 mg PO BID 11/16/19 [History] Morphine Sulfate 15 mg PO BID #3 tablet 05/09/20 [Rx] Morphine Sulfate [Morphine Sulfate ER] 60 mg PO BID #3 cap.er.pel 05/09/20 [Rx] Aspirin 81 mg PO DAILY #30 tab.chew 05/23/20 [Rx] atorvaSTATin [Lipitor] 20 mg PO BEDTIME #30 tablet 05/23/20 [Rx] Past Medical History HEENT History: Reports: Impaired Vision Cardiovascular History: Reports: CAD, Hypertension, PR. 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 [employer] [facility] Coordinator: None Hematologic History: Reports: None Immunologic History: Reports: None Oncologic (Cancer) History: Reports: None Dermatologic History: Reports: None - Infectious Disease History Infectious Disease History: Reports: None - Past Surgical History Head Surgeries/Procedures: Reports: None HEENT Surgical History: Reports: None Cardiovascular Surgical History: Reports: None Respiratory Surgical History: Reports: None GI Surgical History: Reports: Hernia, Abdominal Male Surgical History: Reports: None Endocrine Surgical History: Reports: None Neurological Surgical History: Reports: None Musculoskeletal Surgical History: Reports: None Oncologic Surgical History: Reports: None Dermatological Surgical History: Reports: None Social & Family History - Family History Family Medical History: Noncontributory - Caffeine Use Caffeine Use: Reports: Soda ED ROS GENERAL - Review of Systems Review Of Systems: Comprehensive ROS is negative, except as noted in HPI. ED EXAM, GENERAL - Physical Exam Exam: See Below Exam Limited By: No Limitations General Appearance: Alert, WD/WN, No Apparent Distress Ears: Normal External Exam Nose: Normal Inspection Throat/Mouth: Normal Inspection, Normal Lips, Normal Oropharynx, Normal Voice, No Airway Compromise Head: Atraumatic, Normocephalic Neck: Normal Inspection Respiratory/Chest: No Respiratory Distress, Lungs Clear, Normal Breath Sounds, No Accessory Muscle Use Cardiovascular: Normal Peripheral Pulses, Regular Rate, Rhythm GI/Abdominal: Soft, Non-Tender Extremities: Normal Inspection Neurological: Alert Psychiatric: Normal Affect, Normal Mood Skin Exam: Warm, Dry, Intact EKG INTERPRETATION EKG Date: 06/16/20 Time: 20:23 Rhythm: NSR Rate (Beats/Min): 93 [place]: Normal P-Wave: Present QRS: Normal ST-T: Normal QT: Normal MN/PQ Interval: 156 Course - Vital Signs Last Recorded V/S: Last Vital Signs Temp 97 F 06/16/20 20:10 Pulse 101 H 06/16/20 21:17 Resp 16 06/16/20 21:17 BP 147/90 H 06/16/20 21:17 Pulse Ox 94 L 06/16/20 21:17 - Orders/Labs/Meds Orders: Active Orders 24 hr Category Date Time Status EKG Documentation Completion [RC] STAT Care 06/16/20 20:19 Active Sodium Chloride 0.9% [Saline Flush] Med 06/16/20 20:19 Active 10 ml FLUSH ASDIRECTED PRN Sodium Chloride 0.9% [Saline Flush] Med 06/16/20 20:19 Active 2.5 ml FLUSH ASDIRECTED PRN Saline Lock Insert [OM.PC] Stat Oth 06/16/20 20:20 Ordered Medication Orders Sodium Chloride (Saline Flush) 10 ml FLUSH ASDIRECTED PRN PRN Reason: Keep Vein Open Sodium Chloride (Saline Flush) 2.5 ml FLUSH ASDIRECTED PRN PRN Reason: Keep Vein Open Labs: Laboratory Tests 06/16/20 06/16/20 Range/Units 20:35 20:52 WBC 9.76 (4.0-11.0) K/uL RBC 5.23 (4.50-5.90) M/uL Hgb 10.5 L (13.0-17.0) g/dL Hct 35.1 L (38.0-50.0) % MCV 67.1 L (80.0-98.0) fL MCH 20.1 L (27.0-32.0) pg MCHC 29.9 L (31.0-37.0) g/dL RDW Std Deviation 41.9 (28.0-62.0) fl RDW Coeff of Roger 17 H (11.0-15.0) % Plt Count 200 (150-400) K/uL MPV 10.60 (7.40-12.00) fL Neut % (Auto) 75.3 (48.0-80.0) % Lymph % (Auto) 16.1 (16.0-40.0) % [place] % (Auto) 7.8 (0.0-15.0) % Eos % (Auto) 0.4 (0.0-7.0) % Baso % (Auto) 0.4 (0.0-1.5) % Neut # (Auto) 7.4 H (1.4-5.7) K/uL Lymph # (Auto) 1.6 (0.6-2.4) K/uL [place] # (Auto) 0.8 (0.0-0.8) K/uL Eos # (Auto) 0.0 (0.0-0.7) K/uL Baso # (Auto) 0.0 (0.0-0.1) K/uL Nucleated RBC % 0.0 /100WBC Nucleated RBCs # 0 K/uL Sodium 135 L (136-148) mmol/L Potassium 4.0 (3.5-5.1) mmol/L Chloride 101 (98-107) mmol/L Carbon Dioxide 21.5 (21.0-32.0) mmol/L BUN 9 (7.0-18.0) mg/dL Creatinine 0.8 (0.8-1.3) mg/dL Est Cr Clr Drug Dosing 65.20 mL/min Estimated GFR (MDRD) > 60.0 ml/min Glucose 123 H (74-106) mg/dL Calcium 8.5 (8.5-10.1) mg/dL Magnesium 1.8 (1.8-2.4) mg/dL Total Bilirubin 0.8 (0.2-1.0) mg/dL AST 22 (15-37) IU/L ALT 25 (14-63) IU/L Alkaline Phosphatase 76 (46-116) U/L Troponin I < 0.050 (0.000-0.056) ng/mL Total Protein 7.6 (6.4-8.2) g/dL Albumin 4.0 (3.4-5.0) g/dL Globulin 3.6 (2.6-4.0) g/dL Albumin/Globulin Ratio 1.1 (0.9-1.6) Meds: Medications Generic Name Dose Route Start Last Admin Trade Name Freq PRN Reason Stop Dose Admin Sodium Chloride 10 ml 06/16/20 20:19 Saline Flush FLUSH ASDIRECTED PRN Keep Vein Open Sodium Chloride 2.5 ml 06/16/20 20:19 Saline Flush FLUSH ASDIRECTED PRN Keep Vein Open Discontinued Medications Generic Name Dose Route Start Last Admin Trade Name Freq PRN Reason Stop Dose Admin Albuterol/Ipratropium 3 ml 06/16/20 20:19 06/16/20 20:37 Duoneb 3.0-0.5 Mg/3 Ml NEB 06/16/20 20:20 3 ml ONETIME ONE Administration Sodium Chloride 1,000 mls @ 999 mls/hr 06/16/20 20:19 06/16/20 20:37 Normal Saline IV 06/16/20 21:19 999 mls/hr .Bolus ONE Administration - Re-Assessments/Exams Free Text/Narrative Re-Assessment/Exam: 06/16/20 20:23 Patient notes when he was here for similar a couple of months ago a breathing treatment really seemed to help, so will trial that. Will get labs/CXR to r/o serious pathology. Will f/u results and dispo accordingly. 06/16/20 22:17 Labs unremarkable; improved after breathing treatment. Will d/c with PMD f/u Departure - Departure Time of Disposition: 22:18 Disposition: Home, Self-Care 01 Condition: Good Clinical Impression: Shortness of breath - Discharge Information Instructions: Shortness of Breath, Adult, [id number] Additional Instructions: The following information is given to patients seen in the emergency department who are being discharged to home. This information is to outline your options for follow-up care. We provide all patients seen in our emergency department with a follow-up referral. The need for follow-up, as well as the timing and circumstances, are variable depending upon the specifics of your emergency department visit. If you don't have a primary care physician on staff, we will provide you with a referral. We always advise you to contact your personal physician following an emergency department visit to inform them of the circumstance of the visit and for follow-up with them and/or the need for any referrals to a consulting specialist. The emergency department will also refer you to a specialist when appropriate. This referral assures that you have the opportunity for follow-up care with a specialist. All of these measure are taken in an effort to provide you with optimal care, which includes your follow-up. Under all circumstances we always encourage you to contact your private physician who remains a resource for coordinating your care. When calling for follow-up care, please make the office aware that this follow-up is from your recent emergency room visit. If for any reason you are refused follow-up, please contact the [facility] Emergency Department at and asked to speak to the emergency department charge nurse. Follow up with a primary care physician in 1-3 days; if you do not already have one, you can utilize either of the below clinics and let them know you were seen in the ED and require roldan follow-up: [facility] [address], [place] [address] [facility] [address] [place] [address] Sepsis Event Note (ED) - Focused Exam Vital Signs: Vital Signs Temp Pulse Resp BP Pulse Ox 06/16/20 21:17 101 H 16 147/90 H 94 L 06/16/20 20:10 97 F 94 18 188/134 H 94 L - My Orders Last 24 Hours: My Active Orders 06/16/20 20:19 EKG Documentation Completion [RC] STAT Sodium Chloride 0.9% [Saline Flush] 10 ml FLUSH ASDIRECTED PRN Sodium Chloride 0.9% [Saline Flush] 2.5 ml FLUSH ASDIRECTED PRN 06/16/20 20:20 Saline Lock Insert [OM.PC] Stat - Assessment/Plan Last 24 Hours: My Active Orders 06/16/20 20:19 EKG Documentation Completion [RC] STAT Sodium Chloride 0.9% [Saline Flush] 10 ml FLUSH ASDIRECTED PRN Sodium Chloride 0.9% [Saline Flush] 2.5 ml FLUSH ASDIRECTED PRN 06/16/20 20:20 Saline Lock Insert [OM.PC] Stat
--- NOTE | 2020-06-16 20:51 | CR ---
Chest: Portable view of the chest was obtained. Comparison: Prior chest x-ray of 05/22/20. Stable granuloma is seen within the right lung base. Small area of scarring is noted within the lateral left costophrenic angle. Lungs otherwise are clear with no acute parenchymal change. Degenerative change is noted within the spine with mild scoliosis. Previous cervical spine surgery is noted. Impression: 1. Findings as noted above. 2. Nothing acute is appreciated on portable chest x-ray. Diagnostic code #2 This report was dictated in MDT
[2020-06-16 21:10] LABS: BLOOD UREA NITROGEN,BUN 9 mg/dL (7.0-18.0); CARBON DIOXIDE,CO2 21.5 mmol/L (21.0-32.0); CHLORIDE,CL 101 mmol/L (98-107); GLUCOSE RANDOM 123 mg/dL (74-106); SODIUM,NA 135 mmol/L (136-148)
== END 2020-06-16 22:31 | disposition home or self-care (01) ==
LOC: MW.ED 20:10
DX: R06.02 Shortness of breath (principal); J44.9 Chronic obstructive pulmonary disease, unspecified; I10 Essential (primary) hypertension; I25.10 Atherosclerotic heart disease of native coronary artery without angina pectoris; I25.2 Old myocardial infarction; Z88.5 Allergy status to narcotic agent; Z79.82 Long term (current) use of aspirin; Z88.0 Allergy status to penicillin
CPT/HCPCS: 36415; 71045; 80053; 83735; 84484; 85025; 93005; 96360; 99285; J7030; 99283; J7620-GY

== ENCOUNTER 2020-07-09 19:23 | Emergency (ER) | payer MEDICARE ==
[2020-07-09] MEDS ORDERED: Ondansetron 4 MG/2 ML SDV IVPUSH ONE (19:48)
[2020-07-09] MEDS ORDERED: Sodium Chloride 0.9% 1,000 ML IV ONE (19:48)
--- NOTE | 2020-07-09 20:00 | EDM.PDOC ---
ED HPI GENERAL MEDICAL PROBLEM - General Chief Complaint: Gastrointestinal Problem Stated Complaint: vomiting Time Seen by Provider: 07/09/20 19:39 Source of Information: Reports: Patient History Limitations: Reports: No Limitations - History of Present Illness INITIAL COMMENTS - FREE TEXT/NARRATIVE: HISTORY AND PHYSICAL: History of present illness: Patient is a 69-year-old male who presents to the emergency room with complaints of nausea, vomiting, generalized weakness and feeling shaky. He states his throat feels "so dry... I'm constantly having to drink water". Patient denies any fever, chills, headache, change in vision, syncope or near syncope. Denies any chest pain, back pain, shortness of breath or cough. Denies any abdominal pain, diarrhea, constipation or dysuria. Has not noted any blood in urine or stool. Patient has not been eating as much, due to decreased appetite - but has been drinking appropriately. Review of systems: As per history of present illness and below otherwise all systems reviewed and negative. Past medical history: As per history of present illness and as reviewed below otherwise noncontributory. Surgical history: As per history of present illness and as reviewed below otherwise noncontributory. Social history: See social history for further information Family history: As per history of present illness and as reviewed below otherwise noncontributory. Physical exam: General: Well developed and well nourished. Alert and orientated x 3. Nontoxic in appearance and in no acute distress. Vital signs are stable and have been reviewed by me. Nursing notes were reviewed. HEENT: Atraumatic, normocephalic, pupils equal and reactive bilaterally, negative for conjunctival pallor or scleral icterus, mucous membranes moist, TMs normal bilaterally, throat clear, no fullness/redness or pillar shifting. His neck supple, nontender, trachea midline. No drooling or trismus noted. No meningeal signs. No hot potato voice noted. Lungs: Clear to auscultation, breath sounds equal bilaterally, chest nontender. Normal work of breathing, no accessory muscles used. Heart: S1S2, regular rate and rhythm without overt murmur Abdomen: Soft, nondistended, nontender. Negative for masses or hepatosplenomegaly. Negative for costovertebral tenderness. Pelvis: Stable nontender. Skin: Intact, warm, dry. No lesions or rashes noted. Hematologic: No petechiae or purpra. Mucosa appropriate color and normal nail bed color and refill. Extremities: Atraumatic, moves all extremities per self without difficulty or deficits, negative for cords or calf pain. Neurovascular unremarkable. Neuro: Awake, alert, oriented. Cranial nerves II through XII unremarkable. Cerebellum unremarkable. Motor and sensory unremarkable throughout. Exam nonfocal. Psychiatric: Mood and affect are appropriate. Normal thought process. Answering questions appropriately. Notes: Patient declines the Zofran, stating that he and had doctor think the Zofran is what causes him to have such a dry mouth (acute on chronic problem). Lab work is unremarkable. He feels improved after the fluids and Zofran. He has had no vomiting while here. he states he has an appointment tomorrow with his primary care provider. I have spoken with the patient/caregiver and discussed today's findings, in addition to providing specific details for plan of care. Reassessment at the time of disposition demonstrates that the patient is in no acute distress. The patient has remained stable throughout the entire ED visit and is without objective evidence for acute process requiring urgent intervention or hospitalization. The patient is stable for discharge, counseling was provided and we discussed in great detail signs and symptoms that would prompt them to return to the Emergency Department. Medication, follow up and supportive care measures were reviewed and discussed. Voices understanding and is agreeable to plan of care. Denies any further questions or concerns at this time. Diagnostics: CBC, CMP, Lipase, UA, CXR Therapeutics: IV fluids Prescription: None Impression: Nausea and vomiting Plan: 1. Today your lab work was within normal limits. 2. Continue taking your home medications and follow-up with your primary care provider tomorrow as you already have arranged. 3. If your symptoms should worsen, new symptoms develop or any of the signs and symptoms we discussed should arise please return to the emergency room or call 911 (if needed). Definitive disposition and diagnosis as appropriate pending reevaluation and review of above. - Related Data Allergies Allergy/AdvReac Type Severity Reaction Status Date / Time codeine Allergy Dizziness Verified 07/09/20 19:35 Penicillins Allergy Rash Verified 07/09/20 19:35 Home Meds: Home Meds carisoprodoL [Soma] 350 mg PO Q12HR PRN 03/20/19 [History] Morphine Sulfate [Morphine Sulfate ER] 15 mg PO BID 11/16/19 [History] Morphine Sulfate 15 mg PO BID #3 tablet 05/09/20 [Rx] Morphine Sulfate [Morphine Sulfate ER] 60 mg PO BID #3 cap.er.pel 05/09/20 [Rx] Aspirin 81 mg PO DAILY #30 tab.chew 05/23/20 [Rx] atorvaSTATin [Lipitor] 20 mg PO BEDTIME #30 tablet 05/23/20 [Rx] Past Medical History HEENT History: Reports: Impaired Vision Cardiovascular History: Reports: CAD, Hypertension, CO Respiratory History: Reports: COPD, Other (See Below) Other Respiratory History: O2 at home Gastrointestinal History: Reports: None Genitourinary History: Reports: None Musculoskeletal History: Reports: Back Pain, Chronic Other Musculoskeletal History: neck pain Neurological History: Reports: None Psychiatric History: Reports: None Endocrine/Metabolic History: Reports: None 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 Chemistry Lab Instructor: None Hematologic History: Reports: None Immunologic History: Reports: None Oncologic (Cancer) History: Reports: None Dermatologic History: Reports: None - Infectious Disease History Infectious Disease History: Reports: None - Past Surgical History Head Surgeries/Procedures: Reports: None HEENT Surgical History: Reports: None Cardiovascular Surgical History: Reports: None Respiratory Surgical History: Reports: None GI Surgical History: Reports: Hernia, Abdominal Male Surgical History: Reports: None Endocrine Surgical History: Reports: None Neurological Surgical History: Reports: None Musculoskeletal Surgical History: Reports: None Oncologic Surgical History: Reports: None Dermatological Surgical History: Reports: None Social & Family History - Family History Family Medical History: Noncontributory - Tobacco Use Smoking Status *Q: Never Smoker - Caffeine Use Caffeine Use: Reports: Soda - Recreational Drug Use Recreational Drug Use: No ED ROS GENERAL - Review of Systems Review Of Systems: Comprehensive ROS is negative, except as noted in HPI. ED EXAM, GI/ABD - Physical Exam Exam: See Below (See dictation) Course - Vital Signs Last Recorded V/S: Last Vital Signs Temp 96.9 F 07/09/20 19:32 Pulse 109 H 07/09/20 19:32 Resp 22 H 07/09/20 19:32 BP 149/94 H 07/09/20 19:32 Pulse Ox 96 07/09/20 19:32 - Orders/Labs/Meds Orders: Active Orders 24 hr Category Date Time Status RT Aerosol Therapy [RC] ASDIRECTED Care 07/09/20 20:41 Active Labs: Laboratory Tests 07/09/20 07/09/20 07/09/20 Range/Units 20:20 20:20 20:20 WBC 7.60 (4.0-11.0) K/uL RBC 5.41 (4.50-5.90) M/uL Hgb 10.8 L (13.0-17.0) g/dL Hct 36.6 L (38.0-50.0) % MCV 67.7 L (80.0-98.0) fL MCH 20.0 L (27.0-32.0) pg MCHC 29.5 L (31.0-37.0) g/dL RDW Std Deviation 41.4 (28.0-62.0) fl RDW Coeff of Orger 17 H (11.0-15.0) % Plt Count 282 (150-400) K/uL Neut % (Auto) 78.3 (48.0-80.0) % Lymph % (Auto) 16.6 (16.0-40.0) % [place] % (Auto) 4.5 (0.0-15.0) % Eos % (Auto) 0.1 (0.0-7.0) % Baso % (Auto) 0.5 (0.0-1.5) % Neut # (Auto) 6.0 H (1.4-5.7) K/uL Lymph # (Auto) 1.3 (0.6-2.4) K/uL [place] # (Auto) 0.3 (0.0-0.8) K/uL Eos # (Auto) 0.0 (0.0-0.7) K/uL Baso # (Auto) 0.0 (0.0-0.1) K/uL Nucleated RBC % 0.0 /100WBC Nucleated RBCs # 0 K/uL Lactate 1.7 (0.20-2.00) mmol/L Sodium 137 (136-148) mmol/L Potassium 3.7 (3.5-5.1) mmol/L Chloride 103 (98-107) mmol/L Carbon Dioxide 22.4 (21.0-32.0) mmol/L BUN 9 (7.0-18.0) mg/dL Creatinine 0.9 (0.8-1.3) mg/dL Est Cr Clr Drug Dosing 86.22 mL/min Estimated GFR (MDRD) > 60.0 ml/min Glucose 120 H (74-106) mg/dL Calcium 8.9 (8.5-10.1) mg/dL Total Bilirubin 0.8 (0.2-1.0) mg/dL AST 19 (15-37) IU/L ALT 24 (14-63) IU/L Alkaline Phosphatase 62 (46-116) U/L Total Protein 7.3 (6.4-8.2) g/dL Albumin 3.9 (3.4-5.0) g/dL Globulin 3.4 (2.6-4.0) g/dL Albumin/Globulin Ratio 1.1 (0.9-1.6) Lipase 54 L (73-393) U/L Urine Color Urine Appearance Urine pH (5.0-8.0) Ur Specific [place] (1.001-1.035) Urine Protein (NEGATIVE) mg/dL Urine Glucose (UA) (NEGATIVE) mg/dL Urine Ketones (NEGATIVE) mg/dL Urine Occult Blood (NEGATIVE) Urine Nitrite (NEGATIVE) Urine Bilirubin (NEGATIVE) Urine Urobilinogen (<2.0) EU/dL Ur Leukocyte Esterase (NEGATIVE) Urine RBC (0-2/HPF) Urine WBC (0-5/HPF) Ur Epithelial Cells (NONE-FEW) Urine Bacteria (NEGATIVE) Urine Mucus (NONE-MOD) 07/09/20 Range/Units 21:10 WBC (4.0-11.0) K/uL RBC (4.50-5.90) M/uL Hgb (13.0-17.0) g/dL Hct (38.0-50.0) % MCV (80.0-98.0) fL MCH (27.0-32.0) pg MCHC (31.0-37.0) g/dL RDW Std Deviation (28.0-62.0) fl RDW Coeff of Roger (11.0-15.0) % Plt Count (150-400) K/uL Neut % (Auto) (48.0-80.0) % Lymph % (Auto) (16.0-40.0) % [place] % (Auto) (0.0-15.0) % Eos % (Auto) (0.0-7.0) % Baso % (Auto) (0.0-1.5) % Neut # (Auto) (1.4-5.7) K/uL Lymph # (Auto) (0.6-2.4) K/uL [place] # (Auto) (0.0-0.8) K/uL Eos # (Auto) (0.0-0.7) K/uL Baso # (Auto) (0.0-0.1) K/uL Nucleated RBC % /100WBC Nucleated RBCs # K/uL Lactate (0.20-2.00) mmol/L Sodium (136-148) mmol/L Potassium (3.5-5.1) mmol/L Chloride (98-107) mmol/L Carbon Dioxide (21.0-32.0) mmol/L BUN (7.0-18.0) mg/dL Creatinine (0.8-1.3) mg/dL Est Cr Clr Drug Dosing mL/min Estimated GFR (MDRD) ml/min Glucose (74-106) mg/dL Calcium (8.5-10.1) mg/dL Total Bilirubin (0.2-1.0) mg/dL AST (15-37) IU/L ALT (14-63) IU/L Alkaline Phosphatase (46-116) U/L Total Protein (6.4-8.2) g/dL Albumin (3.4-5.0) g/dL Globulin (2.6-4.0) g/dL Albumin/Globulin Ratio (0.9-1.6) Lipase (73-393) U/L Urine Color YELLOW Urine Appearance HAZY Urine pH 7.0 (5.0-8.0) Ur Specific [place] 1.015 (1.001-1.035) Urine Protein NEGATIVE (NEGATIVE) mg/dL Urine Glucose (UA) NEGATIVE (NEGATIVE) mg/dL Urine Ketones 40 H (NEGATIVE) mg/dL Urine Occult Blood TRACE-INTACT H (NEGATIVE) Urine Nitrite NEGATIVE (NEGATIVE) Urine Bilirubin NEGATIVE (NEGATIVE) Urine Urobilinogen 1.0 (<2.0) EU/dL Ur Leukocyte Esterase NEGATIVE (NEGATIVE) Urine RBC NONE SEEN (0-2/HPF) Urine WBC 0-1 (0-5/HPF) Ur Epithelial Cells RARE (NONE-FEW) Urine Bacteria RARE (NEGATIVE) Urine Mucus LIGHT (NONE-MOD) Meds: Medications Discontinued Medications Generic Name Dose Route Start Last Admin Trade Name Ivory PRN Reason Stop Dose Admin Albuterol/Ipratropium 3 ml 07/09/20 20:41 07/09/20 20:50 Duoneb 3.0-0.5 Mg/3 Ml NEB 07/09/20 20:42 3 ml ONETIME ONE Administration Sodium Chloride 1,000 mls @ 999 mls/hr 07/09/20 19:48 07/09/20 20:43 Normal Saline IV 07/09/20 20:48 999 mls/hr STAT ONE Administration Ondansetron HCl 4 mg 07/09/20 19:48 Zofran IVPUSH 07/09/20 19:49 ONETIME ONE Promethazine HCl 25 mg 07/09/20 20:20 07/09/20 20:43 Phenergan IM 07/09/20 20:21 25 mg ONETIME ONE Administration Departure - Departure Time of Disposition: 21:36 Disposition: Home, Self-Care 01 Clinical Impression: Nausea and vomiting Qualifiers: Vomiting type: unspecified Vomiting Intractability: non-intractable Qualified Code(s): R11.2 - Nausea with vomiting, unspecified - Discharge Information Instructions: Nausea, Adult, [id number] Referrals: PCP,None [Primary Care Provider] - Forms: ED Department Discharge Additional Instructions: The following information is given to patients seen in the emergency department who are being discharged to home. This information is to outline your options for follow-up care. We provide all patients seen in our emergency department with a follow-up referral. The need for follow-up, as well as the timing and circumstances, are variable depending upon the specifics of your emergency department visit. If you don't have a primary care physician on staff, we will provide you with a referral. We always advise you to contact your personal physician following an emergency department visit to inform them of the circumstance of the visit and for follow-up with them and/or the need for any referrals to a consulting specialist. The emergency department will also refer you to a specialist when appropriate. This referral assures that you have the opportunity for follow-up care with a specialist. All of these measure are taken in an effort to provide you with optimal care, which includes your follow-up. Under all circumstances we always encourage you to contact your private physician who remains a resource for coordinating your care. When calling for follow-up care, please make the office aware that this follow-up is from your recent emergency room visit. If for any reason you are refused follow-up, please contact the [facility] Emergency Department at and asked to speak to the emergency department charge nurse. [facility] Primary [facility] [address] [place] [id number] [facility] [address] [place] [id number] Thank you for choosing the [facility] emergency department in [place] for your medical needs today. It was a pleasure caring for you. Today you were seen in the emergency department for nausea and vomiting 1. Today your lab work was within normal limits. 2. Continue taking your home medications and follow-up with your primary care provider tomorrow as you already have arranged. 3. If your symptoms should worsen, new symptoms develop or any of the signs and symptoms we discussed should arise please return to the emergency room or call 911 (if needed). Sepsis Event Note (ED) - Evaluation Sepsis Screening Result: Possible Sepsis Risk - Focused Exam Vital Signs: Vital Signs Temp Pulse Resp BP Pulse Ox 07/09/20 19:32 96.9 F 109 H 22 H 149/94 H 96 - My Orders Last 24 Hours: My Active Orders 07/09/20 20:41 RT Aerosol Therapy [RC] ASDIRECTED - Assessment/Plan Last 24 Hours: My Active Orders 07/09/20 20:41 RT Aerosol Therapy [RC] ASDIRECTED
[2020-07-09] MEDS ORDERED: Promethazine 25 MG/ML SDV IM ONE (20:20)
[2020-07-09] MEDS ORDERED: Albuterol/Ipratropium 3.0-0.5 MG/3 ML Neb Soln NEB ONE (20:41)
--- NOTE | 2020-07-09 20:48 | CR ---
INDICATION: Dyspnea COMPARISON: June 16, 2020 TECHNIQUE: PA and lateral views of the chest were acquired FINDINGS: TUBES AND LINES: None. HEART AND MEDIASTINUM: The heart size is normal. The mediastinal contour appears normal for patient age. LUNGS AND PLEURAL SPACES: Granuloma in the right lower lobe. The lungs are otherwise unremarkable.There pleural spaces are unremarkable. OSSEOUS STRUCTURES: Degenerative changes and postsurgical changes. No acute focal findings. IMPRESSION: No evidence of active pulmonary disease. Dictated by Steven Eubanks MD @ Jul 09 2020 8:46PM Signed by Dr. Steven Eubanks @ Jul 09 2020 8:48PM
[2020-07-09 20:58] LABS: BLOOD UREA NITROGEN,BUN 9 mg/dL (7.0-18.0); CARBON DIOXIDE,CO2 22.4 mmol/L (21.0-32.0); CHLORIDE,CL 103 mmol/L (98-107); GLUCOSE RANDOM 120 mg/dL (74-106); LIPASE 54 U/L (73-393); POTASSIUM,K 3.7 mmol/L (3.5-5.1); SODIUM,NA 137 mmol/L (136-148)
== END 2020-07-09 22:50 | disposition home or self-care (01) ==
LOC: MW.ED 19:23
DX: R11.2 Nausea with vomiting, unspecified (principal); I25.10 Atherosclerotic heart disease of native coronary artery without angina pectoris; I10 Essential (primary) hypertension; I25.2 Old myocardial infarction; J44.9 Chronic obstructive pulmonary disease, unspecified; Z99.81 Dependence on supplemental oxygen; Z88.5 Allergy status to narcotic agent; Z88.0 Allergy status to penicillin; Z79.82 Long term (current) use of aspirin; Z79.899 Other long term (current) drug therapy
CPT/HCPCS: 71045; 80053; 81001; 83605; 83690; 85025; 96360; 96372; 99285; J2550; J7030; 99283; J7620-GY

== ENCOUNTER 2020-08-03 13:17 | Emergency (ER) | payer MEDICARE ==
[2020-08-03] MEDS ORDERED: Acetaminophen 500 MG Tab PO ONE (13:25)
[2020-08-03] MEDS ORDERED: Ketorolac 15 MG/ML SDV IVPUSH ONE (13:25)
[2020-08-03] MEDS ORDERED: Sodium Chloride 0.9% 1,000 ML IV ONE (13:25)
[2020-08-03] MEDS ORDERED: Sodium Chloride 0.9% 2.5 ML Syringe FLUSH PRN (13:25)
[2020-08-03] MEDS ORDERED: Sodium Chloride 0.9% 10 ML Syringe FLUSH PRN (13:25)
--- NOTE | 2020-08-03 13:27 | EDM.PDOC ---
ED HPI GENERAL MEDICAL PROBLEM - General Chief Complaint: Respiratory Problem Stated Complaint: STOMACH PAIN Time Seen by Provider: 08/03/20 13:19 Source of Information: Reports: Patient History Limitations: Reports: No Limitations - History of Present Illness INITIAL COMMENTS - FREE TEXT/NARRATIVE: 70-year-old male past medical history of hypertension, COPD, chronic opioid use presents for shortness of breath, chest pain, subjective fevers, difficulty swallowing. He is noted the difficult swallowing for several months, seems to be worsening. States that he can only swallow if he has water. He also has difficulty swallowing when laying down. He notes a cough productive of white phlegm. Denies abdominal pain. - Related Data Allergies Allergy/AdvReac Type Severity Reaction Status Date / Time codeine Allergy Dizziness Verified 07/09/20 19:35 Penicillins Allergy Rash Verified 07/09/20 19:35 Home Meds: Home Meds carisoprodoL [Soma] 350 mg PO Q12HR PRN 03/20/19 [History] Morphine Sulfate [Morphine Sulfate ER] 15 mg PO BID 11/16/19 [History] Morphine Sulfate 15 mg PO BID #3 tablet 05/09/20 [Rx] Morphine Sulfate [Morphine Sulfate ER] 60 mg PO BID #3 cap.er.pel 05/09/20 [Rx] Aspirin 81 mg PO DAILY #30 tab.chew 05/23/20 [Rx] atorvaSTATin [Lipitor] 20 mg PO BEDTIME #30 tablet 05/23/20 [Rx] Past Medical History HEENT History: Reports: Impaired Vision Cardiovascular History: Reports: CAD, Hypertension, PR Respiratory History: Reports: COPD, Other (See Below) Other Respiratory History: O2 at home Gastrointestinal History: Reports: None Genitourinary History: Reports: None Musculoskeletal History: Reports: Back Pain, Chronic Other Musculoskeletal History: neck pain Neurological History: Reports: None Psychiatric History: Reports: None Endocrine/Metabolic History: Reports: None 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 Data Management Consultant: None Hematologic History: Reports: None Immunologic History: Reports: None Oncologic (Cancer) History: Reports: None Dermatologic History: Reports: None - Infectious Disease History Infectious Disease History: Reports: None - Past Surgical History Head Surgeries/Procedures: Reports: None HEENT Surgical History: Reports: None Cardiovascular Surgical History: Reports: None Respiratory Surgical History: Reports: None GI Surgical History: Reports: Hernia, Abdominal Male Surgical History: Reports: None Endocrine Surgical History: Reports: None Neurological Surgical History: Reports: None Musculoskeletal Surgical History: Reports: None Oncologic Surgical History: Reports: None Dermatological Surgical History: Reports: None Social & Family History - Family History Family Medical History: Noncontributory - Tobacco Use Tobacco Use Status *Q: Unknown Ever Used Tobacco - Caffeine Use Caffeine Use: Reports: Soda - Recreational Drug Use Recreational Drug Use: No ED ROS GENERAL - Review of Systems Review Of Systems: Comprehensive ROS is negative, except as noted in HPI. ED EXAM, GENERAL - Physical Exam Exam: See Below Exam Limited By: No Limitations General Appearance: Alert, WD/WN, No Apparent Distress Ears: Normal External Exam Nose: Normal Inspection Throat/Mouth: Normal Voice, No Airway Compromise Head: Atraumatic, Normocephalic Neck: Normal Inspection, Other (No stridor) Respiratory/Chest: No Respiratory Distress, Lungs Clear, Normal Breath Sounds, No Accessory Muscle Use Cardiovascular: Normal Peripheral Pulses, Regular Rate, Rhythm Extremities: Normal Inspection Neurological: Alert Psychiatric: Normal Affect, Normal Mood Skin Exam: Warm, Dry, Intact, Normal Color #1 Interpretation EKG Date: 08/03/20 Time: 01:33 Rhythm: Other (sinus tachycardia) Rate (Beats/Min): 113 [place]: Normal P-Wave: Present QRS: Normal ST-T: Normal QT: Normal SD/PQ Interval: 139` Course - Vital Signs Last Recorded V/S: Last Vital Signs Temp 98.6 F 08/03/20 13:20 Pulse 95 08/03/20 14:26 Resp 18 08/03/20 14:26 BP 105/72 08/03/20 14:26 Pulse Ox 98 08/03/20 14:26 - Orders/Labs/Meds Orders: Active Orders 24 hr Category Date Time Status Cardiac Monitoring [RC] . DIRECTED Care 08/03/20 13:25 Active Pulse Oximetry [RC] ASDIRECTED Care 08/03/20 13:25 Active B-TYPE NATRIURETIC PEPTIDE,BNP [CHEM] Stat Lab 08/03/20 13:46 Received CORONAVIRUS COVID-19 PCR PHL Stat Lab 08/03/20 15:58 Received Sodium Chloride 0.9% [Saline Flush] Med 08/03/20 13:25 Active 10 ml FLUSH ASDIRECTED PRN Sodium Chloride 0.9% [Saline Flush] Med 08/03/20 13:25 Active 2.5 ml FLUSH ASDIRECTED PRN Saline Lock Insert [OM.PC] Stat Oth 08/03/20 13:25 Ordered Medication Orders Sodium Chloride (Saline Flush) 10 ml FLUSH ASDIRECTED PRN PRN Reason: Keep Vein Open Last Admin: 08/03/20 13:47 Dose: 10 ml Documented by: ASHLEY Sodium Chloride (Saline Flush) 2.5 ml FLUSH ASDIRECTED PRN PRN Reason: Keep Vein Open Last Admin: 08/03/20 13:47 Dose: 2.5 ml Documented by: ASHLEY Labs: Laboratory Tests 08/03/20 08/03/20 08/03/20 Range/Units 13:46 13:46 13:46 WBC 9.36 (4.0-11.0) K/uL RBC 5.79 (4.50-5.90) M/uL Hgb 11.7 L (13.0-17.0) g/dL Hct 39.0 (38.0-50.0) % MCV 67.4 L (80.0-98.0) fL MCH 20.2 L (27.0-32.0) pg MCHC 30.0 L (31.0-37.0) g/dL RDW Std Deviation 42.9 (28.0-62.0) fl RDW Coeff of Roger 18 H (11.0-15.0) % Plt Count 223 (150-400) K/uL Neut % (Auto) 77.4 (48.0-80.0) % Lymph % (Auto) 15.8 L (16.0-40.0) % [place] % (Auto) 6.2 (0.0-15.0) % Eos % (Auto) 0.3 (0.0-7.0) % Baso % (Auto) 0.3 (0.0-1.5) % Neut # (Auto) 7.2 H (1.4-5.7) K/uL Lymph # (Auto) 1.5 (0.6-2.4) K/uL [place] # (Auto) 0.6 (0.0-0.8) K/uL Eos # (Auto) 0.0 (0.0-0.7) K/uL Baso # (Auto) 0.0 (0.0-0.1) K/uL Nucleated RBC % 0.0 /100WBC Nucleated RBCs # 0 K/uL INR 1.11 APTT 25.8 (18.6-31.3) SEC Lactate (0.20-2.00) mmol/L Sodium 136 (136-148) mmol/L Potassium 3.5 (3.5-5.1) mmol/L Chloride 101 (98-107) mmol/L Carbon Dioxide 21.2 (21.0-32.0) mmol/L BUN 5 L (7.0-18.0) mg/dL Creatinine 0.8 (0.8-1.3) mg/dL Est Cr Clr Drug Dosing 95.65 mL/min Estimated GFR (MDRD) > 60.0 ml/min Glucose 105 (74-106) mg/dL Calcium 9.0 (8.5-10.1) mg/dL Total Bilirubin 1.3 H (0.2-1.0) mg/dL AST 19 (15-37) IU/L ALT 23 (14-63) IU/L Alkaline Phosphatase 75 (46-116) U/L Troponin I < 0.050 (0.000-0.056) ng/mL C-Reactive Protein 0.60 (0.00-0.90) mg/dL Total Protein 7.6 (6.4-8.2) g/dL Albumin 4.0 (3.4-5.0) g/dL Globulin 3.6 (2.6-4.0) g/dL Albumin/Globulin Ratio 1.1 (0.9-1.6) SARS CoV-2 RNA Rapid SHAWNA (NEGATIVE) 08/03/20 08/03/20 Range/Units 14:43 15:58 WBC (4.0-11.0) K/uL RBC (4.50-5.90) M/uL Hgb (13.0-17.0) g/dL Hct (38.0-50.0) % MCV (80.0-98.0) fL MCH (27.0-32.0) pg MCHC (31.0-37.0) g/dL RDW Std Deviation (28.0-62.0) fl RDW Coeff of Roger (11.0-15.0) % Plt Count (150-400) K/uL Neut % (Auto) (48.0-80.0) % Lymph % (Auto) (16.0-40.0) % [place] % (Auto) (0.0-15.0) % Eos % (Auto) (0.0-7.0) % Baso % (Auto) (0.0-1.5) % Neut # (Auto) (1.4-5.7) K/uL Lymph # (Auto) (0.6-2.4) K/uL [place] # (Auto) (0.0-0.8) K/uL Eos # (Auto) (0.0-0.7) K/uL Baso # (Auto) (0.0-0.1) K/uL Nucleated RBC % /100WBC Nucleated RBCs # K/uL INR APTT (18.6-31.3) SEC Lactate 1.2 (0.20-2.00) mmol/L Sodium (136-148) mmol/L Potassium (3.5-5.1) mmol/L Chloride (98-107) mmol/L Carbon Dioxide (21.0-32.0) mmol/L BUN (7.0-18.0) mg/dL Creatinine (0.8-1.3) mg/dL Est Cr Clr Drug Dosing mL/min Estimated GFR (MDRD) ml/min Glucose (74-106) mg/dL Calcium (8.5-10.1) mg/dL Total Bilirubin (0.2-1.0) mg/dL AST (15-37) IU/L ALT (14-63) IU/L Alkaline Phosphatase (46-116) U/L Troponin I (0.000-0.056) ng/mL C-Reactive Protein (0.00-0.90) mg/dL Total Protein (6.4-8.2) g/dL Albumin (3.4-5.0) g/dL Globulin (2.6-4.0) g/dL Albumin/Globulin Ratio (0.9-1.6) SARS CoV-2 RNA Rapid SHAWNA NEGATIVE (NEGATIVE) Meds: Medications Generic Name Dose Route Start Last Admin Trade Name Freq PRN Reason Stop Dose Admin Sodium Chloride 10 ml 08/03/20 13:25 08/03/20 13:47 Saline Flush FLUSH 10 ml ASDIRECTED PRN Administration Keep Vein Open Sodium Chloride 2.5 ml 08/03/20 13:25 08/03/20 13:47 Saline Flush FLUSH 2.5 ml ASDIRECTED PRN Administration Keep Vein Open Discontinued Medications Generic Name Dose Route Start Last Admin Trade Name Freq PRN Reason Stop Dose Admin Acetaminophen 1,000 mg 08/03/20 13:25 08/03/20 13:47 Tylenol Extra Strength PO 08/03/20 13:26 1,000 mg ONETIME ONE Administration Sodium Chloride 1,000 mls @ 999 mls/hr 08/03/20 13:25 08/03/20 13:47 Normal Saline IV 08/03/20 14:25 999 mls/hr .Bolus ONE Administration Ketorolac Tromethamine 15 mg 08/03/20 13:25 08/03/20 13:47 Toradol IVPUSH 08/03/20 13:26 15 mg ONETIME ONE Administration - Re-Assessments/Exams Free Text/Narrative Re-Assessment/Exam: 08/03/20 15:36 CBC is unremarkable 08/03/20 15:37 CMP is unremarkable, troponin is negative, CRP is normal, heart rate has improved to normal. 08/03/20 16:30 Covid testing is negative. Labs are grossly unremarkable. Uncertain etiology of patient's difficulty swallowing. Will discharge with follow-up primary care physician. Departure - Departure Time of Disposition: 16:31 Disposition: Home, Self-Care 01 Condition: Good Clinical Impression: Difficulty swallowing Qualifiers: Dysphagia type: unspecified Qualified Code(s): R13.10 - Dysphagia, unspecified - Discharge Information Instructions: Dysphagia Referrals: PCP,None [Primary Care Provider] - Forms: ED Department Discharge Additional Instructions: The following information is given to patients seen in the emergency department who are being discharged to home. This information is to outline your options for follow-up care. We provide all patients seen in our emergency department with a follow-up referral. The need for follow-up, as well as the timing and circumstances, are variable depending upon the specifics of your emergency department visit. If you don't have a primary care physician on staff, we will provide you with a referral. We always advise you to contact your personal physician following an emergency department visit to inform them of the circumstance of the visit and for follow-up with them and/or the need for any referrals to a consulting specialist. The emergency department will also refer you to a specialist when appropriate. This referral assures that you have the opportunity for follow-up care with a specialist. All of these measure are taken in an effort to provide you with optimal care, which includes your follow-up. Under all circumstances we always encourage you to contact your private physician who remains a resource for coordinating your care. When calling for follow-up care, please make the office aware that this follow-up is from your recent emergency room visit. If for any reason you are refused follow-up, please contact the [facility] Emergency Department at and asked to speak to the emergency department charge nurse. Please follow up with your primary care physician. If you do not have a primary care physician, see below: [facility] [address] [place] [id number] [facility] [address] [place] [id number] Sepsis Event Note (ED) - Evaluation Sepsis Screening Result: No Definite Risk - Focused Exam Vital Signs: Vital Signs Temp Pulse Resp BP Pulse Ox 08/03/20 14:26 95 18 105/72 98 08/03/20 13:20 98.6 F 113 H 19 134/81 95 - My Orders Last 24 Hours: My Active Orders 08/03/20 13:25 Cardiac Monitoring [RC] . DIRECTED Pulse Oximetry [RC] ASDIRECTED Sodium Chloride 0.9% [Saline Flush] 10 ml FLUSH ASDIRECTED PRN Sodium Chloride 0.9% [Saline Flush] 2.5 ml FLUSH ASDIRECTED PRN Saline Lock Insert [OM.PC] Stat 08/03/20 13:46 B-TYPE NATRIURETIC PEPTIDE,BNP [CHEM] Stat 08/03/20 15:58 CORONAVIRUS COVID-19 PCR PHL Stat - Assessment/Plan Last 24 Hours: My Active Orders 08/03/20 13:25 Cardiac Monitoring [RC] . DIRECTED Pulse Oximetry [RC] ASDIRECTED Sodium Chloride 0.9% [Saline Flush] 10 ml FLUSH ASDIRECTED PRN Sodium Chloride 0.9% [Saline Flush] 2.5 ml FLUSH ASDIRECTED PRN Saline Lock Insert [OM.PC] Stat 08/03/20 13:46 B-TYPE NATRIURETIC PEPTIDE,BNP [CHEM] Stat 08/03/20 15:58 CORONAVIRUS COVID-19 PCR PHL Stat
--- NOTE | 2020-08-03 14:08 | CR ---
INDICATION: Shortness of breath and chest pain TECHNIQUE: Chest 1 view COMPARISON: Single-view chest FINDINGS: There is hyperinflation and mild chronic interstitial change with basilar atelectasis versus scar. Cardiac silhouette is within normal limits. The bony thorax is grossly intact. There is no pneumothorax. IMPRESSION: Hyperinflation and chronic interstitial change without dense consolidation. Dictated by Brayden Estrella MD @ Aug 03 2020 2:06PM Signed by Dr. Brayden Estrella @ Aug 03 2020 2:07PM
[2020-08-03 15:22] LABS: BLOOD UREA NITROGEN,BUN 5 mg/dL (7.0-18.0); CARBON DIOXIDE,CO2 21.2 mmol/L (21.0-32.0); CHLORIDE,CL 101 mmol/L (98-107); GLUCOSE RANDOM 105 mg/dL (74-106); POTASSIUM,K 3.5 mmol/L (3.5-5.1); SODIUM,NA 136 mmol/L (136-148)
[2020-08-03] MEDS ORDERED: Ondansetron 4 MG Tab.DIS PO ONE (16:39)
== END 2020-08-03 16:55 | disposition home or self-care (01) ==
LOC: MW.ED 13:17
DX: R13.10 Dysphagia, unspecified (principal); R06.02 Shortness of breath; R07.9 Chest pain, unspecified; R50.9 Fever, unspecified; Z20.828 Contact with and (suspected) exposure to other viral communicable diseases; I25.2 Old myocardial infarction; I10 Essential (primary) hypertension; I25.10 Atherosclerotic heart disease of native coronary artery without angina pectoris; J44.9 Chronic obstructive pulmonary disease, unspecified; Z88.5 Allergy status to narcotic agent; Z88.0 Allergy status to penicillin; Z79.82 Long term (current) use of aspirin; Z79.899 Other long term (current) drug therapy
CPT/HCPCS: 36415; 71045; 80053; 83605; 83880; 84484; 85025; 85610; 85730; 86140; 96374; 99285; A9270; J1885; J7030; U0002; 93010; 99283

== ENCOUNTER 2020-08-05 08:36 | Emergency (ER) | payer MEDICARE ==
--- NOTE | 2020-08-05 08:52 | EDM.PDOC ---
ED HPI GENERAL MEDICAL PROBLEM - General Chief Complaint: General Stated Complaint: CHOKING Time Seen by Provider: 08/05/20 08:52 - History of Present Illness INITIAL COMMENTS - FREE TEXT/NARRATIVE: HISTORY AND PHYSICAL: History of present illness: This is 70-year-old gentleman with a history significant for COPD who presents ER today with a choking sensation that woke him up from sleep. Patient reports he has had this for several month and is currently being evaluated by his doctor for it. Patient denies any other symptomatology at this time. Patient denies any recent fevers, shakes, chills, nausea, vomiting, diarrhea, dysuria, cough, cold. Patient reports he does have a chronic cough from his COPD. Patient denies any chest pain or pressure. Patient denies any pain rating to his jaw arm or back. Patient reports that he is seen his primary care doctor yesterday and scheduled for an endoscopy. Patient reports that the symptoms usually occur at night when he is resting and sometimes it will wake him up secondary to the sensation that he cannot swallow because his throat is too dry or irritated. Review of systems: As per history of present illness and below otherwise all systems reviewed and negative. Past medical history: As per history of present illness and as reviewed below otherwise noncontributory. Surgical history: As per history of present illness and as reviewed below otherwise noncontr ibutory. Social history: No reported history of drug or alcohol abuse. Family history: As per history of present illness and as reviewed below otherwise noncontributory. Physical exam: Constitutional: Patient is oriented to person, place, and time. Appears well- developed and well-nourished. No distress. HEENT: Moist mucous membranes Head: Normocephalic and atraumatic Eyes: Right eye exhibits no discharge. Left eye exhibits no discharge. No scleral icterus Neck: Normal range of motion. No tracheal deviation present. Cardiovascular: Normal rate and regular rhythm. Pulmonary: Effort normal, no respiratory distress. Abdominal: No distention Musculoskeletal: Normal range of motion Neurologic: Alert and oriented to person, place and time. Skin: [place], warm and dry. Psychiatric: Normal mood and affect. Behavior is normal. Judgment and thought content normal. Nursing note and vital signs have been reviewed Patient's ER physical exam reveals a clear oropharynx. Patient has no stridor. Patient has no pharyngeal edema or angioedema. Patient's lungs are clear without any wheezing rales or rhonchi. Patient has no rash. Patient has no concerns for allergic reaction. Diagnostics: CBC, CMP within normal limits. Therapeutics: GI cocktail and Protonix IV with some improvement in his symptoms. Ativan 1 mg IV Assessment and plan: 70-year-old gentleman who presents with complaint of difficulty swallowing, dry throat, feeling that his throat is closing up x2 to 3 months. Patient has been seen and evaluated by his physician for the same symptoms and currently has an evaluation scheduled for endoscopy. Patient reports that he is currently not on any GI medications. Patient symptoms etiology are unclear however currently do not exhibit any signs or symptoms or require further inpatient evaluation. Patient has been given a GI cocktail as well as a proton pump inhibitor and reports that he does feel slightly improved. Patient will be sent home with a prescription for Prilosec and instructed to call To see if she can reevaluate him may be up the date of his endoscopy. Patient was also given a dose of Ativan in case this might be anxiety related. Reassessment at the time of disposition demonstrates that the patient is in no acute distress. The patient has remained stable throughout the entire ED visit and is without objective evidence for acute process requiring urgent intervention or hospitalization. The patient is stable for discharge, counseling is provided as documented above, discussed symptomatic treatment and specific conditions for return. I have spoken with the patient/caregiver and discussed todays findings, in addition to providing specific details for the plan of care. Questions are answered and there is agreement with the plan. Definitive disposition and diagnosis as appropriate pending reevaluation and review of above. chronic pain Pain Score (Numeric/FACES): 10 - Related Data Allergies Allergy/AdvReac Type Severity Reaction Status Date / Time codeine Allergy Dizziness Verified 08/05/20 08:43 Penicillins Allergy Rash Verified 08/05/20 08:43 Home Meds: Home Meds carisoprodoL [Soma] 350 mg PO Q12HR PRN 03/20/19 [History] Morphine Sulfate [Morphine Sulfate ER] 15 mg PO BID 11/16/19 [History] Morphine Sulfate 15 mg PO BID #3 tablet 05/09/20 [Rx] Morphine Sulfate [Morphine Sulfate ER] 60 mg PO BID #3 cap.er.pel 05/09/20 [Rx] Aspirin 81 mg PO DAILY #30 tab.chew 05/23/20 [Rx] atorvaSTATin [Lipitor] 20 mg PO BEDTIME #30 tablet 05/23/20 [Rx] Famotidine [Pepcid] 20 mg PO BID #60 tablet 08/05/20 [Rx] Omeprazole Magnesium [Prilosec Otc] 20 mg PO DAILY 08/05/20 [History] Past Medical History HEENT History: Reports: Impaired Vision Cardiovascular History: Reports: CAD, Hypertension, HI Respiratory History: Reports: COPD, Other (See Below) Other Respiratory History: O2 at home Gastrointestinal History: Reports: None Genitourinary History: Reports: None Musculoskeletal History: Reports: Back Pain, Chronic Other Musculoskeletal History: neck pain Neurological History: Reports: None Psychiatric History: Reports: None Endocrine/Metabolic History: Reports: None 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 Occasional Babysitter: None Hematologic History: Reports: None Immunologic History: Reports: None Oncologic (Cancer) History: Reports: None Dermatologic History: Reports: None - Infectious Disease History Infectious Disease History: Reports: Chicken Pox, Measles - Past Surgical History Head Surgeries/Procedures: Reports: None HEENT Surgical History: Reports: None Cardiovascular Surgical History: Reports: None Respiratory Surgical History: Reports: None GI Surgical History: Reports: Hernia, Abdominal Male Surgical History: Reports: None Endocrine Surgical History: Reports: None Neurological Surgical History: Reports: None Musculoskeletal Surgical History: Reports: None Oncologic Surgical History: Reports: None Dermatological Surgical History: Reports: None Social & Family History - Family History Family Medical History: Noncontributory - Tobacco Use Tobacco Use Status *Q: Former Tobacco User Used Tobacco, but Quit: Yes Month/Year Tobacco Last Used: 2009 - Caffeine Use Caffeine Use: Reports: Coffee - Recreational Drug Use Recreational Drug Use: No ED ROS GENERAL - Review of Systems Review Of Systems: See Below ED EXAM, GENERAL - Physical Exam Exam: See Below #2 Interpretation EKG Interpretation Comments: EKG: Normal sinus rhythm heart rate of [address]-T wave abnormalities Normal axis No evidence of ST elevation HI As interpreted by ER physician: Kel[place] Course - Vital Signs Last Recorded V/S: Last Vital Signs Temp 97.2 F 08/05/20 08:41 Pulse 119 H 08/05/20 08:41 Resp 20 08/05/20 08:41 BP 156/100 H 08/05/20 08:41 Pulse Ox 99 08/05/20 08:41 - Orders/Labs/Meds Orders: Active Orders 24 hr Category Date Time Status Sodium Chloride 0.9% [Saline Flush] Med 08/05/20 09:00 Active 10 ml FLUSH ASDIRECTED PRN Sodium Chloride 0.9% [Saline Flush] Med 08/05/20 09:00 Active 2.5 ml FLUSH ASDIRECTED PRN Saline Lock Insert [OM.PC] Stat Oth 08/05/20 09:00 Ordered Medication Orders Sodium Chloride (Saline Flush) 10 ml FLUSH ASDIRECTED PRN PRN Reason: Keep Vein Open Last Admin: 08/05/20 09:19 Dose: 10 ml Documented by: LENORE Sodium Chloride (Saline Flush) 2.5 ml FLUSH ASDIRECTED PRN PRN Reason: Keep Vein Open Last Admin: 08/05/20 09:20 Dose: 2.5 ml Documented by: LENORE Labs: Laboratory Tests 08/05/20 08/05/20 Range/Units 08:55 08:55 WBC 12.23 H (4.0-11.0) K/uL RBC 5.61 (4.50-5.90) M/uL Hgb 11.4 L (13.0-17.0) g/dL Hct 38.6 (38.0-50.0) % MCV 68.8 L (80.0-98.0) fL MCH 20.3 L (27.0-32.0) pg MCHC 29.5 L (31.0-37.0) g/dL RDW Std Deviation 43.7 (28.0-62.0) fl RDW Coeff of Roger 18 H (11.0-15.0) % Plt Count 240 (150-400) K/uL MPV 10.70 (7.40-12.00) fL Neut % (Auto) 75.1 (48.0-80.0) % Lymph % (Auto) 16.6 (16.0-40.0) % [place] % (Auto) 7.0 (0.0-15.0) % Eos % (Auto) 0.9 (0.0-7.0) % Baso % (Auto) 0.4 (0.0-1.5) % Neut # (Auto) 9.2 H (1.4-5.7) K/uL Lymph # (Auto) 2.0 (0.6-2.4) K/uL [place] # (Auto) 0.9 H (0.0-0.8) K/uL Eos # (Auto) 0.1 (0.0-0.7) K/uL Baso # (Auto) 0.1 (0.0-0.1) K/uL Nucleated RBC % 0.0 /100WBC Nucleated RBCs # 0 K/uL Sodium 137 (136-148) mmol/L Potassium 4.6 (3.5-5.1) mmol/L Chloride 102 (98-107) mmol/L Carbon Dioxide 24.0 (21.0-32.0) mmol/L BUN 6 L (7.0-18.0) mg/dL Creatinine 1.0 (0.8-1.3) mg/dL Est Cr Clr Drug Dosing 76.52 mL/min Estimated GFR (MDRD) > 60.0 ml/min Glucose 136 H (74-106) mg/dL Calcium 8.8 (8.5-10.1) mg/dL Total Bilirubin 1.0 (0.2-1.0) mg/dL AST 17 (15-37) IU/L ALT 22 (14-63) IU/L Alkaline Phosphatase 73 (46-116) U/L Total Protein 7.3 (6.4-8.2) g/dL Albumin 3.8 (3.4-5.0) g/dL Globulin 3.5 (2.6-4.0) g/dL Albumin/Globulin Ratio 1.1 (0.9-1.6) Lipase 56 L (73-393) U/L Meds: Medications Generic Name Dose Route Start Last Admin Trade Name Freq PRN Reason Stop Dose Admin Sodium Chloride 10 ml 08/05/20 09:00 08/05/20 09:19 Saline Flush FLUSH 10 ml ASDIRECTED PRN Administration Keep Vein Open Sodium Chloride 2.5 ml 08/05/20 09:00 08/05/20 09:20 Saline Flush FLUSH 2.5 ml ASDIRECTED PRN Administration Keep Vein Open Discontinued Medications Generic Name Dose Route Start Last Admin Trade Name Freq PRN Reason Stop Dose Admin Al Hydroxide/Mg Hydroxide 15 0 ml 08/05/20 09:00 08/05/20 09:17 ml/ Lidocaine HCl 5 ml PO 08/05/20 09:01 1 each ONETIME ONE Administration Sodium Chloride 1,000 mls @ 999 mls/hr 08/05/20 09:00 08/05/20 09:18 Normal Saline IV 08/05/20 10:00 999 mls/hr .Bolus ONE Administration Pantoprazole Sodium 40 mg/ 10 mls @ 300 mls/hr 08/05/20 09:00 08/05/20 09:18 Sodium Chloride IV 08/05/20 09:01 300 mls/hr NOW ONE Administration Lorazepam 1 mg 08/05/20 09:04 08/05/20 09:18 Ativan IVPUSH 08/05/20 09:05 1 mg ONETIME ONE Administration Departure - Departure Time of Disposition: :01 Disposition: Home, Self-Care 01 Condition: Good Clinical Impression: Globus pharyngeus, GERD (gastroesophageal reflux disease), Anxiety, COPD (chronic obstructive pulmonary disease) - Discharge Information Instructions: Gastroesophageal Reflux Disease, Adult, [id number] Referrals: PCP,None [Primary Care Provider] - Forms: ED Department Discharge Additional Instructions: You were seen and evaluated in the ER today secondary to sensations you are having in your throat. The etiology of the symptoms are unclear however they appear to that they may be secondary to GERD. You will be started on Prilosec to take daily and will need to call your doctor for an appointment for reevaluation. The following information is given to patients seen in the emergency department who are being discharged to home. This information is to outline your options for follow-up care. We provide all patients seen in our emergency department with a follow-up referral. The need for follow-up, as well as the timing and circumstances, are variable depending upon the specifics of your emergency department visit. If you don't have a primary care physician on staff, we will provide you with a referral. We always advise you to contact your personal physician following an emergency department visit to inform them of the circumstance of the visit and for follow-up with them and/or the need for any referrals to a consulting specialist. The emergency department will also refer you to a specialist when appropriate. This referral assures that you have the opportunity for follow-up care with a specialist. All of these measure are taken in an effort to provide you with optimal care, which includes your follow-up. [facility] [address] [place] [address] [facility] [address] [place] [address] Under all circumstances we always encourage you to contact your private physician who remains a resource for coordinating your care. When calling for follow-up care, please make the office aware that this follow-up is from your recent emergency room visit. If for any reason you are refused follow-up, please contact the [facility] Emergency Department at and asked to speak to the emergency department charge nurse. Sepsis Event Note (ED) - Evaluation Sepsis Screening Result: No Definite Risk - Focused Exam Vital Signs: Vital Signs Temp Pulse Resp BP Pulse Ox 08/05/20 08:41 97.2 F 119 H 20 156/100 H 99 - My Orders Last 24 Hours: My Active Orders 08/05/20 09:00 Sodium Chloride 0.9% [Saline Flush] 10 ml FLUSH ASDIRECTED PRN Sodium Chloride 0.9% [Saline Flush] 2.5 ml FLUSH ASDIRECTED PRN Saline Lock Insert [OM.PC] Stat - Assessment/Plan Last 24 Hours: My Active Orders 08/05/20 09:00 Sodium Chloride 0.9% [Saline Flush] 10 ml FLUSH ASDIRECTED PRN Sodium Chloride 0.9% [Saline Flush] 2.5 ml FLUSH ASDIRECTED PRN Saline Lock Insert [OM.PC] Stat
[2020-08-05] MEDS ORDERED: Sodium Chloride 0.9% 2.5 ML Syringe FLUSH PRN (09:00)
[2020-08-05] MEDS ORDERED: Alum Hydrox/Mag Hydrox/Simeth 15 ML, Lidocaine 2% 5 ML PO ONE ×2 (09:00)
[2020-08-05] MEDS ORDERED: Pantoprazole 40 MG in Sodium Chloride 0.9% 10 ML IV ONE (09:00)
[2020-08-05] MEDS ORDERED: Sodium Chloride 0.9% 10 ML Syringe FLUSH PRN (09:00)
[2020-08-05] MEDS ORDERED: Sodium Chloride 0.9% 1,000 ML IV ONE (09:00)
[2020-08-05] MEDS ORDERED: LORazepam 2 MG/ML SDV IVPUSH ONE (09:04)
[2020-08-05 09:26] LABS: BLOOD UREA NITROGEN,BUN 6 mg/dL (7.0-18.0); CHLORIDE,CL 102 mmol/L (98-107); GLUCOSE RANDOM 136 mg/dL (74-106); LIPASE 56 U/L (73-393); POTASSIUM,K 4.6 mmol/L (3.5-5.1); SODIUM,NA 137 mmol/L (136-148)
== END 2020-08-05 10:50 | disposition home or self-care (01) ==
LOC: MW.ED 08:36
DX: R09.89 Other specified symptoms and signs involving the circulatory and respiratory systems (principal); K21.9 Gastro-esophageal reflux disease without esophagitis; F41.9 Anxiety disorder, unspecified; J44.9 Chronic obstructive pulmonary disease, unspecified; I10 Essential (primary) hypertension; I25.2 Old myocardial infarction; I25.10 Atherosclerotic heart disease of native coronary artery without angina pectoris; Z88.5 Allergy status to narcotic agent; Z88.0 Allergy status to penicillin; Z79.82 Long term (current) use of aspirin; Z87.891 Personal history of nicotine dependence; Z79.899 Other long term (current) drug therapy
CPT/HCPCS: 36415; 80053; 83690; 85025; 93005; 96374; 96375; 99284; A9270; C9113; J2060; J7030; 93010; 99283

== ENCOUNTER 2021-08-01 16:23 | Emergency (ER) | payer OTHER, MEDICARE ==
[2021-08-01] MEDS ORDERED: Ondansetron 4 MG/2 ML SDV ONE (16:29)
[2021-08-01] MEDS ORDERED: Morphine 4 MG/ML VIAL ONE (16:29)
[2021-08-01] MEDS ORDERED: Morphine 4 MG/ML Syringe IVPUSH ONE (16:39)
[2021-08-01] MEDS ORDERED: Ondansetron 4 MG/2 ML SDV IVPUSH ONE (16:42)
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
[2021-08-01] MEDS ORDERED: Iopamidol 755 MG/ML 500 ML Multipack Bottle IVPUSH STA (17:06)
[2021-08-01] MEDS ORDERED: HYDROmorphone 1 MG/ML Syringe IVPUSH ONE ×2 (17:11→18:08)
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
[2021-08-01 17:56] LABS: BLOOD UREA NITROGEN,BUN 5 mg/dL (7.0-18.0); CARBON DIOXIDE,CO2 25.2 mmol/L (21.0-32.0); CHLORIDE,CL 101 mmol/L (98-107); GLUCOSE RANDOM 92 mg/dL (74-106); POTASSIUM,K 4.3 mmol/L (3.5-5.1); SODIUM,NA 134 mmol/L (136-148)
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
--- NOTE | 2021-08-01 21:40 | CR ---
Indication: Pain Technique: Three views Comparison: None Findings: Bones: Diffuse osteopenia. No evidence of fracture. Mild nonspecific periosteal reaction along the lateral margin of the 5th metatarsal. Joint spaces: Minimal midfoot osteophytes. No dislocation. Soft tissues: Atherosclerosis. Dictated by Gaurav Khoury MD @ 08/01/2021 9:39:00 PM (Electronically Signed)
== END 2021-08-01 21:53 | disposition home or self-care (01) ==
LOC: MW.ED 16:23
DX: S93.602A Unspecified sprain of left foot, initial encounter (principal); S13.4XXA Sprain of ligaments of cervical spine, initial encounter; I25.2 Old myocardial infarction; I10 Essential (primary) hypertension; I25.10 Atherosclerotic heart disease of native coronary artery without angina pectoris; J44.9 Chronic obstructive pulmonary disease, unspecified; Z88.5 Allergy status to narcotic agent; Z88.0 Allergy status to penicillin; Z79.82 Long term (current) use of aspirin; Z79.899 Other long term (current) drug therapy; V89.2XXA Person injured in unspecified motor-vehicle accident, traffic, initial encounter
CPT/HCPCS: 36415; 70450; 71260; 72125; 73100; 73590; 73630; 74177; 80053; 81003; 85025; 96374; 96375; 96376; 99285; J1170; J2270; J2405; J3360; Q9967; 72128-26; 72131-26

== ENCOUNTER 2022-11-13 12:48 | Emergency (ER) | payer MEDICARE | END 2022-11-13 13:53 | disposition home or self-care (01) | LOC: MW.ED 12:48 | DX: G89.29 Other chronic pain (principal); M25.511 Pain in right shoulder; H00.011 Hordeolum externum right upper eyelid; I25.10 Atherosclerotic heart disease of native coronary artery without angina pectoris; I10 Essential (primary) hypertension; I25.2 Old myocardial infarction; J44.9 Chronic obstructive pulmonary disease, unspecified; Z88.5 Allergy status to narcotic agent; Z88.0 Allergy status to penicillin; Z79.899 Other long term (current) drug therapy; Z79.82 Long term (current) use of aspirin | CPT/HCPCS: 99283 ==

== ENCOUNTER 2023-10-23 07:56 | Emergency (ER) | payer MEDICARE ==
[2023-10-23] MEDS ORDERED: Aspirin 81 MG Tab.Chew PO ONE (08:15)
[2023-10-23] MEDS ORDERED: Nitroglycerin 0.4 MG Tab.SL SL PRN (08:15)
[2023-10-23 08:26] LABS: BASOPHILS ABSOLUTE AUTO 0.06 K/uL (0.00-0.20); BASOPHILS PERCENT AUTO 0.8 % (0.0-1.0); EOSINOPHILS ABSOLUTE AUTO 0.09 K/uL (0.00-0.45); EOSINOPHILS PERCENT AUTO 1.2 % (0.0-6.0); HEMOGLOBIN 13.8 g/dL (14.0-18.0); IMMATURE GRAN ABSOLUTE AUTO 0.02 K/uL (0.00-0.05); IMMATURE GRAN PERCENT AUTO 0.3 % (0.0-0.4); LYMPHOCYTES ABSOLUTE AUTO 2.02 K/uL (1.00-4.80); LYMPHOCYTES PERCENT AUTO 27.7 % (24.0-44.0); MEAN CORPUSCULAR HEMOGLOBIN 24.6 pg (28.0-32.0); MEAN CORPUSCULAR HGB CONC 31.4 g/dL (32.0-36.0); MEAN CORPUSCULAR VOLUME 78.3 fL (83.0-99.0); MEAN PLATELET VOLUME 10.6 fL (9.4-12.4); MONOCYTES ABSOLUTE AUTO 0.57 K/uL (0.00-0.80); MONOCYTES PERCENT AUTO 7.8 % (0.0-8.0); NEUTROPHILS ABSOLUTE AUTO 4.52 K/uL (1.80-7.70); NEUTROPHILS PERCENT AUTO 62.2 % (41.0-71.0); PLATELET COUNT,PLT 220 K/uL (150-400); RED BLOOD CELL COUNT 5.62 M/uL (4.52-5.90); WHITE BLOOD CELL COUNT,WBC 7.28 K/uL (3.9-11.3)
[2023-10-23 08:40] LABS: INR 1.1 (0.86-1.11); PTT,PARTIAL THROMBOPLSTIN TIME 30.9 SEC (23.9-30.7)
[2023-10-23 09:02] LABS: A/G RATIO 0.9 (0.9-1.6); ALBUMIN 3.8 g/dL (3.4-5.0); BILIRUBIN TOTAL 0.6 mg/dL (0.2-1.0); CALCIUM 9.2 mg/dL (8.5-10.1); CREATININE 0.9 mg/dL (0.8-1.3); EST CRCL DRUG DOSING (CG) 81.43 mL/min; MAGNESIUM 1.8 mg/dL (1.8-2.4); POTASSIUM,K 4.2 mmol/L (3.5-5.1)
== END 2023-10-23 11:09 | disposition home or self-care (01) ==
LOC: MW.ED 07:56
DX: R06.02 Shortness of breath (principal); I10 Essential (primary) hypertension; I25.2 Old myocardial infarction; I25.10 Atherosclerotic heart disease of native coronary artery without angina pectoris; Z88.0 Allergy status to penicillin; Z88.8 Allergy status to other drugs, medicaments and biological substances; Z79.899 Other long term (current) drug therapy
CPT/HCPCS: 36415; 71045; 80053; 82947; 83735; 83880; 84484; 85025; 85610; 85730; 93005; 99285; A9270; 93010; 99283

== ENCOUNTER 2023-10-27 00:10 | Emergency (ER) | payer MEDICARE ==
[2023-10-27 00:32] LABS: BASOPHILS ABSOLUTE AUTO 0.08 K/uL (0.00-0.20); BASOPHILS PERCENT AUTO 0.8 % (0.0-1.0); EOSINOPHILS ABSOLUTE AUTO 0.31 K/uL (0.00-0.45); EOSINOPHILS PERCENT AUTO 3.3 % (0.0-6.0); HEMATOCRIT 42.5 % (42.0-52.0); HEMOGLOBIN 13.6 g/dL (14.0-18.0); IMMATURE GRAN ABSOLUTE AUTO 0.01 K/uL (0.00-0.05); IMMATURE GRAN PERCENT AUTO 0.1 % (0.0-0.4); LYMPHOCYTES ABSOLUTE AUTO 3.46 K/uL (1.00-4.80); LYMPHOCYTES PERCENT AUTO 36.4 % (24.0-44.0); MEAN CORPUSCULAR VOLUME 78.3 fL (83.0-99.0); MEAN PLATELET VOLUME 11.2 fL (9.4-12.4); MONOCYTES ABSOLUTE AUTO 0.84 K/uL (0.00-0.80); MONOCYTES PERCENT AUTO 8.8 % (0.0-8.0); NEUTROPHILS ABSOLUTE AUTO 4.81 K/uL (1.80-7.70); NEUTROPHILS PERCENT AUTO 50.6 % (41.0-71.0); PLATELET COUNT,PLT 224 K/uL (150-400); RED BLOOD CELL COUNT 5.43 M/uL (4.52-5.90); WHITE BLOOD CELL COUNT,WBC 9.51 K/uL (3.9-11.3)
[2023-10-27 00:58] LABS: ALBUMIN 3.7 g/dL (3.4-5.0); BILIRUBIN TOTAL 0.4 mg/dL (0.2-1.0); CARBON DIOXIDE,CO2 22.6 mmol/L (21.0-32.0); CREATININE 0.9 mg/dL (0.8-1.3); EST CRCL DRUG DOSING (CG) 81.43 mL/min; POTASSIUM,K 4.1 mmol/L (3.5-5.1); PROTEIN TOTAL,TP 7.5 g/dL (6.4-8.2)
[2023-10-27] MEDS ORDERED: Sodium Chloride 0.9% 10 ML Syringe FLUSH PRN (01:07)
[2023-10-27] MEDS ORDERED: Sodium Chloride 0.9% 2.5 ML Syringe FLUSH PRN (01:07)
[2023-10-27] MEDS ORDERED: Morphine 4 MG/ML Syringe IVPUSH PRN (01:08)
[2023-10-27] MEDS ORDERED: Naloxone 0.4 MG/ML SDV IVPUSH PRN (01:08)
[2023-10-27 01:57] LABS: AMPHETAMINES SCREEN, URINE NEGATIVE (CUTOFF=500); BARBITURATE SCREEN,URINE NEGATIVE (CUTOFF=200); BENZODIAZEPINES SCREEN,URINE NEGATIVE (CUTOFF=150); BUPRENORPHINE SCREEN,URINE NEGATIVE (CUTOFF=10); METHADONE SCREEN, URINE NEGATIVE (CUTOFF=200); METHAMPHETAMINES SCREEN, URINE NEGATIVE (CUTOFF=500); OXYCODONE SCREEN,URINE NEGATIVE (CUT0FF=100); PCP SCREEN,URINE NEGATIVE (CUTOFF=25); THC SCREEN,URINE 20 NG/ML NEGATIVE (CUTOFF=50)
[2023-10-27] MEDS ORDERED: Iopamidol 755 MG/ML 500 ML Multipack Bottle IVPUSH STA (03:38)
== END 2023-10-27 06:15 | disposition home or self-care (01) ==
LOC: MW.ED 00:10
DX: I10 Essential (primary) hypertension (principal); I25.10 Atherosclerotic heart disease of native coronary artery without angina pectoris; I25.2 Old myocardial infarction; J44.9 Chronic obstructive pulmonary disease, unspecified; Z79.82 Long term (current) use of aspirin; Z79.899 Other long term (current) drug therapy; Z88.0 Allergy status to penicillin; Z88.5 Allergy status to narcotic agent
CPT/HCPCS: 36415; 71045; 71275; 80053; 80305; 83880; 84484; 85025; 93005; 99285; J3490; Q9967; 93010; 99284

== ENCOUNTER 2024-11-11 11:26 | Emergency (ER) | payer MEDICARE | END 2024-11-11 12:40 | disposition left against medical advice (07) | LOC: MW.ED 11:26 | DX: Z53.21 Procedure and treatment not carried out due to patient leaving prior to being seen by health care provider (principal) ==

== ENCOUNTER 2025-04-27 16:05 | Observation (INO) | payer MEDICARE ==
[2025-04-27 16:55] LABS: BASOPHILS ABSOLUTE AUTO 0.04 K/uL (0.00-0.20); BASOPHILS PERCENT AUTO 0.4 % (0.0-1.0); EOSINOPHILS ABSOLUTE AUTO 0.12 K/uL (0.00-0.45); EOSINOPHILS PERCENT AUTO 1.2 % (0.0-6.0); IMMATURE GRAN ABSOLUTE AUTO 0.03 K/uL (0.00-0.05); IMMATURE GRAN PERCENT AUTO 0.3 % (0.0-0.4); LYMPHOCYTES ABSOLUTE AUTO 1.88 K/uL (1.00-4.80); LYMPHOCYTES PERCENT AUTO 19.5 % (24.0-44.0); MEAN PLATELET VOLUME 10.4 fL (9.4-12.4); MONOCYTES ABSOLUTE AUTO 0.66 K/uL (0.00-0.80); MONOCYTES PERCENT AUTO 6.8 % (0.0-8.0); NEUTROPHILS ABSOLUTE AUTO 6.93 K/uL (1.80-7.70); NEUTROPHILS PERCENT AUTO 71.8 % (41.0-71.0); NRBC ABSOLUTE 0.00 K/uL (0.00-0.02); NRBC PERCENT 0.0 /100WBC (0.0-0.2); PLATELET COUNT,PLT 194 K/uL (150-400); RED BLOOD CELL COUNT 5.43 M/uL (4.52-5.90); WHITE BLOOD CELL COUNT,WBC 9.66 K/uL (3.9-11.3)
[2025-04-27] MEDS: Ondansetron 4 MG/2 ML SDV IVPUSH ONE (17:05)
[2025-04-27 17:34] LABS: A/G RATIO 1.0 (0.9-1.6); ALANINE AMINOTRANSFERASE,ALT 14.0 IU/L (14-63); ASPARTATE AMNIOTRANSFERASE,AST 13.0 IU/L (15-37); BILIRUBIN TOTAL 0.6 mg/dL (0.2-1.0); BLOOD UREA NITROGEN,BUN 12.0 mg/dL (7.0-18.0); CARBON DIOXIDE,CO2 26.2 mmol/L (21.0-32.0); CHLORIDE,CL 91.0 mmol/L (98-107); CREATININE 0.9 mg/dL (0.8-1.3); EST CRCL DRUG DOSING (CG) 80.23 mL/min; GLUCOSE RANDOM 152.0 mg/dL (74-106); POTASSIUM,K 3.9 mmol/L (3.5-5.1); PRO B-TYPE NATRIUR PEPT,BNPPRO 27.0 pg/mL (0-125); PROTEIN TOTAL,TP 7.3 g/dL (6.4-8.2); SODIUM,NA 127.0 mmol/L (136-148)
[2025-04-27 17:44] LABS: ESTIMATED GFR 90.0 mL/min (>60)
[2025-04-27 17:50] LABS: APPEARANCE,URINE CLEAR; GLUCOSE,URINE NEGATIVE (NEGATIVE); OCCULT BLOOD,URINE NEGATIVE (NEGATIVE)
[2025-04-27] MEDS: Ondansetron 4 MG Tab.DIS PO ONE (18:24)
[2025-04-27] MEDS: Iopamidol 755 MG/ML 500 ML Multipack Bottle IVPUSH STA (18:58)
[2025-04-27] MEDS: Magnesium Sulfate 2 GM/50 mL 2 GM in Premix Bag 1 BAG IV ONE (19:38)
[2025-04-27] MEDS: Ondansetron 4 MG/2 ML SDV IVPUSH PRN (23:37)
[2025-04-28] MEDS ORDERED: Sodium Chloride 0.9% 2.5 ML Syringe FLUSH PRN (01:21)
[2025-04-28] MEDS ORDERED: Sodium Chloride 0.9% 10 ML Syringe FLUSH PRN (01:21)
[2025-04-28 05:59] LABS: BASOPHILS ABSOLUTE AUTO 0.03 K/uL (0.00-0.20); BASOPHILS PERCENT AUTO 0.2 % (0.0-1.0); EOSINOPHILS ABSOLUTE AUTO 0.01 K/uL (0.00-0.45); EOSINOPHILS PERCENT AUTO 0.1 % (0.0-6.0); IMMATURE GRAN ABSOLUTE AUTO 0.06 K/uL (0.00-0.05); IMMATURE GRAN PERCENT AUTO 0.5 % (0.0-0.4); LYMPHOCYTES ABSOLUTE AUTO 1.87 K/uL (1.00-4.80); LYMPHOCYTES PERCENT AUTO 15.6 % (24.0-44.0); MEAN PLATELET VOLUME 10.2 fL (9.4-12.4); MONOCYTES ABSOLUTE AUTO 0.68 K/uL (0.00-0.80); MONOCYTES PERCENT AUTO 5.7 % (0.0-8.0); NEUTROPHILS ABSOLUTE AUTO 9.36 K/uL (1.80-7.70); NEUTROPHILS PERCENT AUTO 77.9 % (41.0-71.0); NRBC ABSOLUTE 0.00 K/uL (0.00-0.02); NRBC PERCENT 0.0 /100WBC (0.0-0.2); PLATELET COUNT,PLT 202 K/uL (150-400); RED BLOOD CELL COUNT 6.03 M/uL (4.52-5.90); WHITE BLOOD CELL COUNT,WBC 12.01 K/uL (3.9-11.3)
[2025-04-28 06:23] LABS: BLOOD UREA NITROGEN,BUN 7.0 mg/dL (7.0-18.0); CARBON DIOXIDE,CO2 23.1 mmol/L (21.0-32.0); CHLORIDE,CL 98.0 mmol/L (98-107); CREATININE 1.1 mg/dL (0.8-1.3); EST CRCL DRUG DOSING (CG) 65.65 mL/min; GLUCOSE RANDOM 135.0 mg/dL (74-106); POTASSIUM,K 3.8 mmol/L (3.5-5.1); SODIUM,NA 134.0 mmol/L (136-148)
[2025-04-28 06:24] LABS: ESTIMATED GFR 71.0 mL/min (>60)
== END 2025-04-28 13:15 | disposition home or self-care (01) ==
LOC: MW.ED 16:05 → MW.MS 20:46
PROVIDERS: ADMIT Internal Medicine; ATTEND Internal Medicine
DX: R11.2 Nausea with vomiting, unspecified (principal); K76.0 Fatty (change of) liver, not elsewhere classified; E87.1 Hypo-osmolality and hyponatremia; I25.10 Atherosclerotic heart disease of native coronary artery without angina pectoris; I10 Essential (primary) hypertension; Z88.0 Allergy status to penicillin; Z88.5 Allergy status to narcotic agent; Z79.82 Long term (current) use of aspirin; Z79.899 Other long term (current) drug therapy
CPT/HCPCS: 36415; 71045; 74177; 80048; 80053; 81003; 83690; 83735; 83880; 84484; 85025; 93005; 96361; 96365; 96375; 96376; 99285; A9270; G0378; J2270; J2405; J2765; J3475; J7030; Q9967; 93010